=== PATIENT | male | born 1940 | race Caucasian/White ===

== ENCOUNTER 2019-10-13 06:56 | Outpatient (CLI) | payer MEDICARE, OTHER, SELFPAY ==
--- NOTE | 2019-10-13 07:13 | US_ITS ---
WS: [id number] RIGHT UPPER QUADRANT ULTRASOUND HISTORY: LIVER FUNCTION TEST ABNORMAL COMPARISON: CT abdomen 09/28/2019 Liver: 16.5 cm in length. Mild enlargement of the liver. Diffuse heterogeneity throughout the liver. Portal vein remains patent. Gallbladder: Abnormal gallbladder. Diffuse gallbladder wall thickening. No pericholecystic fluid. Pro minent gallbladder fold but no definite stones are identified. Small stones could be obscured within the gallbladder fold. CBD: 6.2 mm Pancreas: Not well visualized. Right kidney: 9.3 cm in length. Exophytic cyst from the superior pole of the RIGHT kidney measures 4. 2 x 3.7 x 5.0 cm. Cyst arises from an area of cortical thinning and scarring. No solid mass or obstru ction. Aorta and IVC: Unremarkable. No ascites. US/US abdomen limited [id number] IMPRESSION: 1. Markedly abnormal gallbladder. Diffuse gallbladder wall thickening with a p rominent fold. Changes may be related to chronic cholecystitis or hepatocellula r disease. Due to the marked abnormal appearance of the gallbladder suggest nadege gical evaluation. No definite cholelithiasis. 2. Common bile duct is top normal size at 6.2 mm. 3. Simple cyst RIGHT kidney.
== END 2019-10-13 06:57 | disposition home or self-care (01) ==
LOC: RAD 07:04
PROVIDERS: Family Provider Family Medicine; PCP Family Medicine; Visit Provider Family Medicine
DX: N28.1 Cyst of kidney, acquired (principal); R94.8 Abnormal results of function studies of other organs and systems; R10.84 Generalized abdominal pain
CPT/HCPCS: 76705

== ENCOUNTER 2019-11-02 06:45 | Outpatient (CLI) | payer MEDICARE, OTHER, SELFPAY ==
--- NOTE | 2019-11-02 07:15 | US_ITS ---
WS: [id number] RIGHT UPPER QUADRANT ULTRASOUND HISTORY: FOLLOW UP FROM CT COMPARISON: 09/28/2019 CT. Liver: 17.3 cm in length. Liver is mildly enlarged. Surface of the liver is slightly nodular. No bile duct or intrahepatic duct dilatation. No mass. Gallbladder: Mild diffuse gallbladder wall thickening. Gallbladder wall measures 4.8 mm. No perichole cystic fluid. There is a small polyp, prominent fold or tumefactive sludge in the gallbladder. CBD: 4.7 mm Pancreas: Normal size and echogenicity. Right kidney: 10.5 cm in length. Mild increased echogenicity and lobulated renal contour. No solid ma ss. There is a simple cyst exophytic from the upper pole measuring 4.5 x 4.1 x 3.1 cm. Aorta and IVC: Unremarkable. No ascites. US/US gall bladder [id number] IMPRESSION: 1. Abnormal gallbladder. Diffuse gallbladder wall thickening without acute per icholecystic fluid. Suspect the changes are all related to chronic cholecystiti s or hepatocellular disease. No Mcmullen's sign. 2. Early cirrhosis suspected. 3. Simple RIGHT renal cyst.
[2019-11-02 08:18] LABS: Alanine Aminotransferase 15 U/L (0-41); Albumin Level 4.5 g/dL (3.5-5.2); Alkaline Phosphatase 157 IU/L (40-130); Aspartate Amino Transferase 18 U/L (0-40); Total Bilirubin 0.9 mg/dL (0.15-1.2); Total Protein 7.5 g/dL (6.6-8.7)
== END 2019-11-02 06:46 | disposition home or self-care (01) ==
PROVIDERS: Family Provider Family Medicine; PCP Family Medicine; Visit Provider Surgery
DX: N28.1 Cyst of kidney, acquired (principal); R93.3 Abnormal findings on diagnostic imaging of other parts of digestive tract; R93.2 Abnormal findings on diagnostic imaging of liver and biliary tract
CPT/HCPCS: 36415; 76705; 80076

== ENCOUNTER 2019-12-23 13:56 | Outpatient (CLI) | payer MEDICARE, OTHER, SELFPAY ==
--- NOTE | 2019-12-23 15:00 | USCV_ITS ---
Phylicia Chico Age: 79 Gender: M : 1940 Exam Date: 12/23/2019 14:16 Ordering Phys: Milka Briscoe MD ([email or web address]) Technologist: Rosendo Torre Exam Location: [facility] [place] Indication: aortic regurgitiation BP: 134 / 84 HR: 93 Rhythm: Sinus Technical Quality: Adequate MEASUREMENTS (Male / Female) Normal Values 2D ECHO LV Diastolic Diameter PLAX 4.1 cm 4.2 - 5.9 / 3.9 - 5.3 cm LV Systolic Diameter PLAX 3.0 cm IVS Diastolic Thickness 1.1 cm 0.6 - 1.0 / 0.6 - 0.9 cm IVS Systolic Thickness 1.6 cm LVPW Diastolic Thickness 1.1 cm 0.6 - 1.0 / 0.6 - 0.9 cm LVPW Systolic Thickness 1.3 cm LVOT Diameter 2.0 cm LV Ejection Fraction 2D Teich 52.7 % LV Ejection Fraction MOD 2C 65.1 % LV Ejection Fraction 2C AL 64.5 % LA Diameter 3.7 cm LA Width 4.3 cm LA Height 4.6 cm RA Width 3.2 cm RA Height 4.3 cm Aorta at Sinotubular Diameter 3.5 cm M-MODE LV Diastolic Diameter MM 4.8 cm 4.2 - 5.9 / 3.9 - 5.3 cm LV Systolic Diameter MM 3.6 cm LV Ejection Fraction MM Teich 49.1 % IVS Diastolic Thickness MM 0.9 cm 0.6 - 1.0 / 0.6 - 0.9 cm IVS Systolic Thickness MM 0.9 cm LVPW Diastolic Thickness MM 1.1 cm 0.6 - 1.0 / 0.6 - 0.9 cm LVPW Systolic Thickness MM 1.6 cm RV Diastolic Diameter MM 1.8 cm Aortic Annulus Diameter 4.3 cm LA Ao Ratio MM 0.9 MV E Point Septal Separation 1.9 cm DOPPLER AV Peak Velocity 230.0 cm/s LVOT Peak Velocity 114.0 cm/s AV Area Cont Eq vti 2.0 cm squared AV Area Cont Eq pk 1.6 cm squared MV Area PHT 1.8 cm squared Mitral E to A Ratio 0.7 MV E' Velocity 9.0 cm/s Mitral E to MV E' Ratio 1.8 Mitral E to LV E' Lateral Ratio 8.4 Mitral E to LV E' Septal Ratio 1.0 TR Peak Velocity 244.0 cm/s TR Peak Gradient 23.8 mmHg TV Peak E Velocity 72.0 cm/s Right Atrial Pressure 3.0 mmHg Pulmonary Artery Systolic Pressu 26.8 mmHg FINDINGS Left Ventricle Normal left ventricular size, systolic function and wall thickness, with no regional wall motion abnormalities. Left ventricular ejection fraction is estimated at 55-60 %. Right Ventricle Normal right ventricular size and systolic function. Right ventricular systolic pressure 26.8 mmHg. Right Atrium Normal right atrial size. Right atrial pressure estimated at 3 mmHg. Left Atrium Normal left atrial size. Mitral Valve Moderately thickened mitral valve. No mitral valve stenosis. Mild mitral valve regurgitation. Aortic Valve Mildly thickened and calcified trileaflet aortic valve. Aortic valve sclerosis without stenosis. Moderate aortic valve regurgitation. Tricuspid Valve Structurally normal tricuspid valve. Mild tricuspid valve regurgitation. Pulmonic Valve Pulmonic valve not well visualized. Trace pulmonary valve regurgitation. Pericardium No pericardial effusion. Aorta Upper normal aortic root. Ascending aorta not well visualized. CONCLUSIONS 1. Normal left ventricular size, systolic function and wall thickness, with no regional wall motion abnormalities. Left ventricular ejection fraction is estimated at 55-60 %. 2. Normal right ventricular size and systolic function. 3. Moderate aortic valve regurgitation. 4. Pulmonary artery pressure estimated at 27 mmHg. 5. When compared to previous echocardiogram dated 11/08/2013, there is aortic valve regurgitation now. Milka Briscoe MD (Electronically Signed) Final Date: 25 December 2019 15:47 S
== END 2019-12-23 13:57 | disposition home or self-care (01) ==
LOC: US 13:58
PROVIDERS: Family Provider Family Medicine; PCP Family Medicine; Visit Provider Internal Medicine Cardiovascular Disease
DX: I35.1 Nonrheumatic aortic (valve) insufficiency (principal); I49.9 Cardiac arrhythmia, unspecified
CPT/HCPCS: 93306

== ENCOUNTER 2020-12-22 09:37 | Outpatient (CLI) | payer MEDICARE, OTHER, SELFPAY ==
--- NOTE | 2020-12-22 10:30 | CT_ITS ---
WS: [id number] CT scan of the thoracic aorta. Additional two-dimensional coronal and sagittal reconstruction was per formed. MIP images were also performed. 12/22/2020 Clinical Data: I35.1 - Nonrheumatic aortic (valve) insufficiency Comparison: None. DLP: 1509.[address] scans at [facility] use at least one of these dose optimization techniques: automat ed exposure control; mA and/or kV adjustment per patient size (includes targeted exams where dose is matched to clinical indication); or iterative reconstruction. Findings: The proximal portion of the ascending thoracic aorta in greatest diameter is 4.37 cm. The aortic arch measures 3.33 cm. The greatest diameter of the descending thoracic aorta is 3.41 cm. No dissection i s seen. There is minimal calcification in the wall of the descending thoracic aorta. The pulmonary arterial system is normal. Heart size is at the upper limits of normal. There is mitral and aortic valvular calcification. There is calcification of the left coronary artery. No pericardia l fluid is seen. There are a large number of anterior and middle mediastinal lymph nodes but no axill tacos lymph nodes. No pneumonia or pneumothorax is seen. No nodules, masses or effusions are present. T here is a small hiatal hernia. The upper abdomen shows a 4.75 cm cyst in the superior pole of the right kidney. The bones of the tho rax demonstrate mild osteoarthritic change. CT/CT angio chest [id number] IMPRESSION: 1. Minimal dilatation of the ascending thoracic aorta of 4.37 cm. 2. Calcification of the mitral and aortic valves and calcification in the left coronary artery.
[2020-12-22 10:52] LABS: Blood Urea Nitrogen 18 mg/dL (8-23)
[2020-12-22] MEDS: iohexol 350 mg/mL 100 mL Btl IV (11:04)
== END 2020-12-22 09:38 | disposition home or self-care (01) ==
LOC: RADWPI 09:38
PROVIDERS: PCP Family Medicine; Visit Provider Internal Medicine Cardiovascular Disease
DX: I35.1 Nonrheumatic aortic (valve) insufficiency (principal); I77.810 Thoracic aortic ectasia; M72.2 Plantar fascial fibromatosis; I25.10 Atherosclerotic heart disease of native coronary artery without angina pectoris
CPT/HCPCS: 71275; 82565; 84520; Q9967

== ENCOUNTER 2021-08-21 09:38 | Outpatient (CLI) | payer MEDICARE, OTHER, SELFPAY ==
--- NOTE | 2021-08-21 09:43 | FL_ITS ---
WS: [id number] Exam: MN upper GI series [id number] Date/Time of Exam: 08/21/2021 9:43 AM Reason For Exam: DYSPHAGIA, INTERMITTENT Swallowing function was normal the level of the oropharynx. There is significant esophageal spasm of the mid and lower esophagus. A small hiatal hernia with gastroesophageal reflux was noted during fluo roscopic examination. No esophageal stricture or mass was noted. There is prominence of gastric mucos a suggesting gastritis. No gastric mass or ulcer was seen. The duodenal bulb and C-loop appear normal . A jejunal diverticulum is noted. MN/MN upper GI series [id number] IMPRESSION: 1. Presbyesophagus. Moderate size hiatal hernia and gastroesophageal reflux ext ending into the lower one third of the esophagus. 2. Prominent gastric mucosa suggesting gastritis. No gastric or duodenal ulcer identified. Small bowel diverticulum.
== END 2021-08-21 09:39 | disposition home or self-care (01) ==
PROVIDERS: PCP Family Medicine; Visit Provider Family Medicine
DX: K44.9 Diaphragmatic hernia without obstruction or gangrene (principal); K21.9 Gastro-esophageal reflux disease without esophagitis
CPT/HCPCS: 74240

== ENCOUNTER → 2021-12-26 07:53 | Day surgery (SDC) | payer MEDICARE, OTHER, SELFPAY ==
[2021-12-26] VITALS (11 sets, daily range): BP systolic 117–138; BP diastolic 61–99; PULSE 72–88; RESP 16–18; TEMP 36.1–36.5; O2SAT 96–99; BMI 27.0
[2021-12-26] MEDS: acetaminophen 500 mg Tablet PO ×2 (08:57→12:44)
[2021-12-26] MEDS: diphenhydrAMINE 12.5 mg/5 mL UDC 10 mL PO ×2 (08:58→12:38)
[2021-12-26] MEDS: sodium chloride 0.9% (100 ml) 100 ML 30 ML ×2 (10:05→13:10)
== END ==
PROVIDERS: Visit Provider Family Medicine
DX: D64.9 Anemia, unspecified (principal); R06.02 Shortness of breath; I48.91 Unspecified atrial fibrillation
CPT/HCPCS: 36415; 36430; 86850; 86900; 86920; P9016; P9040

== ENCOUNTER 2022-01-10 13:54 | Outpatient (CLI) | payer MEDICARE, OTHER, SELFPAY ==
[2022-01-10 15:02] LABS: Basophils % 0.8 %; Eosinophils # 0.1 10^3/uL (0.0-0.8); Eosinophils % 1.3 %; Hematocrit 33.7 % (42.0-52.0); Hemoglobin 10.1 g/dL (11.7-16.6); Lymphocytes # 0.9 10^3/uL (0.8-4.8); Lymphocytes % 17.9 %; Mean Corpuscular Hemoglobin 22.1 pg (28.0-34.0); Mean Corpuscular Volume 73.7 fl (80-94); Mean Platelet Volume 8.6 fL (7.4-10.4); Monocytes # 0.6 10^3/uL (0.2-0.9); Monocytes % 11.9 %; Neutrophils # 3.25 10^3/uL (1.8-7.7); Neutrophils % 67.7 %; Nucleated Red Blood Cells % 0 %; Platelet Count 323 10^3/cmm (130-400); Red Blood Count 4.57 10^6/uL (4.1-5.3); Red Cell Distribution Width 25.1 % (12.1-15.1); White Blood Count 4.8 10^3/uL (4.0-10.0)
[2022-01-10 15:18] LABS: Ferritin 26 ng/mL (30-400); Iron 29 ug/dL (59-158); Total Iron Binding Capacity 360 mcg/dl; Unsaturated Iron Binding 331 ug/dL (112-347)
[2022-01-10 15:35] LABS: Vitamin B12 923 pg/mL (232-1245)
--- NOTE | 2022-01-10 16:52 | ONC CON_ITS ---
Dr. Cota New Patient Note Patient: Chico Whatley Unit #: [id number]: 1940 Dicatated By: Ene Cota M.D.Date of Visit: Jan 10, 2022 Onc MED New Patient/Consult Referring Physician: Dr. Sammy Cai M.D. History of Present Illness: Mr. Braden Whatley, is a 81-year-old gentleman with history of atrial fibrillation started on anticoagulation with Eliquis in the beginning but due to high copayment, he was switched to Xarelto, as per patient within few weeks of starting anticoagulation, he started feeling weak and tired, progressive dyspnea on exertion and hip/lower back pain after walking or exertion, and on December 21, 2021, he went to see his PMD and CBC done on that day showed white blood count 4.3 hemoglobin 6.9 g hematocrit 24, platelets 286,000 MCV 68.6, patient was given 2 units of packed RBC and started on oral iron. Patient denies any history of melena or hematochezia, denies any history of hemoptysis or hematemesis denies any history of hematuria denies any jaundice. Patient said his last colonoscopy was done in October [address] Dominguez and it was unremarkable never had EGD. Patient denies any indigestion or heartburn, denies any abdominal pain or fullness, denies any recurrent fever, denies any weight loss denies any peripheral lymphadenopathy, denies any night sweats. Patient said after blood transfusion he felt much better his dyspnea on exertion improved his hip/lower back pain resolved and now tolerating oral iron well and take Metamucil for constipation. Past Medical History: Mr. Whatley's medical history consists of aortic regurgitation, arteriosclerosis, atrial fibrillation, dyslipidemia, hypertension, and stroke. Past Surgical History: Mr. Whatley's surgical history is unremarkable. Medications: Advil PM 2 Tablet (of 200-38 mg) Oral at bedtime, Aspirin 1 Tablet (of 81 mg) Tablet, enteric coated Oral daily, B-12 1 Tablet (of 1000 mcg) Oral daily, Cetirizine HCl 1 Tablet (of 10 mg) Oral daily, Cholecalciferol 1 Tablet (of 25 mcg ) Oral daily, dilTIAZem HCl ER Coated Beads Capsule SR 24 HR Oral, Ferrous Sulfate 1 Tablet (of 325 (65 fe) mg) Oral daily, Fluticasone Propionate Suspension Nasal, hydroCHLOROthiazide Capsule Oral, LORazepam Tablet Oral, Losartan Potassium Tablet Oral, Pantoprazole Sodium 1 Tablet (of 40 mg) Tablet, enteric coated Oral daily, Rivaroxaban 1 Tablet (of 20 mg) Oral Allergies: No Known Allergies. Social History: Mr. Whatley is . Mr. Whatley no longer smokes. He is an active drinker. patient reported drinking 1 glass of wine per night. Family History: There is no documented family history. Review Of Symptoms: Review of Systems is not available for this patient. Vital Signs: Performed on Jan 10, 2022 15:32: 2, 0, 0.00, 0.00 sq.m, 98 %, 86 /min, 18 /min, 133/90 mm(hg), 96.9 F (LOW), and 172.6 lbs (HIGH). Performance Status: 1 - No physically strenuous activity, but ambulatory and able to carry out light or sedentary work (e.g. office work, light house work). (ECOG) Physical Examination: ENMT - No mouth sores, no thrush, no jaundice, no cervical lymphadenopathy, Respiratory - Poor air entry otherwise clear, Cardiovascular - Irregular rhythm and rate, Abdomen - Soft, bowel sounds present, Extremities - , No visible edema. Lab/Imaging: Most recent lab results are not available for this patient. Impression: Microcytic hypochromic anemia most likely due to iron deficiency due to chronic GI blood loss due to anticoagulation for newly diagnosed atrial fibrillation. Other possibility could be iron malabsorption but less likely as patient is responding well to oral iron., Considering his age, underlying myelodysplasia cannot be ruled out. Atrial fibrillation, on Xarelto Status post 2 units of packed RBC on December 21, 2021 for hemoglobin 6.9 g, on oral iron since December 21, 2021 Plan: Discussed with patient regarding his labs white blood count 4.8 hemoglobin 10.1 g hematocrit 33.7 platelets 323,000 MCV 73.7 with normal differential Clinically, patient doing well with no new signs symptoms his follow-up CBC done today shows improvement in his iron deficiency anemia although patient received 2 units of packed RBC for hemoglobin 6.9 g on December 21, 2021 but it appears his iron supplement is also helping him, at this point , we will continue with same and he will return to clinic in 1 month with CBC and iron studies, if follow-up lab work-up shows improvement in his hemoglobin as well as iron stores, will continue with same, on the other hand, if patient develops progressive iron deficiency anemia , in that case we will consider EGD and if needed capsule endoscopy to rule out small bowel AVMs causing chronic blood loss while on anticoagulation. Patient was advised to call us, in case, he develops dyspnea on exertion, lightheadedness or any blood in his stools. In the meantime, he was advised to be compliant with oral iron supplement, for better absorption, he was advised to take on empty stomach with vitamin C or orange juice. Signed By: Ene Cota M.D. <<Signature on File>>
== END 2022-01-10 13:55 | disposition home or self-care (01) ==
LOC: ONCMED 14:04
PROVIDERS: PCP Family Medicine; Visit Provider Internal Medicine Hematology & Oncology
DX: D50.9 Iron deficiency anemia, unspecified (principal); I48.91 Unspecified atrial fibrillation; E78.5 Hyperlipidemia, unspecified; I10 Essential (primary) hypertension; I35.1 Nonrheumatic aortic (valve) insufficiency; Z79.01 Long term (current) use of anticoagulants; Z86.73 Personal history of transient ischemic attack (TIA), and cerebral infarction without residual deficits
CPT/HCPCS: 36415; 82607; 82728; 83540; 83550; 85025; 99204

== ENCOUNTER 2022-03-07 10:21 | Oncology outpatient (recurring) (ONCR) | payer MEDICARE, OTHER, SELFPAY | END 2022-04-05 23:59 | disposition home or self-care (01) | PROVIDERS: PCP Family Medicine; Referring Provider Family Medicine; Visit Provider Internal Medicine Hematology & Oncology | DX: D50.9 Iron deficiency anemia, unspecified (principal); I35.1 Nonrheumatic aortic (valve) insufficiency; I47.1 Supraventricular tachycardia; Z79.899 Other long term (current) drug therapy | CPT/HCPCS: 82607; 82728; 83540; 83550; 85025; 99214 ==

== ENCOUNTER → 2022-03-29 14:12 | Outpatient (BNVA) | payer MEDICARE, OTHER, SELFPAY | PROVIDERS: PCP Family Medicine; Visit Provider Nurse Practitioner Family | DX: M25.561 Pain in right knee (principal); M17.11 Unilateral primary osteoarthritis, right knee | CPT/HCPCS: 20610; 73560; 73565; 99203; 99204 ==

== ENCOUNTER 2022-04-30 08:20 | Emergency (ER) | payer MEDICARE, OTHER, SELFPAY ==
--- NOTE | 2022-04-30 08:20 | XR_ITS ---
WS: [id number] Exam: XR chest 1V portable [id number] Date/Time of Exam: 04/30/2022 8:20 AM Reason For Exam: stroke symptoms No priors. Mild bibasal pulmonary infiltrates that may represent pneumonia or chronic change. No pleural effusio n or pneumothorax. Normal cardiomediastinal silhouette for technique. Advanced DJD of both shoulders. XR/XR chest 1V portable [id number] IMPRESSION: 1. Mild bibasal pulmonary infiltrates that may represent pneumonia or chronic c hange.
--- NOTE | 2022-04-30 08:20 | CT_ITS ---
WS: [id number] CT HEAD TECHNIQUE: Noncontrast CT of the head obtained from the skullbase to the vertex. CLINICAL INFORMATION: Symptoms of Acute Stroke COMPARISON: 01/21/14 CTA, MRI 2013 DLP: [address] scans at [facility] use at least one of these dose optimization techniques: automated e xposure control; mA and/or kV adjustment per patient size (includes targeted exams where dose is matc hed to clinical indication); or iterative reconstruction. FINDINGS: Intraparenchymal hematoma involving the LEFT bustillos radiata extending into the LEFT basal ganglia. He matoma measures approximately 2.1 x 1.8 x 2.8 cm AP by transverse by craniocaudal. Associated intrave ntricular extension into the posterior LEFT lateral ventricle. Mild associated mass effect LEFT late ral ventricle. Minimal LEFT to RIGHT midline shift measuring 2-3 mm. Moderate small vessel changes. Moderate parenchymal volume loss. Evidence of chronic ischemia in the RIGHT frontal periventricular white matter. Intracranial vascular calcification. Mastoid air cells well aerated. Mild mucosal thickening ethmoid air cells. CT/CT head wo con* [id number] IMPRESSION: 1. Intraparenchymal hematoma involving the LEFT bustillos radiata extending into the LEFT basal ganglia. Hematoma measures approximately 2.1 x 1.8 x 2.8 cm AP b y transverse by craniocaudal. Consider hypertensive hemorrhage. 2. Associated intraventricular extension into the posterior LEFT lateral ventr icle 3. Minimal LEFT to RIGHT midline shift measuring 2 mm. 4. Moderate small vessel changes. Moderate parenchymal volume loss. Notified Isaiah Perez DO at 04/30/2022 8:34 AM.
--- NOTE | 2022-04-30 08:20 | ECG_ITS ---
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 Measurements Intervals [place] Rate: 90 P: 14 UT: 198 QRS: -42 QRSD: 103 T: 29 QT: 363 QTc: 445 Interpretive Statements SINUS RHYTHM WITH OCCASIONAL SUPRAVENTRICULAR PREMATURE COMPLEXES POSSIBLE ANTERIOR MYOCARDIAL INFARCTION , OF INDETERMINATE AGE [30 ms Q WAVE IN V3/V4, OR R < 0.2 mV IN V4] INFERIOR MYOCARDIAL INFARCTION , OF INDETERMINATE AGE [40+ ms Q WAVE AND/OR ST/T ABNORMALITY IN II/aVF] No previous ECG available for comparison Electronically Signed On 04-30-2022 20:49:27 CDT by Naeem Ly M.D. [email or web address]
--- NOTE | 2022-04-30 08:33 | W.ED.NEUROSD ---
HPI - Neuro Symptoms/Deficit General: Chief Complaint: Neuro Symptoms/Deficit Stated Complaint: STROKE LIKE SYMPTOMS Time Seen by Provider: 04/30/22 08:20 History of Present Illness: 81-year-old male presents emergency room via EMS he was last known well at 9:00 last night according to the . The says she thinks he got up sometime through the night but she did not see him everything seemed to go well but she could not verify that hemorrhoids at his normal baseline and really was not sure of the time. This morning he is aphasic he intermittently will follow commands when he initially arrived he is not following any commands but later did follow some commands like moving his feet did not seem to-year-old move his right arm. He is on Xarelto for his atrial fibrillation he last took it last evening. History of a previous stroke. Onset (ago): unknown Location: right face, right arm, right leg, ataxia and altered History of same: No Severity: severe Quality: weak Relieving factors: none Exacerbating factors: none Context: sudden onset and found down Associated symptoms: Reports weakness; Deny cough, fevers/chills, anorexia, seizures, short of breath or tingling Treatments Prior to Arrival: none Review of Systems General: Reports: ROS unobtainable due to mental status PFSH ED PFSH: Medical History Aortic regurgitation Arteriosclerosis Ascending aorta dilatation CVA (cerebral vascular accident) CVA in 2014 Dyslipidemia Essential hypertension Iron deficiency anemia Osteoarthritis of right knee Family History Other CAD (coronary artery disease) Hyperlipidemia Hypertension Denies family history of Diabetes Clotting disorder Dementia Psychiatric illness Chronic kidney disease (CKD) Suicide Anesthesia complication Bleeding disorder Family history of premature coronary artery disease Lung disease Cancer Stroke Social History Smoking and tobacco status: former smoker Second hand smoke exposure: No Alcohol intake: current Alcohol intake frequency: holidays/special occasions only Alcohol type: beer Physical Exam HENMT: COMMON NORMALS: normocephalic and atraumatic HEAD & SCALP: normocephalic and atraumatic Neck/C-Spine: COMMON NORMALS: no JVD Resp: COMMON NORMALS: normal respiratory effort, No retractions, No use of accessory muscles and clear to auscultation bilaterally AUSCULTATION: clear to auscultation bilaterally Cardio: COMMON NORMALS: no JVD, regular rate, regular rhythm and No murmurs present (Cardio) RATE: regular rate RHYTHM: regular rhythm GI: COMMON NORMALS: Soft to palpation and No hepatosplenomegaly present AUSCULTATION: Yes normoactive bowel sounds PALPATION: Yes Soft to palpation, No Tenderness to palpation present (GI), No Guarding due to palpation present (GI) and Yes No hepatosplenomegaly present Course Vital Signs: Vital signs: Vital Signs Pulse Rate 93 04/30/22 08:47 Respiratory Rate 19 H 04/30/22 08:47 Blood Pressure 142/89 04/30/22 08:47 Pulse Oximetry 95 04/30/22 08:47 MDM - Neuro Symptoms/Deficit Medical Decision Making Significant intracranial bleed mild hypertension started on nicardipine to control blood pressure patient is on Eliquis. Discussed Dr. Brown per policy and procedure to physician is required to sign off on factor X inhibitor reversal for intracranial bleed we both concur that she he is an appropriate candidate and signed off. Patient was given low-dose because it has been greater than 8 hours since his last dose of Xarelto. Discussed with the family transferred via air ambulance to [facility] in [place] to see neurosurgery. Medical Records I reviewed the patient's medical records. Lab Data : 04/30/22 08:30 04/30/22 08:30 Radiology Impressions Chest X-Ray 04/30/22 08:20 IMPRESSION: 1. Mild bibasal pulmonary infiltrates that may represent pneumonia or chronic change. Head CT 04/30/22 08:20 IMPRESSION: 1. Intraparenchymal hematoma involving the LEFT bustillos radiata extending into the LEFT basal ganglia. Hematoma measures approximately 2.1 x 1.8 x 2.8 cm AP by transverse by craniocaudal. Consider hypertensive hemorrhage. 2. Associated intraventricular extension into the posterior LEFT lateral ventricle 3. Minimal LEFT to RIGHT midline shift measuring 2 mm. 4. Moderate small vessel changes. Moderate parenchymal volume loss. Notified Iasiah Perez DO at 04/30/2022 8:34 AM. Laboratory Results WBC 8.0 10^3/uL (4.0-10.0) 04/30/22 08:30 RBC 5.09 10^6/uL (4.1-5.3) 04/30/22 08:30 Hgb 16.2 g/dL (11.7-16.6) 04/30/22 08:30 Hct 45.9 % (42.0-52.0) 04/30/22 08:30 MCV 90.2 fl (80-94) 04/30/22 08:30 MCH 31.8 pg (28.0-34.0) 04/30/22 08:30 MCHC 35.3 g/dL (30.0-36.0) 04/30/22 08:30 RDW 13.4 % (12.1-15.1) 04/30/22 08:30 Plt Count 287 10^3/cmm (130-400) 04/30/22 08:30 MPV 9.6 fL (7.4-10.4) 04/30/22 08:30 Neut % (Auto) 66.9 % 04/30/22 08:30 Lymph % (Auto) 19.5 % 04/30/22 08:30 Quay % (Auto) 9.4 % 04/30/22 08:30 Eos % (Auto) 3.1 % 04/30/22 08:30 Baso % (Auto) 0.5 % 04/30/22 08:30 Neut # (Auto) 5.37 10^3/uL (1.8-7.7) 04/30/22 08:30 Lymph # (Auto) 1.6 10^3/uL (0.8-4.8) 04/30/22 08:30 Quay # (Auto) 0.8 10^3/uL (0.2-0.9) 04/30/22 08:30 Eos # (Auto) 0.3 10^3/uL (0.0-0.8) 04/30/22 08:30 Baso # (Auto) 0.0 10^3/uL (0.0-0.1) 04/30/22 08:30 Nucleated RBC % (auto) 0 % 04/30/22 08:30 Nucleated RBCs # 0.0 /100WBC 04/30/22 08:30 PT 17.30 SECONDS (12.1-14.9) H 04/30/22 08:30 INR 1.38 (0.8-1.2) H 04/30/22 08:30 APTT 32.0 SECONDS (23.9-36.7) 04/30/22 08:30 Sodium 138 mmol/L (136-145) 04/30/22 08:30 Potassium 3.4 mmol/L (3.5-5.1) L 04/30/22 08:30 Chloride 100 mmol/L (98-107) 04/30/22 08:30 Carbon Dioxide 24 mmol/L (22-29) 04/30/22 08:30 Anion Gap 17.4 (5-19) 04/30/22 08:30 BUN 26 mg/dL (8-23) H 04/30/22 08:30 Creatinine 1.0 mg/dL (0.7-1.2) 04/30/22 08:30 GFR Calculation Not Reportable 04/30/22 08:30 Glucose 125 mg/dL (65-115) H 04/30/22 08:30 POC Glucose 133 mg/dL (70-110) H 04/30/22 08:33 Calculated Osmolality 292 mOsm/kg (285-295) 04/30/22 08:30 Calcium 10.2 mg/dL (8.5-10.5) 04/30/22 08:30 Total Bilirubin 0.8 mg/dL (0.15-1.2) 04/30/22 08:30 AST 22 U/L (0-40) 04/30/22 08:30 ALT 20 U/L (0-41) 04/30/22 08:30 Alkaline Phosphatase 132 IU/L (40-130) H 04/30/22 08:30 Total Protein 7.0 g/dL (6.6-8.7) 04/30/22 08:30 Albumin 4.4 g/dL (3.5-5.2) 04/30/22 08:30 Globulin 2.6 g/dL (1.3-4.6) 04/30/22 08:30 Discharge Plan Discharge Patient Disposition: Xfer Short-Term Hosp Clinical Impression: Intracranial hemorrhage, On continuous oral anticoagulation Referrals: Sammy Cai DO [Primary Care Provider] - Coding Level of Care Code ED Annual Campaign Manager for Chg Anshul
[2022-04-30 08:36] LABS: Glucose Point of Care 133 mg/dL (70-110)
[2022-04-30 08:37] VITALS: BP 146/92; PULSE 91; RESP 21; O2SAT 92
[2022-04-30 08:45] VITALS: BP 145/86; PULSE 91; RESP 24; O2SAT 92
[2022-04-30 08:47] VITALS: BP 142/89; PULSE 93; RESP 19; O2SAT 95
[2022-04-30 08:52] VITALS: BMI 26.6
[2022-04-30 08:53] LABS: Basophils % 0.5 %; Eosinophils # 0.3 10^3/uL (0.0-0.8); Eosinophils % 3.1 %; Hematocrit 45.9 % (42.0-52.0); Hemoglobin 16.2 g/dL (11.7-16.6); Lymphocytes # 1.6 10^3/uL (0.8-4.8); Lymphocytes % 19.5 %; Mean Corpuscular HGB Conc 35.3 g/dL (30.0-36.0); Mean Corpuscular Hemoglobin 31.8 pg (28.0-34.0); Mean Corpuscular Volume 90.2 fl (80-94); Mean Platelet Volume 9.6 fL (7.4-10.4); Monocytes # 0.8 10^3/uL (0.2-0.9); Monocytes % 9.4 %; Neutrophils # 5.37 10^3/uL (1.8-7.7); Neutrophils % 66.9 %; Nucleated Red Blood Cells % 0 %; Platelet Count 287 10^3/cmm (130-400); Red Blood Count 5.09 10^6/uL (4.1-5.3); Red Cell Distribution Width 13.4 % (12.1-15.1)
[2022-04-30 09:02] LABS: INR 1.38 (0.8-1.2)
[2022-04-30 09:19] LABS: Alanine Aminotransferase 20 U/L (0-41); Albumin Level 4.4 g/dL (3.5-5.2); Alkaline Phosphatase 132 IU/L (40-130); Anion Gap 17.4 (5-19); Aspartate Amino Transferase 22 U/L (0-40); Blood Urea Nitrogen 26 mg/dL (8-23); Calcium 10.2 mg/dL (8.5-10.5); Carbon Dioxide 24 mmol/L (22-29); Chloride 100 mmol/L (98-107); Globulin 2.6 g/dL (1.3-4.6); Glucose 125 mg/dL (65-115); Osmolality Calculated 292 mOsm/kg (285-295); Potassium 3.4 mmol/L (3.5-5.1); Sodium 138 mmol/L (136-145); Total Bilirubin 0.8 mg/dL (0.15-1.2)
[2022-04-30] MEDS: factor xa, inactivated-zhzo 480 MG in empty flexible container 1 EACH, non-DEHP filter ... 24 MG IV (10:38)
[2022-04-30] MEDS: factor xa, inactivated-zhzo 400 MG in empty flexible container 1 EACH, non-DEHP filter ... 180 MG IV (10:39)
--- NOTE | 2022-04-30 10:41 | PC.NURSE ---
Medication was given to the patient on the heliport with no way of scanning the patient and the med at that time.
== END 2022-04-30 09:28 | disposition short-term general hospital (02) ==
PROVIDERS: Emergency Provider Family Medicine; PCP Family Medicine
DX: I62.9 Nontraumatic intracranial hemorrhage, unspecified (principal); Z79.01 Long term (current) use of anticoagulants; Z86.73 Personal history of transient ischemic attack (TIA), and cerebral infarction without residual deficits; E78.5 Hyperlipidemia, unspecified; I10 Essential (primary) hypertension; Z87.891 Personal history of nicotine dependence
CPT/HCPCS: 36416; 70450; 71045; 80053; 82962; 85025; 85610; 85730; 93005; 99291; J7169

== ENCOUNTER 2022-06-02 13:35 | Emergency (ER) | payer MEDICARE, OTHER, SELFPAY ==
[2022-06-02 13:39] VITALS: BP 104/66; PULSE 89; RESP 16; TEMP 36.9; O2SAT 95; BMI 24.3
--- NOTE | 2022-06-02 14:36 | W.ED.MALEGU ---
HPI - Male Genitourinary General: Chief complaint: Urogenital-Male Stated complaint: catheter problems Time Seen by Provider: 06/02/22 13:58 History of Present Illness: Patient comes in with urinary retention. States that since leaving the hospital after his stroke his has been straight cathing him for urine. States that the new catheters they received do not work as well and they have been unable to pass the catheter for the past few hours. No other concerns at this time. Associated symptoms: Deny dysuria, nausea or vomiting Review of Systems Const: Denies: fever(s) or body aches Eyes: Denies: change in vision or blurry vision ENMT: Denies: throat pain or odynophagia Card: Denies: chest pain or palpitations Resp: Denies: dyspnea or productive cough GI: Reports: abdominal pain; Denies: nausea or vomiting : Denies: flank pain or dysuria Musc: Denies: neck pain or back pain Skin/Breast: Denies: rash or pruritus Neuro: Denies: headache(s) or numbness in extremities Psych: Denies: anxiety or change in appetite Endo: Denies: polyuria or excessive sweating PFSH ED PFSH: Medical History Aortic regurgitation Arteriosclerosis Ascending aorta dilatation CVA (cerebral vascular accident) CVA in 2014 Dyslipidemia Essential hypertension Iron deficiency anemia Osteoarthritis of right knee Family History Other CAD (coronary artery disease) Hyperlipidemia Hypertension Denies family history of Diabetes Clotting disorder Dementia Psychiatric illness Chronic kidney disease (CKD) Suicide Anesthesia complication Bleeding disorder Family history of premature coronary artery disease Lung disease Cancer Stroke Social History Smoking and tobacco status: former smoker Second hand smoke exposure: No Alcohol intake: current Alcohol intake frequency: holidays/special occasions only Alcohol type: beer Physical Exam Const: COMMON NORMALS: no acute distress, patient oriented x3, healthy appearing and alert HENMT: COMMON NORMALS: normocephalic and atraumatic HEAD & SCALP: normocephalic and atraumatic Eye: COMMON NORMALS: Equal, round and reactive pupils present and EOMs intact bilaterally PUPIL: Yes Equal, round and reactive pupils present Neck/C-Spine: COMMON NORMALS: full ROM and supple Resp: COMMON NORMALS: normal respiratory effort, No retractions and No use of accessory muscles Cardio: COMMON NORMALS: regular rate and regular rhythm RATE: regular rate RHYTHM: regular rhythm GI: COMMON NORMALS: Normal to inspection, nondistended, normoactive bowel sounds present, Soft to palpation and non-tender PALPATION: Yes Soft to palpation OTHER: Mild suprapubic tenderness to palpation Back/Pelvis: COMMON NORMALS: thoracic and lumbar spine normal to inspection and no thoracic nor lumbar tenderness Extremity: COMMON NORMALS: normal to inspection Neuro: COMMON NORMALS: patient oriented x3 SENSORIUM/ORIENTATION: Yes alert OTHER: Right-sided weakness secondary to stroke Psych: COMMON NORMALS: mental status grossly normal and cooperative Skin: COMMON NORMALS: no rashes or lesions noted and no wounds GENERAL SKIN EXAM: no rashes or lesions noted Course Vital Signs: Vital signs: Vital Signs Temperature 98.4 F 06/02/22 13:39 Pulse Rate 89 06/02/22 13:39 Respiratory Rate 16 06/02/22 13:39 Blood Pressure 104/66 06/02/22 13:39 Pulse Oximetry 95 06/02/22 13:39 Oxygen Delivery Me thod 06/02/22 13:39 MDM - Male Medical Decision Making Patient comes in with urinary retention. States that since leaving the hospital after his stroke his has been straight cathing him for urine. States that the new catheters they received do not work as well and they have been unable to pass the catheter for the past few hours. No other concerns at this time. On physical exam he does have some suprapubic tenderness to palpation. We will place a Hurst catheter, check urine and reassess. On reassessment I talked to the patient about the test results. He is tolerating the Hurst without complication. We will place him on Cipro for likely urinary tract infection and discharged with precautions return for worsening or changing symptoms. Lab Data Laboratory Results Urine Color Yellow (Yellow) 06/02/22 14:23 Urine Appearance Clear (CLEAR) 06/02/22 14:23 Urine pH 6 (5-7) 06/02/22 14:23 Ur Specific [place] 1.010 (1.005-1.030) 06/02/22 14:23 Urine Protein Neg (Negative) 06/02/22 14:23 Urine Glucose (UA) Norm (Normal) 06/02/22 14:23 Urine Ketones Negative (Negative) 06/02/22 14:23 Urine Blood 3+ (Negative) H 06/02/22 14:23 Urine Nitrate Positive (Negative) H 06/02/22 14:23 Urine Bilirubin Neg (Negative) 06/02/22 14:23 Urine Urobilinogen Norm mg/dL (Negative) 06/02/22 14:23 Ur Leukocyte Esterase Trace (Negative) H 06/02/22 14:23 Urine RBC 0-4 /hpf (0-2) H 06/02/22 14:23 Urine WBC 15-25 /hpf (0-5) H 06/02/22 14:23 Ur Squamous Epith Cells None /hpf (0-5) 06/02/22 14:23 Amorphous Sediment Not Reportable 06/02/22 14:23 Urine Bacteria 4+ /hpf (NONE) H 06/02/22 14:23 Discharge Plan Discharge Patient Disposition: Home Clinical Impression: H/O urinary retention, Urinary tract infection Condition: Stable Prescriptions: New Cipro 250 mg tablet 250 mg PO BID Qty: 10 0RF No Action pantoprazole 40 mg tablet,delayed release (DR/EC) 40 mg PO DAILY lorazepam 0.5 mg tablet 0.5 mg PO DAILY PRN (Reason: Insomnia) hydrochlorothiazide 12.5 mg tablet 12.5 mg PO .COMPLEX PRN (Reason: edema) Qty: 180 2RF Rx Instructions: 12.5 mg PO Take 1 to 2 tab as needs for leg swelling PRN; diltiazem HCl 300 mg capsule,extended release 24 hr 300 mg PO DAILY Qty: 90 2RF losartan 100 mg tablet 100 mg PO DAILY Qty: 90 0RF fluticasone propionate 50 mcg/actuation spray,suspension 1 spray intranasal DAILY PRN Rx Instructions: administer into each nostril aspirin 325 mg tablet 325 mg PO DAILY hydrochlorothiazide 25 mg tablet 25 mg PO DAILY ferrous sulfate 325 mg (65 mg iron) tablet PO levofloxacin 500 mg tablet 500 mg PO DAILY Qty: 7 0RF promethazine-DM 6.25-15 mg/5 mL syrup 5 ml PO Q6H PRN (Reason: cough) Qty: 473 0RF coude urethral cath 16 Fr See Rx Instructions .ROUTE DIRECTED Qty: 50 3RF Rx Instructions: as directed as directed; Xarelto 20 mg tablet 20 mg PO DAILY Qty: 90 1RF Rx Instructions: must administer with evening meal gabapentin 300 mg capsule 300 mg PO TID Qty: 90 0RF levetiracetam [Keppra] 500 mg tablet 500 mg PO BID Qty: 60 0RF Discharge Orders: Discharge ED (Routine); Ordered 06/02/22 Ordered By: Triston Luna Referrals: Sammy Cai DO [Primary Care Provider] - Coding Level of Care Code ED Spinner Cap Frame for Chg Fwd Exam Comprehensive
[2022-06-02 15:15] LABS: Add Urine Microscopic? YES; Bilirubin Urine Neg (Negative); Blood Urine 3+ (Negative); Glucose Urine UA Norm (Normal); Ketones Urine Negative (Negative); Leukocyte Esterase Urine Trace (Negative); Nitrate Urine Positive (Negative); Protein Urine Neg (Negative); Urine Appearance Clear (CLEAR); Urine Color Yellow (Yellow); Urobilinogen Urine Norm (Negative); pH Urine 6 (5-7)
[2022-06-02 15:16] LABS: Add Urine Culture? Yes; Bacteria Urine 4+ /hpf; RBC Urine 0-4 /hpf (0-2); WBC Urine 15-25 /hpf (0-5)
[2022-06-02 16:19] VITALS: BP 124/79; PULSE 89; RESP 21; O2SAT 95
== END 2022-06-02 16:21 | disposition home or self-care (01) ==
PROVIDERS: Emergency Provider Emergency Medicine; PCP Family Medicine
DX: N39.0 Urinary tract infection, site not specified (principal); Z79.82 Long term (current) use of aspirin; Z86.73 Personal history of transient ischemic attack (TIA), and cerebral infarction without residual deficits; E78.5 Hyperlipidemia, unspecified; I10 Essential (primary) hypertension; Z87.891 Personal history of nicotine dependence
CPT/HCPCS: 51702; 81001; 87077; 87086; 87186; 99283

== ENCOUNTER → 2022-06-28 12:35 | Outpatient (BNVA) | payer MEDICARE, OTHER, SELFPAY | PROVIDERS: PCP Family Medicine; Visit Provider Family Medicine | DX: N13.9 Obstructive and reflux uropathy, unspecified (principal); Z46.6 Encounter for fitting and adjustment of urinary device | CPT/HCPCS: 81000 ==

== ENCOUNTER → 2022-07-16 09:46 | Outpatient (BNVA) | payer MEDICARE, OTHER, SELFPAY | PROVIDERS: PCP Family Medicine; Visit Provider Nurse Practitioner Family | DX: R33.9 Retention of urine, unspecified (principal); R82.81 Pyuria | CPT/HCPCS: 51798; 81003; 87077; 87086; 87186; 99203 ==

== ENCOUNTER 2022-07-30 14:28 | Emergency (ER) | payer MEDICARE, OTHER, SELFPAY ==
[2022-07-30] VITALS (9 sets, daily range): BP systolic 137–151; BP diastolic 75–89; PULSE 52–72; RESP 6–19; O2SAT 95–97
--- NOTE | 2022-07-30 14:52 | CT_ITS ---
WS: [id number] CT HEAD NONCONTRAST HISTORY: TIA/CVA symptoms TECHNIQUE: Contiguous axial imaging performed through the brain in 2.5 mm imaging. Bone and soft tiss ue windows. Sagittal and coronal reformats reviewed. All CT scans at [facility] use at least one of these dose optimization techniques: automated exposure control; mA and/or kV adjustment per pa tient size (includes targeted exams where dose is matched to clinical indication); or iterative recon struction. DLP: 1048.22 mGy.cm COMPARISON: 04/30/2022 No acute intracranial hemorrhage, midline shift or mass effect. Mild atrophy and small vessel ischemic disease. Remote infarct LEFT bustillos radiata at the site of the prior hemorrhagic infarct. Remote lacunar infarct RIGHT frontal periventricular white matter. Ventricles: Mild ventriculomegaly. Extensive calcification of the distal carotid arteries. Paranasal sinuses: Extensive mucoperiosteal thickening throughout the ethmoid air cells and extending into the frontal ethmoid recesses. Mastoid air cells: Well pneumatized. Calvarium and scalp: Skull is intact with no soft tissue edema or swelling. CT/CT head wo con* [id number] IMPRESSION: 1. No acute intracranial hemorrhage or edema. 2. Remote infarct in the LEFT bustillos radiata and in the RIGHT frontal perivent ricular white matter. 3. Mild ventriculomegaly.
--- NOTE | 2022-07-30 14:54 | ECG_ITS ---
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 Measurements Intervals [place] Rate: 60 P: 14 NH: 180 QRS: -20 QRSD: 99 T: -40 QT: 401 QTc: 403 Interpretive Statements SINUS RHYTHM WITH OCCASIONAL SUPRAVENTRICULAR PREMATURE COMPLEXES NONSPECIFIC T-WAVE ABNORMALITY Compared to ECG 04/30/2022 08:30:47 T-wave abnormality now present Myocardial infarct finding no longer present Electronically Signed On 07-30-2022 22:52:32 CDT by iMlka Briscoe M.D. [id number] f
--- NOTE | 2022-07-30 14:54 | ECG_ITS ---
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 Measurements Intervals [place] Rate: 60 P: 14 NE: 180 QRS: -20 QRSD: 99 T: -40 QT: 401 QTc: 403 Interpretive Statements SINUS RHYTHM WITH OCCASIONAL SUPRAVENTRICULAR PREMATURE COMPLEXES NONSPECIFIC T-WAVE ABNORMALITY Compared to ECG 04/30/2022 08:30:47 T-wave abnormality now present Myocardial infarct finding no longer present Electronically Signed On 07-30-2022 22:52:43 CDT by Milka Briscoe M.D. [id number] f
[2022-07-30 15:45] LABS: Basophils % 0.7 %; Eosinophils # 0.4 10^3/uL (0.0-0.8); Eosinophils % 8.1 %; Hematocrit 38.4 % (42.0-52.0); Hemoglobin 12.8 g/dL (11.7-16.6); Lymphocytes # 0.7 10^3/uL (0.8-4.8); Lymphocytes % 16.9 %; Mean Corpuscular HGB Conc 33.3 g/dL (30.0-36.0); Mean Corpuscular Hemoglobin 32.6 pg (28.0-34.0); Mean Corpuscular Volume 97.7 fl (80-94); Mean Platelet Volume 10.2 fL (7.4-10.4); Monocytes # 0.5 10^3/uL (0.2-0.9); Monocytes % 11.5 %; Neutrophils # 2.71 10^3/uL (1.8-7.7); Neutrophils % 62.6 %; Nucleated Red Blood Cells % 0 %; Platelet Count 165 10^3/cmm (130-400); Red Blood Count 3.93 10^6/uL (4.1-5.3); Red Cell Distribution Width 14.6 % (12.1-15.1); White Blood Count 4.3 10^3/uL (4.0-10.0)
--- NOTE | 2022-07-30 15:48 | ED_ITS ---
HPI - Neuro Symptoms/Deficit General: Chief Complaint: Neuro Symptoms/Deficit Stated Complaint: Previous stroke, losing speech and coordination Time Seen by Provider: 07/30/22 14:51 Source: patient Mode of arrival: ambulatory History of Present Illness: 81-year-old male presents emergency room concerned about a stroke. Prior to arrival patient a 30-minute episode where he was poorly responsive resolved spontaneously. He has a known history of previous stroke in March 2022 and he has some right-sided residual deficit from that. He is completely back to his normal baseline. He had no seizure-like activity has no recollection of the events he has not had any fever sweats or chills. Onset (ago): hour(s) Timing confirmed by: family member History of same: Yes Relieving factors: time Exacerbating factors: none Context: sudden onset Associated symptoms: Deny chest pain, cough, diaphoresis, fevers/chills, headache(s), anorexia, malaise, nausea, seizures, short of breath, syncope, tingling, vertigo, vomiting or weakness Treatments Prior to Arrival: none Review of Systems Const: Denies: fever(s), chills, fatigue, malaise or diaphoresis ENMT: Denies: throat pain, ear or mastoid pain, nasal discharge or nasal congestion Card: Denies: chest pain, palpitations, edema, syncope or dyspnea on exertion Resp: Denies: dyspnea, productive cough or non-productive cough GI: Denies: abdominal pain, nausea or vomiting : Denies: flank pain, difficulty urinating, dysuria, urinary frequency or urinary urgency Skin/Breast: Denies: rash or pruritus Neuro: Denies: headache(s) or vertigo PFS ED PFSH: Medical History Aortic regurgitation Arteriosclerosis Ascending aorta dilatation CVA (cerebral vascular accident) CVA in 2014 Dyslipidemia Essential hypertension Iron deficiency anemia Osteoarthritis of right knee Urinary retention Surgical History History of hernia surgery History of resection of small bowel Family History Mother , at age 90 Healthy adult Father , at age 62 Cancer Lung Other CAD (coronary artery disease) Hyperlipidemia Hypertension Denies family history of Diabetes Clotting disorder Dementia Psychiatric illness Chronic kidney disease (CKD) Suicide Anesthesia complication Bleeding disorder Family history of premature coronary artery disease Lung disease Stroke Social History Smoking and tobacco status: former smoker Second hand smoke exposure: No Alcohol intake: never Adopted: No Marital status: Current occupational status: retired History of recent travel: No NIH stroke score NIHSS: Level Of Consciousness - 1a: 0 Level Of Consciousness Questions - 1b: Both Correct Level Of Consciousness Commands - 1c: Both Correct Best Gaze - 2: Normal Visual Kinsey - 3: No Visual Loss Facial Palsy - 4: Normal Motor Arm Right - 5: No Drift Motor Arm Left - 5: No Drift Motor Leg Right - 6: No Drift Motor Leg Left - 6: No Drift Limb Ataxia - 7: Present In One Limb (Right side previous stroke) Sensory - 8: Normal Best Language - 9: No Aphasia Dysarthia - 10: Normal Extinction And Inattention - 11: 0 Score: Total Score: 1 Physical Exam Const: COMMON NORMALS: no acute distress GENERAL APPEARANCE: cooperative and comfortable ORIENTATION/CONSCIOUSNESS: Yes awake, Yes oriented to person, Yes oriented to place and Yes oriented to time HENMT: COMMON NORMALS: normocephalic, atraumatic, hearing grossly normal bila terally, external ears normal, EAC's normal, TM's normal bilaterally, Normal nasal mucous membranes and turbinates present, moist oral mucous membranes and oropharynx normal HEAD & SCALP: normocephalic and atraumatic NOSE: Normal nasal mucous membranes and turbinates present EXTERNAL EAR: Yes external ears normal EXTERNAL AUDITORY CANAL: EAC's normal TYMPANIC MEMBRANE: TM's normal bilaterally Resp: COMMON NORMALS: normal respiratory effort, No retractions, No use of accessory muscles and clear to auscultation bilaterally AUSCULTATION: clear to auscultation bilaterally Cardio: COMMON NORMALS: regular rate, regular rhythm and No murmurs present (Cardio) RATE: regular rate RHYTHM: regular rhythm GI: COMMON NORMALS: Soft to palpation and No hepatosplenomegaly present AUSCULTATION: Yes normoactive bowel sounds PALPATION: Yes Soft to palpation, No Tenderness to palpation present (GI), No Guarding due to palpation present (GI) and Yes No hepatosplenomegaly present Extremity: COMMON NORMALS: normal to inspection, capillary refill normal, no clubbing, cyanosis or edema, no calf tenderness and no pedal edema Neuro: SENSORIUM/ORIENTATION: Yes oriented to person, Yes oriented to place and Yes oriented to time Skin: COMMON NORMALS: no rashes or lesions noted GENERAL SKIN EXAM: no rashes or lesions noted Course Vital Signs: Vital signs: Vital Signs Pulse Rate 53 L 07/30/22 18:00 Respiratory Rate 13 07/30/22 18:00 Blood Pressure 146/80 07/30/22 18:00 Pulse Oximetry 96 07/30/22 18:00 MDM - Neuro Symptoms/Deficit Medical Decision Making Previous episode was hemorrhagic. He is not on any medications now and recommend that he start on aspirin. We will not finding any symptoms at all at this point he is completely resolved. Scans were unremarkable we will have him follow-up with his primary care provider. Discussed with family questions answered. Medical Records I reviewed the patient's medical records. Lab Data I reviewed the patient's lab results. : 07/30/22 15:13 07/30/22 15:[address] 07/30/22 14:52 IMPRESSION: 1. No acute intracranial hemorrhage or edema. 2. Remote infarct in the LEFT bustillos radiata and in the RIGHT frontal periv entricular white matter. 3. Mild ventriculomegaly. Ankle X-Ray 07/30/22 15:55 IMPRESSION: No acute findings. Laboratory Results WBC 4.3 10^3/uL (4.0-10.0) 07/30/22 15:13 RBC 3.93 10^6/uL (4.1-5.3) L 07/30/22 15:13 Hgb 12.8 g/dL (11.7-16.6) 07/30/22 15:13 Hct 38.4 % (42.0-52.0) L 07/30/22 15:13 MCV 97.7 fl (80-94) H 07/30/22 15:13 MCH 32.6 pg (28.0-34.0) 07/30/22 15:13 MCHC 33.3 g/dL (30.0-36.0) 07/30/22 15:13 RDW 14.6 % (12.1-15.1) 07/30/22 15:13 Plt Count 165 10^3/cmm (130-400) 07/30/22 15:13 MPV 10.2 fL (7.4-10.4) 07/30/22 15:13 Neut % (Auto) 62.6 % 07/30/22 15:13 Lymph % (Auto) 16.9 % 07/30/22 15:13 [place] % (Auto) 11.5 % 07/30/22 15:13 Eos % (Auto) 8.1 % 07/30/22 15:13 Baso % (Auto) 0.7 % 07/30/22 15:13 Neut # (Auto) 2.71 10^3/uL (1.8-7.7) 07/30/22 15:13 Lymph # (Auto) 0.7 10^3/uL (0.8-4.8) L 07/30/22 15:13 [place] # (Auto) 0.5 10^3/uL (0.2-0.9) 07/30/22 15:13 Eos # (Auto) 0.4 10^3/uL (0.0-0.8) 07/30/22 15:13 Baso # (Auto) 0.0 10^3/uL (0.0-0.1) 07/30/22 15:13 Nucleated RBC % (auto) 0 % 07/30/22 15:13 Nucleated RBCs # 0.0 /100WBC 07/30/22 15:13 Sodium 138 mmol/L (136-145) 07/30/22 15:13 Potassium 3.9 mmol/L (3.5-5.1) 07/30/22 15:13 Chloride 102 mmol/L (98-107) 07/30/22 15:13 Carbon Dioxide 27 mmol/L (22-29) 07/30/22 15:13 Anion Gap 12.9 (5-19) 07/30/22 15:13 BUN 9 mg/dL (8-23) 07/30/22 15:13 Creatinine 0.6 mg/dL (0.7-1.2) L 07/30/22 15:13 GFR Calculation Not Reportable 07/30/22 15:13 Glucose 132 mg/dL (65-115) H 07/30/22 15:13 Calculated Osmolality 287 mOsm/kg (285-295) 07/30/22 15:13 Calcium 9.4 mg/dL (8.5-10.5) 07/30/22 15:13 Total Bilirubin 1.0 mg/dL (0.15-1.2) 07/30/22 15:13 AST 17 U/L (0-40) 07/30/22 15:13 ALT 12 U/L (0-41) 07/30/22 15:13 Alkaline Phosphatase 122 U/L (40-130) 07/30/22 15:13 Total Protein 6.0 g/dL (6.6-8.7) L 07/30/22 15:13 Albumin 3.8 g/dL (3.5-5.2) 07/30/22 15:13 Globulin 2.2 g/dL (1.3-4.6) 07/30/22 15:13 Discharge Plan Discharge Patient Disposition: Home Clinical Impression: History of cerebrovascular accident, Right sided weakness Condition: Stable Prescriptions: New aspirin 81 mg tablet,delayed release (DR/EC) 81 mg PO DAILY Qty: 30 0RF No Action pantoprazole 40 mg tablet,delayed release (DR/EC) 40 mg PO DAILY fluticasone propionate 50 mcg/actuation spray,suspension 1 spray intranasal DAILY PRN (Reason: Nasal Congestion) Rx Instructions: administer into each nostril (DME) AFO brace See Rx Instructions .Route .MEDSUPPLY Qty: 1 0RF Rx Instructions: As directed paroxetine HCl 20 mg tablet 20 mg PO DAILY Qty: 30 5RF Rx Instructions: for mood promethazine-DM 6.25-15 mg/5 mL syrup 5 ml PO Q6H PRN (Reason: cough) Qty: 473 0RF coude urethral cath 14 Fr See Rx Instructions .ROUTE DIRECTED Qty: 50 3RF Rx Instructions: as directed as directed; metoprolol tartrate 25 mg tablet 25 mg PO BID Qty: 180 0RF lorazepam 0.5 mg tablet 0.5 mg PO DAILY PRN (Reason: Insomnia) Qty: 30 5RF sennosides-docusate sodium 8.6-50 mg tablet 1 tab-cap PO DAILY PRN (Reason: constipation) Qty: 30 1RF gabapentin 300 mg capsule 300 mg PO TID Qty: 90 5RF levetiracetam [Keppra] 500 mg tablet 500 mg PO BID Qty: 60 5RF oxycodone 5 mg tablet 5 mg PO BID PRN (Reason: pain) 30 Days Qty: 60 0RF tamsulosin 0.4 mg capsule 0.4 mg PO BEDTIME Tylenol 325 mg Tablet 650 mg PO DAILY PRN (Reason: Pain) Discharge Orders: Discharge ED (Routine); Ordered 07/30/22 Ordered By: Isaiah Perez Referrals: Sammy Cai, DO [Primary Care Provider] - Discharge Diet: Advance as tolerated Discharge Activity: Resume usual activity Patient Instructions: Opioid Safety, Pain Management Activity Restrictions/Additional Instructions: Case management make arrangements for you to have a 6 carotid duplex and echocardiogram. Also make arranges for neurology follow-up Coding Level of Care Code ED Media Professional for Naun Landers
--- NOTE | 2022-07-30 15:55 | XRR_ITS ---
PROCEDURE INFORMATION: Exam: XR Right Ankle Exam date and time: 07/30/2022 4:11 PM Age: 81 years old Clinical indication: Pain and injury or trauma; Other: Twisted ankle; Sprain or strain; Right TECHNIQUE: Imaging protocol: Radiologic exam of the Right ankle. Views: 3 or more views. COMPARISON: CR XR ankle RT min 3V* [id number] 07/08/2019 12:49 PM FINDINGS: Bones/joints: Osseous structures are intact. Negative for fracture. Joint spaces are preserved. Soft tissues: Normal. XR/XR ankle RT min 3V* [id number] IMPRESSION: No acute findings.
[2022-07-30 16:00] LABS: Alanine Aminotransferase 12 U/L (0-41); Albumin Level 3.8 g/dL (3.5-5.2); Alkaline Phosphatase 122 U/L (40-130); Anion Gap 12.9 (5-19); Aspartate Amino Transferase 17 U/L (0-40); Blood Urea Nitrogen 9 mg/dL (8-23); Calcium 9.4 mg/dL (8.5-10.5); Carbon Dioxide 27 mmol/L (22-29); Chloride 102 mmol/L (98-107); Globulin 2.2 g/dL (1.3-4.6); Glucose 132 mg/dL (65-115); Osmolality Calculated 287 mOsm/kg (285-295); Potassium 3.9 mmol/L (3.5-5.1); Sodium 138 mmol/L (136-145)
--- NOTE | 2022-08-02 09:25 | DCPLANNER ---
Addendum entered by Jumana Abbott 12/24/22 08:06: Patient had a echo scheduled - patient did attend appointment Patient had a carotid duplex scheduled - patient did not attend appointment Addendum entered by Jumana Abbott 10/05/22 10:18: Patient had an appointment scheduled with neurology - this appointment was cancelled - patient stated that he did not need the appointment anymore. Addendum entered by Jumana Abbott 10/05/22 09:53: Patient has an outpatient echo scheduled for Saturday, October 15, 2022 at 11:00. Centralized scheduling will call patient with appointment information. Original Note: administrative support manager had message to schedule an outpatient echocardiogram and carotid duplex for patient. administrative support manager faxed signed orders to centralized scheduling, who will call patient with appointment information. administrative support manager also faxed notification to patients primary care physician, to inform the physician that ER physician ordered some out patient testing. administrative support manager also also had message to schedule a follow up appointment for patient with neurology. administrative support manager sent patients information to the front office staff at neurology. Patients information will be printed and reviewed. Clinic will call patient with appointment information.
== END 2022-07-30 18:16 | disposition home or self-care (01) ==
PROVIDERS: Emergency Provider Family Medicine; PCP Family Medicine
DX: I69.351 Hemiplegia and hemiparesis following cerebral infarction affecting right dominant side (principal); Z87.891 Personal history of nicotine dependence; E78.5 Hyperlipidemia, unspecified; I10 Essential (primary) hypertension
CPT/HCPCS: 70450; 73610; 80053; 85025; 93005; 99285

== ENCOUNTER 2022-08-02 09:41 | Outpatient (RCR) | payer MEDICARE, OTHER, SELFPAY | END 2022-08-06 23:59 | disposition home or self-care (01) | LOC: SPT 09:41 | PROVIDERS: PCP Family Medicine; Visit Provider Family Medicine | DX: I63.9 Cerebral infarction, unspecified (principal); R53.1 Weakness | CPT/HCPCS: 97110; 97162 ==

== ENCOUNTER 2022-08-07 06:00 | Outpatient (RCR) | payer MEDICARE, OTHER, SELFPAY | END 2022-09-05 23:59 | disposition home or self-care (01) | LOC: SOT 06:00 | PROVIDERS: PCP Family Medicine; Visit Provider Family Medicine | DX: R53.1 Weakness (principal) | CPT/HCPCS: 97110; 97140; 97166 ==

== ENCOUNTER 2022-08-07 06:00 | Outpatient (RCR) | payer MEDICARE, OTHER, SELFPAY | END 2022-09-05 23:59 | disposition home or self-care (01) | LOC: SPT 06:00 | PROVIDERS: PCP Family Medicine; Visit Provider Family Medicine | DX: M17.11 Unilateral primary osteoarthritis, right knee (principal); I63.9 Cerebral infarction, unspecified; D50.9 Iron deficiency anemia, unspecified; R53.1 Weakness | CPT/HCPCS: 97110 ==

== ENCOUNTER 2022-09-06 06:00 | Outpatient (RCR) | payer MEDICARE, OTHER, SELFPAY | END 2022-10-06 23:59 | disposition home or self-care (01) | LOC: SOT 06:00 | PROVIDERS: PCP Family Medicine; Visit Provider Family Medicine | DX: R53.1 Weakness (principal) | CPT/HCPCS: 97110; 97140 ==

== ENCOUNTER 2022-09-06 06:00 | Outpatient (RCR) | payer MEDICARE, OTHER, SELFPAY | END 2022-10-06 23:59 | disposition home or self-care (01) | LOC: SPT 06:00 | PROVIDERS: PCP Family Medicine; Visit Provider Family Medicine | DX: I63.9 Cerebral infarction, unspecified (principal); R53.1 Weakness | CPT/HCPCS: 97110; 97530 ==

== ENCOUNTER → 2022-09-12 12:09 | Outpatient (BNVA) | payer MEDICARE, OTHER, SELFPAY | PROVIDERS: PCP Family Medicine; Visit Provider Family Medicine | DX: R33.9 Retention of urine, unspecified (principal); R53.1 Weakness; R82.81 Pyuria | CPT/HCPCS: 81000; 87077; 87086; 87184 ==

== ENCOUNTER 2022-10-07 06:00 | Outpatient (RCR) | payer MEDICARE, OTHER, SELFPAY | END 2022-11-06 23:59 | disposition home or self-care (01) | LOC: SPT 06:00 | PROVIDERS: PCP Family Medicine; Visit Provider Family Medicine | DX: M72.2 Plantar fascial fibromatosis (principal); M17.11 Unilateral primary osteoarthritis, right knee; M79.89 Other specified soft tissue disorders | CPT/HCPCS: 97110; 97116; 97530 ==

== ENCOUNTER 2022-10-07 06:00 | Outpatient (RCR) | payer MEDICARE, OTHER, SELFPAY | END 2022-11-06 23:59 | disposition home or self-care (01) | LOC: SOT 06:00 | PROVIDERS: PCP Family Medicine; Visit Provider Family Medicine | DX: R53.1 Weakness (principal); I63.9 Cerebral infarction, unspecified | CPT/HCPCS: 97022; 97110; 97140 ==

== ENCOUNTER 2022-10-15 10:24 | Outpatient (CLI) | payer MEDICARE, OTHER, SELFPAY ==
--- NOTE | 2022-10-15 10:39 | USCV_ITS ---
Chico Whatley Age: 81 Gender: M : 1940 Exam Date: 10/15/2022 11:24 Ordering Phys: Isaiah Perez DO Technologist: Exam Location: [facility] – [place], [place] Indication: hx of cva BP: 134 / 73 HR: 63 Rhythm: Sinus Technical Quality: Adequate MEASUREMENTS (Male / Female) Normal Values 2D ECHO LV Diastolic Diameter PLAX 4.3 cm 4.2 - 5.9 / 3.9 - 5.3 cm LV Systolic Diameter PLAX 3.1 cm IVS Diastolic Thickness 1.1 cm 0.6 - 1.0 / 0.6 - 0.9 cm IVS Systolic Thickness 1.3 cm LVPW Diastolic Thickness 1.5 cm 0.6 - 1.0 / 0.6 - 0.9 cm LVPW Systolic Thickness 1.5 cm LVOT Diameter 2.0 cm LV Ejection Fraction 2D Teich 52.9 % LA Diameter 4.0 cm Aorta at Sinotubular Diameter 3.2 cm M-MODE Aortic Annulus Diameter 2.7 cm LA Ao Ratio MM 1.2 DOPPLER AV Peak Velocity 260.0 cm/s LVOT Peak Velocity 96.0 cm/s AV Area Cont Eq vti 1.1 cm squared AV Area Cont Eq pk 1.2 cm squared MV Area PHT 5.0 cm squared Mitral E to A Ratio 0.4 MV E' Velocity 45.0 cm/s Mitral E to LV E' Septal Ratio 10.2 TR Peak Velocity 283.3 cm/s TR Peak Gradient 32.1 mmHg TV Peak E Velocity 72.0 cm/s Right Atrial Pressure 3.0 mmHg Pulmonary Artery Systolic Pressu 35.1 mmHg RV Acceleration Time 0.2 s Medications Complications Proc. Components FINDINGS Left Ventricle Left ventricle is normal in size. LV systolic function is normal with EF 55 to 60%. No regional wall motion abnormalities are seen. Grade 1 diastolic dysfunction Right Ventricle Normal in size and function Right Atrium Not well visualized Left Atrium Not well visualized LA Appendage Not visualized IA Septum Normal Mitral Valve Mitral valve is normal structurally. Mild mitral regurgitation. Aortic Valve Aortic valve is thickened and calcified. Mild aortic regurgitation. Moderate aortic stenosis with aortic valve area of 1.07 cm squared with mean gradient across aortic valve 14.4 mmHg. Tricuspid Valve Mild tricuspid regurgitation. RVSP is 35 to 40 mmHg. This is consistent with mild pulmonary hypertension. Pulmonic Valve Not well-visualized Pericardium Normal Aorta Aortic root is mildly dilated. CONCLUSIONS Left ventricle is normal in size. LV systolic function is normal with EF 55 to 60%. Grade 1 diastolic dysfunction Mild mitral regurgitation Aortic valve is thickened and calcified. Mild aortic regurgitation Moderate aortic stenosis with aortic valve area of 1.07 cm squared with mean gradient across aortic valve of 14.4 mmHg. Mild tricuspid regurgitation. Mild pulmonary hypertension Aortic root is mildly dilated Compared to prior echocardiogram from 2019, patient now has moderate aortic stenosis. Uriel Llanos MD (Electronically Signed) Final Date: 15 October 2022 18:33 S
== END 2022-10-15 10:25 | disposition home or self-care (01) ==
LOC: RAD 10:32
PROVIDERS: PCP Family Medicine; Visit Provider Family Medicine
DX: G45.9 Transient cerebral ischemic attack, unspecified (principal)
CPT/HCPCS: 93306

== ENCOUNTER → 2022-10-17 12:42 | Outpatient (BNVA) | payer MEDICARE, OTHER, SELFPAY | PROVIDERS: PCP Family Medicine; Visit Provider Urology | DX: R33.9 Retention of urine, unspecified (principal); N40.1 Benign prostatic hyperplasia with lower urinary tract symptoms; R82.81 Pyuria | CPT/HCPCS: 51741; 51798; 81003; 87077; 87086; 87186; 99213 ==

== ENCOUNTER 2022-11-07 06:00 | Outpatient (RCR) | payer MEDICARE, OTHER, SELFPAY | END 2022-12-04 23:59 | disposition home or self-care (01) | LOC: SPT 06:00 | PROVIDERS: PCP Family Medicine; Visit Provider Family Medicine | DX: I63.9 Cerebral infarction, unspecified (principal); R53.1 Weakness | CPT/HCPCS: 97110; 97116 ==

== ENCOUNTER 2022-11-07 06:00 | Outpatient (RCR) | payer MEDICARE, OTHER, SELFPAY | END 2022-12-04 23:59 | disposition home or self-care (01) | LOC: SOT 06:00 | PROVIDERS: PCP Family Medicine; Visit Provider Family Medicine | DX: I63.9 Cerebral infarction, unspecified (principal); R53.1 Weakness | CPT/HCPCS: 97110; 97140 ==

== ENCOUNTER 2022-12-05 06:00 | Outpatient (RCR) | payer MEDICARE, OTHER, SELFPAY | END 2023-01-04 23:59 | disposition home or self-care (01) | LOC: SPT 06:00 | PROVIDERS: PCP Family Medicine; Visit Provider Family Medicine | DX: M72.2 Plantar fascial fibromatosis (principal); M17.11 Unilateral primary osteoarthritis, right knee; M79.89 Other specified soft tissue disorders | CPT/HCPCS: 97110; 97116 ==

== ENCOUNTER 2022-12-05 06:00 | Outpatient (RCR) | payer MEDICARE, OTHER, SELFPAY | END 2023-01-04 23:59 | disposition home or self-care (01) | LOC: SOT 06:00 | PROVIDERS: PCP Family Medicine; Visit Provider Family Medicine | DX: I63.9 Cerebral infarction, unspecified (principal); R53.1 Weakness | CPT/HCPCS: 97110; 97140 ==

== ENCOUNTER 2023-01-05 01:00 | Outpatient (RCR) | payer MEDICARE, OTHER, SELFPAY | END 2023-02-03 23:59 | disposition home or self-care (01) | LOC: SOT 01:00 | PROVIDERS: PCP Family Medicine; Visit Provider Family Medicine | DX: I63.9 Cerebral infarction, unspecified (principal); R53.1 Weakness | CPT/HCPCS: 97110; 97140 ==

== ENCOUNTER → 2023-01-16 13:19 | Outpatient (BNVA) | payer MEDICARE, OTHER, SELFPAY | PROVIDERS: PCP Family Medicine; Visit Provider Urology | DX: N40.1 Benign prostatic hyperplasia with lower urinary tract symptoms (principal); N39.0 Urinary tract infection, site not specified; N13.8 Other obstructive and reflux uropathy | CPT/HCPCS: 51798; 87077; 87086; 87186; 99213 ==

== ENCOUNTER → 2023-02-05 14:05 | Outpatient (BNVA) | payer MEDICARE, OTHER, SELFPAY | PROVIDERS: PCP Family Medicine; Visit Provider Family Medicine | DX: M25.551 Pain in right hip (principal); S80.11XA Contusion of right lower leg, initial encounter; W19.XXXA Unspecified fall, initial encounter | CPT/HCPCS: 73502 ==

== ENCOUNTER → 2023-07-05 09:12 | Outpatient (BNVA) | payer MEDICARE, OTHER, SELFPAY | PROVIDERS: PCP Family Medicine; Visit Provider Podiatrist Foot & Ankle Surgery | DX: B35.1 Tinea unguium (principal); I73.9 Peripheral vascular disease, unspecified; M21.371 Foot drop, right foot | CPT/HCPCS: 11721; 99203 ==

== ENCOUNTER 2023-08-06 10:00 | Emergency (ER) | payer MEDICARE, OTHER, SELFPAY ==
--- NOTE | 2023-08-06 10:06 | XRR_ITS ---
PROCEDURE INFORMATION: Exam: XR Chest Exam date and time: 08/06/2023 10:32 AM Age: 82 years old Clinical indication: Cough and dyspnea; Additional info: Dyspnea/cough TECHNIQUE: Imaging protocol: Radiologic exam of the chest. Views: 1 view. COMPARISON: CR XR chest 1V portable [id number] 04/30/2022 8:34 AM FINDINGS: Lungs: There is no focal consolidation. There is minimal peripheral reticulonodular opacity in the lateral right mid lung and lateral left lung base. Pleural spaces: There is no pleural effusion or pneumothorax. Heart/Mediastinum: Cardiomediastinal contours are unremarkable. Bones/joints: Bones are unremarkable. XR/XR chest 1V portable [id number] IMPRESSION: Minimal reticulonodular opacity in the lateral right mid lung and left lung base. Possible scarring or atelectasis. Mild acute bronchiolitis cannot be excluded. There is no pulmonary consolidation.
--- NOTE | 2023-08-06 10:06 | ECG_ITS ---
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 Measurements Intervals [place] Rate: 70 P: 5 OK: 202 QRS: -22 QRSD: 106 T: -21 QT: 370 QTc: 400 Interpretive Statements SINUS RHYTHM WITH SINUS ARRHYTHMIA INFERIOR MYOCARDIAL INFARCTION , OF INDETERMINATE AGE [40+ ms Q WAVE AND/OR ST/T ABNORMALITY IN II/aVF] Compared to ECG 07/30/2022 14:54:41 Myocardial infarct finding now present T-wave abnormality no longer present Electronically Signed On 08-06-2023 12:20:39 CDT by Milka Briscoe M.D. [id number]
[2023-08-06 10:21] VITALS: BP 120/69; PULSE 81; RESP 18; TEMP 36.4; O2SAT 98; BMI 24.3
[2023-08-06 10:50] LABS: Basophils % 0.6 %; Eosinophils # 0.3 10^3/uL (0.0-0.8); Eosinophils % 5.4 %; Lymphocytes # 0.8 10^3/uL (0.8-4.8); Lymphocytes % 12.7 %; Mean Corpuscular HGB Conc 33.5 g/dL (30-55); Mean Corpuscular Hemoglobin 33.2 pg (27-33); Mean Platelet Volume 9.2 fL (7.4-10.4); Monocytes # 0.5 10^3/uL (0.2-0.9); Monocytes % 7.6 %; Neutrophils # 4.61 10^3/uL (1.8-7.7); Neutrophils % 73.5 %; Nucleated Red Blood Cells % 0 %; Platelet Count 216 10^3/cmm (157-399); Red Blood Count 4.04 10^6/uL (3.85-5.65); Red Cell Distribution Width 12.5 % (12.1-15.1); White Blood Count 6.28 10^3/uL (3.29-11.43)
[2023-08-06 11:13] LABS: Alanine Aminotransferase 11 U/L (0-41); Albumin Level 3.7 g/dL (3.5-5.2); Alkaline Phosphatase 164 U/L (40-130); Anion Gap 13.4 (5-19); Aspartate Amino Transferase 15 U/L (0-40); Blood Urea Nitrogen 19 mg/dL (8-23); Calcium 9.5 mg/dL (8.5-10.5); Carbon Dioxide 26 mmol/L (22-29); Chloride 102 mmol/L (98-107); Glucose 111 mg/dL (65-115); Osmolality Calculated 287 mOsm/kg (285-295); Potassium 4.4 mmol/L (3.5-5.1); Sodium 137 mmol/L (136-145); Total Bilirubin 1.3 mg/dL (0.15-1.2); Total Protein 6.7 g/dL (6.6-8.7)
--- NOTE | 2023-08-06 11:19 | W.ED.HA ---
HPI - Headache General: Chief Complaint: Headache Stated Complaint: possible ams, head pain Time Seen by Provider: 08/06/23 10:01 Source: patient Mode of arrival: wheelchair History of Present Illness: 82-year-old female presents to the emergency room with complaints of headache. He has pain in the base of the right neck radiating up into the occipital area no vision changes no difficulty speech or swallowing. He has previously had a stroke with significant right-sided deficits he is unable to walk unable to use his right arm as a custom molded armrest on his wheelchair for this. No change in vision he recently had upper respiratory infection has not been having any fever sweats chills or cough. No recent trauma. MD elicited complaint: headache and other (Neck pain) Onset (ago): day(s) Location: right and occipital Severity: mild Quality & Timing: sharp Exacerbating factors: none Relieving factors: nothing Associated symptoms: Deny chest pain, confusion, cough, diaphoresis, eye pain, eye redness, fever(s), lightheadedness, loss of vision, malaise, nausea, neck stiffness, numbness, paresthesias, photophobia, pre-syncope, rash, seizures, short of breath, sound sensitivity, syncope, vomiting or weakness Treatments prior to arrival: none Review of Systems Const: Denies: fever(s), chills, malaise or diaphoresis ENMT: Denies: throat pain Card: Denies: chest pain, lightheadedness, syncope or pre-syncope Resp: Denies: dyspnea GI: Denies: abdominal pain, nausea or vomiting : Denies: dysuria, urinary frequency or urinary urgency Musc: Reports: neck pain; Denies: back pain Skin/Breast: Denies: rash Neuro: Denies: confusion PFSH ED PFSH: Medical History Aortic regurgitation Arteriosclerosis Ascending aorta dilatation CVA (cerebral vascular accident) CVA in 2014 Dyslipidemia Essential hypertension Iron deficiency anemia Osteoarthritis of right knee Urinary retention Surgical History History of hernia surgery History of resection of small bowel Family History Mother , at age 90 Healthy adult Father , at age 62 Cancer Lung Other CAD (coronary artery disease) Hyperlipidemia Hypertension Denies family history of Diabetes Clotting disorder Dementia Psychiatric illness Chronic kidney disease (CKD) Suicide Anesthesia complication Bleeding disorder Family history of premature coronary artery disease Lung disease Stroke Social History Smoking and tobacco/nicotine status: former use of tobacco/nicotine Second hand smoke exposure: No Alcohol intake: current Alcohol intake frequency: few times a month Substance/Drug Use: never Adopted: No Marital status: Current occupational status: retired Physical Exam Const: GENERAL APPEARANCE: cooperative and comfortable ORIENTATION/CONSCIOUSNESS: Yes awake, Yes oriented to person, Yes oriented to place and Yes oriented to time HENMT: COMMON NORMALS: normocephalic, atraumatic and hearing grossly normal bilaterally HEAD & SCALP: normocephalic and atraumatic Eye: DIRECT OPHTHALMOSCOPY: No photophobia Resp: COMMON NORMALS: normal respiratory effort, No retractions, No use of accessory muscles and clear to auscultation bilaterally AUSCULTATION: clear to auscultation bilaterally Cardio: COMMON NORMALS: regular rate, regular rhythm and No murmurs present (Cardio) RATE: regular rate RHYTHM: regular rhythm GI: COMMON NORMALS: Soft to palpation and No hepatosplenomegaly present AUSCULTATION: Yes normoactive bowel sounds PALPATION: Yes Soft to palpation, No Tenderness to palpation present (GI), No Guarding due to palpation present (GI) and Yes No hepatosplenomegaly present Extremity: COMMON NORMALS: normal to inspection, capillary refill normal, no clubbing, cyanosis or edema, no calf tenderness and no pedal edema NARRATIVE EXTREMITY EXAM: Right arm and leg weakness Neuro: SENSORIUM/ORIENTATION: Yes oriented to person, Yes oriented to place and Yes oriented to time Skin: COMMON NORMALS: no rashes or lesions noted GENERAL SKIN EXAM: no rashes or lesions noted Course Vital Signs: Vital signs: Vital Signs Temperature 97.5 F L 08/06/23 10:21 Pulse Rate 118 H 08/06/23 11:30 Respiratory Rate 25 H 08/06/23 11:30 Blood Pressure 123/76 08/06/23 13:00 Pulse Oximetry 92 08/06/23 11:30 Oxygen Delivery Me thod Room Air 08/06/23 10:21 MDM - Headache Medical Decision Making No new deficits pain reproduced with movement and then neck and palpation along the right paraspinal muscles in the neck. Appears to be mostly musculoskeletal. Treat symptomatically follow-up primary care as needed Medical Records I reviewed the patient's medical records. Lab Data I reviewed the patient's lab results. 08/06/23 10:40 08/06/23 10:40 Radiology Impressions Chest X-Ray 08/06/23 10:06 IMPRESSION: Minimal reticulonodular opacity in the lateral right mid lung and left lung base. Possible scarring or atelectasis. Mild acute bronchiolitis cannot be excluded. There is no pulmonary consolidation. Laboratory Results WBC 6.28 10^3/uL (3.29-11.43) 08/06/23 10:40 RBC 4.04 10^6/uL (3.85-5.65) 08/06/23 10:40 Hgb 13.40 g/dL (11.27-16.99) 08/06/23 10:40 Hct 40.0 % (37-53) 08/06/23 10:40 MCV 99.0 fl (82-101) 08/06/23 10:40 MCH 33.2 pg (27-33) H 08/06/23 10:40 MCHC 33.5 g/dL (30-55) 08/06/23 10:40 RDW 12.5 % (12.1-15.1) 08/06/23 10:40 Plt Count 216 10^3/cmm (157-399) 08/06/23 10:40 MPV 9.2 fL (7.4-10.4) 08/06/23 10:40 Neut % (Auto) 73.5 % 08/06/23 10:40 Lymph % (Auto) 12.7 % 08/06/23 10:40 [place] % (Auto) 7.6 % 08/06/23 10:40 Eos % (Auto) 5.4 % 08/06/23 10:40 Baso % (Auto) 0.6 % 08/06/23 10:40 Neut # (Auto) 4.61 10^3/uL (1.8-7.7) 08/06/23 10:40 Lymph # (Auto) 0.8 10^3/uL (0.8-4.8) 08/06/23 10:40 [place] # (Auto) 0.5 10^3/uL (0.2-0.9) 08/06/23 10:40 Eos # (Auto) 0.3 10^3/uL (0.0-0.8) 08/06/23 10:40 Baso # (Auto) 0.0 10^3/uL (0.0-0.1) 08/06/23 10:40 Nucleated RBC % (auto) 0 % 08/06/23 10:40 Nucleated RBCs # 0.0 /100WBC 08/06/23 10:40 Sodium 137 mmol/L (136-145) 08/06/23 10:40 Potassium 4.4 mmol/L (3.5-5.1) 08/06/23 10:40 Chloride 102 mmol/L (98-107) 08/06/23 10:40 Carbon Dioxide 26 mmol/L (22-29) 08/06/23 10:40 Anion Gap 13.4 (5-19) 08/06/23 10:40 BUN 19 mg/dL (8-23) 08/06/23 10:40 Creatinine 0.7 mg/dL (0.7-1.2) 08/06/23 10:40 GFR Calculation Not Reportable 08/06/23 10:40 Glucose 111 mg/dL (65-115) 08/06/23 10:40 Calculated Osmolality 287 mOsm/kg (285-295) 08/06/23 10:40 Calcium 9.5 mg/dL (8.5-10.5) 08/06/23 10:40 Total Bilirubin 1.3 mg/dL (0.15-1.2) H 08/06/23 10:40 AST 15 U/L (0-40) 08/06/23 10:40 ALT 11 U/L (0-41) 08/06/23 10:40 Alkaline Phosphatase 164 U/L (40-130) H 08/06/23 10:40 Total Protein 6.7 g/dL (6.6-8.7) 08/06/23 10:40 Albumin 3.7 g/dL (3.5-5.2) 08/06/23 10:40 Globulin 3.0 g/dL (1.3-4.6) 08/06/23 10:40 All radiology interpretation(s) finalized by discharge Discharge Plan Discharge Patient Disposition: Home Clinical Impression: Cervicalgia Condition: Stable Prescriptions: New tizanidine 2 mg capsule 2 mg PO Q8H PRN (Reason: muscle spasticity) Qty: 20 0RF No Action ascorbic acid (vitamin C) 1,000 mg capsule 1 g PO BID guaifenesin [Mucinex] 600 mg tablet extended release 12hr 600 mg PO BID lorazepam 0.5 mg tablet 0.5 mg PO DAILY PRN (Reason: Insomnia) Qty: 30 5RF promethazine-DM 6.25-15 mg/5 mL syrup 5 ml PO Q6H PRN (Reason: cough) Qty: 473 0RF methenamine hippurate 1 gram tablet 1 g PO BID Qty: 60 12RF Rx Instructions: 1 pill twice a day with 1 g vitamin C each dose Start after completing Macrobid ondansetron 4 mg tablet,disintegrating 4 mg PO Q8H PRN (Reason: nausea and vomiting) Qty: 30 0RF methylphenidate HCl 5 mg tablet 5 mg PO TID PRN (Reason: mood/activity) 10 Days Qty: 30 0RF doxycycline monohydrate 100 mg capsule 100 mg PO BID Qty: 14 0RF coude urethral cath 14 Fr See Rx Instructions .ROUTE DIRECTED Qty: 50 3RF Rx Instructions: as directed as directed; oxycodone 5 mg tablet 5 mg PO BID PRN (Reason: pain) 30 Days Qty: 60 0RF metoprolol tartrate 25 mg tablet See Rx Instructions .ROUTE .COMPLEX Qty: 180 3RF Dose Instruction: TAKE 1 TABLET BY MOUTH TWICE DAILY Rx Instructions: TAKE 1 TABLET BY MOUTH TWICE DAILY tamsulosin 0.4 mg capsule See Rx Instructions .ROUTE .COMPLEX Qty: 90 3RF Dose Instruction: take 1 capsule BY MOUTH EVERY DAY Rx Instructions: take 1 capsule BY MOUTH EVERY DAY (DME) AFO brace See Rx Instructions .Route .MEDSUPPLY Qty: 1 0RF Rx Instructions: RKAFO sennosides-docusate sodium [Stimulant Laxative Plus] 8.6-50 mg tablet See Rx Instructions .ROUTE .COMPLEX Qty: 30 5RF Dose Instruction: TAKE 1 TABLET BY MOUTH EVERY DAY NEEDED FOR constipation Rx Instructions: TAKE 1 TABLET BY MOUTH EVERY DAY NEEDED FOR constipation mometasone 0.1 % ointment 1 applic topical DAILY PRN (Reason: skin irritation) Qty: 45 1RF Rx Instructions: apply to skin daily prn pantoprazole 40 mg tablet,delayed release (DR/EC) 40 mg PO BID Qty: 180 3RF epinephrine [EpiPen 2-Rashard] 0.3 mg/0.3 mL auto-injector 0.3 mg IM ONCE PRN (Reason: anaphylaxis) Qty: 2 0RF fluticasone propionate 50 mcg/actuation spray,suspension 1 spray intranasal DAILY PRN (Reason: Nasal Congestion) Qty: 16 3RF Rx Instructions: administer into each nostril gabapentin 300 mg capsule 300 mg PO TID Qty: 90 5RF levetiracetam [Keppra] 500 mg tablet 500 mg PO BID Qty: 60 5RF paroxetine HCl 20 mg tablet See Rx Instructions .ROUTE .COMPLEX Qty: 30 5RF Dose Instruction: TAKE 1 TABLET BY MOUTH EVERY DAY FOR MOOD Rx Instructions: TAKE 1 TABLET BY MOUTH EVERY DAY FOR MOOD Tylenol 325 mg Tablet 650 mg PO DAILY PRN (Reason: Pain) aspirin 81 mg tablet,delayed release (DR/EC) 81 mg PO DAILY Qty: 30 0RF Discharge Orders: Discharge ED (Routine); Ordered 08/06/23 Ordered By: Isaiah Perez Referrals: Sammy Cai DO [Primary Care Provider] - Discharge Diet: Usual diet Discharge Activity: Increase activity as tolerated Patient Instructions: Opioid Safety, Pain Management Activity Restrictions/Additional Instructions: Thank you for choosing [facility] for your healthcare needs today. Please realize this is an emergency room and that we are providing you with a medical screening exam and this may not be complete and all inclusive of all the testing and or work up that you may need to determine your ailment or severity of your illness. It is very important that you follow up as instructed or that you return to the Emergency Department should you have concerns or if your condition changes or worsens in any way. Discharge home continue pain medications previously prescribed add tizanidine 2 mg 1 every 8 hours as needed. Follow-up with your primary care doctor as needed. Coding Level of Care Code ED Ehs Engineer for Naun Landers
[2023-08-06 11:30] VITALS: BP 107/68; PULSE 118; RESP 25; O2SAT 92
[2023-08-06] MEDS: orphenadrine 30 mg/mL Inj 2 mL IM (12:37)
[2023-08-06] MEDS: ketorolac 30 mg/mL INJ IM (12:38)
[2023-08-06 13:00] VITALS: BP 123/76
== END 2023-08-06 13:30 | disposition home or self-care (01) ==
PROVIDERS: Emergency Provider Family Medicine; PCP Family Medicine
DX: M54.2 Cervicalgia (principal); Z79.82 Long term (current) use of aspirin; Z87.891 Personal history of nicotine dependence; Z86.73 Personal history of transient ischemic attack (TIA), and cerebral infarction without residual deficits; E78.5 Hyperlipidemia, unspecified; I10 Essential (primary) hypertension
CPT/HCPCS: 36415; 71045; 80053; 85025; 93005; 96372; 99285; J1885; J2360

== ENCOUNTER → 2023-09-13 08:26 | Outpatient (BNVA) | payer MEDICARE, OTHER, SELFPAY | PROVIDERS: PCP Family Medicine; Visit Provider Podiatrist Foot & Ankle Surgery | DX: B35.1 Tinea unguium (principal); I73.9 Peripheral vascular disease, unspecified; M21.371 Foot drop, right foot | CPT/HCPCS: 11721 ==

== ENCOUNTER → 2023-12-17 15:50 | Outpatient (BNVA) | payer MEDICARE, OTHER, SELFPAY | PROVIDERS: PCP Family Medicine; Visit Provider Family Medicine | DX: N39.0 Urinary tract infection, site not specified (principal) | CPT/HCPCS: 81000; 87077; 87086; 87184 ==

== ENCOUNTER → 2023-12-26 10:49 | Outpatient (BNVA) | payer MEDICARE, OTHER, SELFPAY | PROVIDERS: PCP Family Medicine; Visit Provider Clinical Nurse Specialist Adult Health | DX: N39.0 Urinary tract infection, site not specified (principal); I73.9 Peripheral vascular disease, unspecified; B35.1 Tinea unguium; M21.371 Foot drop, right foot | CPT/HCPCS: 11721; 81000; 87077; 87086; 87184 ==

== ENCOUNTER → 2024-02-07 11:09 | Outpatient (BNVA) | payer MEDICARE, OTHER, SELFPAY | PROVIDERS: PCP Family Medicine; Visit Provider Clinical Nurse Specialist Adult Health | DX: N39.0 Urinary tract infection, site not specified (principal) | CPT/HCPCS: 81000; 87077; 87086; 87184 ==

== ENCOUNTER → 2024-03-05 09:11 | Outpatient (BNVA) | payer MEDICARE, OTHER, SELFPAY | PROVIDERS: PCP Family Medicine; Visit Provider Podiatrist Foot & Ankle Surgery | DX: B35.1 Tinea unguium (principal); I73.9 Peripheral vascular disease, unspecified; M21.371 Foot drop, right foot | CPT/HCPCS: 11721 ==

== ENCOUNTER → 2024-03-19 08:15 | Outpatient (BNVA) | payer MEDICARE, OTHER, SELFPAY | PROVIDERS: PCP Family Medicine; Visit Provider Family Medicine | DX: Z13.6 Encounter for screening for cardiovascular disorders (principal); N39.0 Urinary tract infection, site not specified; I63.9 Cerebral infarction, unspecified; M21.379 Foot drop, unspecified foot; R53.1 Weakness; D64.9 Anemia, unspecified; D50.9 Iron deficiency anemia, unspecified | CPT/HCPCS: 80053; 80061; 81000; 85025 ==

== ENCOUNTER 2024-03-31 08:38 | Outpatient (RCR) | payer MEDICARE, OTHER, SELFPAY | END 2024-04-05 23:59 | disposition home or self-care (01) | LOC: SPT 08:38 | PROVIDERS: PCP Family Medicine; Visit Provider Family Medicine | DX: I63.9 Cerebral infarction, unspecified (principal); R53.1 Weakness; M21.379 Foot drop, unspecified foot | CPT/HCPCS: 97162; 97530 ==

== ENCOUNTER 2024-04-06 06:00 | Outpatient (RCR) | payer MEDICARE, OTHER, SELFPAY | END 2024-05-06 23:59 | disposition home or self-care (01) | LOC: SPT 06:00 | PROVIDERS: PCP Family Medicine; Visit Provider Family Medicine | DX: I63.30 Cerebral infarction due to thrombosis of unspecified cerebral artery (principal); R53.1 Weakness; M21.371 Foot drop, right foot | CPT/HCPCS: 97110; 97116; 97530 ==

== ENCOUNTER 2024-05-07 06:00 | Outpatient (RCR) | payer MEDICARE, OTHER, SELFPAY | END 2024-06-06 23:59 | disposition home or self-care (01) | LOC: SPT 06:00 | PROVIDERS: PCP Family Medicine; Visit Provider Family Medicine | DX: I63.9 Cerebral infarction, unspecified (principal); M21.379 Foot drop, unspecified foot; R53.1 Weakness | CPT/HCPCS: 97110; 97116; 97530 ==

== ENCOUNTER → 2024-05-22 11:01 | Outpatient (BNVA) | payer MEDICARE, OTHER, SELFPAY | PROVIDERS: PCP Family Medicine; Visit Provider Clinical Nurse Specialist Adult Health | DX: R30.0 Dysuria (principal) | CPT/HCPCS: 81000; 87077; 87086; 87184 ==

== ENCOUNTER 2024-06-07 06:57 | Outpatient (RCR) | payer MEDICARE, OTHER, SELFPAY | END 2024-06-16 23:59 | disposition home or self-care (01) | LOC: SPT 06:57 | PROVIDERS: PCP Family Medicine; Visit Provider Family Medicine | DX: I63.9 Cerebral infarction, unspecified (principal); R53.1 Weakness; M21.371 Foot drop, right foot | CPT/HCPCS: 97110; 97116 ==

== ENCOUNTER → 2024-06-19 11:24 | Outpatient (BNVA) | payer MEDICARE, OTHER, SELFPAY | PROVIDERS: PCP Family Medicine; Visit Provider Family Medicine | DX: N39.0 Urinary tract infection, site not specified (principal) | CPT/HCPCS: 87086 ==

== ENCOUNTER → 2024-08-06 10:45 | Outpatient (BNVA) | payer MEDICARE, OTHER, SELFPAY | PROVIDERS: PCP Family Medicine; Visit Provider Podiatrist Foot & Ankle Surgery | DX: B35.1 Tinea unguium (principal); I73.9 Peripheral vascular disease, unspecified; M21.371 Foot drop, right foot | CPT/HCPCS: 11721 ==

== ENCOUNTER 2024-09-08 06:57 | Inpatient (IN) | payer MEDICARE, OTHER, SELFPAY ==
[2024-09-08] VITALS (16 sets, daily range): BP systolic 100–152; BP diastolic 69–91; PULSE 71–101; RESP 16–26; TEMP 36.6–37.2; O2SAT 89–96; BMI 22.9
--- NOTE | 2024-09-08 07:01 | XR_ITS ---
WS: [id number] XR chest 1V portable [id number] REASON FOR EXAM: dyspnea/cough FINDINGS: Compared to previous examination of 08/06/2023, there are reticular interstitial and groundglass opac ities in the left lower lung field laterally. The right lung field is clear. Moderate tortuosity and ectasia of the thoracic aorta. Mild cardiomegaly. 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 Moderate degenerative spondylosis in the mid and lower th oracic spine. XR/XR chest 1V portable [id number] IMPRESSION: Opacities in the left lower lung of unknown chronicity. Compatible with acute o r subacute pneumonitis.
--- NOTE | 2024-09-08 07:02 | ECG_ITS ---
[facility] Test Date: 2024-09-08 Pat Name: Chico Whatley Department: Room: ICU10 Gender: Male Rn X Ray: : 1940 Requested By: Isaiah Funes Order Number: [id number] Emily MD: Uriel Llanos M.D. Measurements Intervals [place] Rate: 77 P: 0 DE: 0 QRS: -29 QRSD: 96 T: -50 QT: 389 QTc: 441 Interpretive Statements ATRIAL FIBRILLATION WITH ABERRANT CONDUCTION OR VENTRICULAR PREMATURE COMPLEXES POSSIBLE ANTERIOR MYOCARDIAL INFARCTION , OF INDETERMINATE AGE [30 ms Q WAVE IN V3/V4, OR R < 0.2 mV IN V4] INFERIOR MYOCARDIAL INFARCTION , OF INDETERMINATE AGE [40+ ms Q WAVE AND/OR ST/T ABNORMALITY IN II/aVF] Compared to ECG 09/08/2024 09:13:25 Ventricular premature complex(es) now present Aberrant conduction of supraventricular beat(s) now present Myocardial infarct finding still present Electronically Signed On 09-08-2024 21:27:25 WORKDAY DIRECTOR by Uriel Llanos M.D. [id number]
--- NOTE | 2024-09-08 07:11 | ED_ITS ---
HPI - SOB/Dyspnea 2 General: Chief Complaint: Nausea/Vomiting/Diarrhea Stated Complaint: RESP. DISTRESS Time Seen by Provider: 09/08/24 07:00 History of Present Illness: HPI Narrative: 83-year-old male presents emergency room with difficulty breathing. Patient has previously had a stroke last couple of days he said he did not feel well the noticed that he was beginning to get more weak he needs more assistance with ambulation. He had for the most part recovered from his stroke he has persistent right-sided deficits with paralysis and some difficulty with speech he never had developed serious problems with swallowing she states. He had told her he did not feel quite right over the last couple of days. She had noticed he was more weak and needed more assistance with walking that his pre-existing deficits seems to have been exacerbated. Overnight he began to have difficulty breathing complaining of shortness of breath and had some vomiting this morning she also noticed a fever. Denied any chest pain. Multiple episodes of vomiting evident on his shirt. Associated symptoms: Reports nausea and vomiting; Deny abdominal pain, chest pain or fever(s) Related Data Home Medications Medication Instructions Recorded Confirmed acetaminophen 325 mg tablet 650 mg PO DAILY PRN Pain 07/30/22 09/08/24 (Tylenol) ascorbic acid (vitamin C) 1,000 mg 1 g PO BID 01/16/23 09/08/24 capsule metoprolol tartrate 25 mg tablet 25 mg PO BID 09/08/24 09/08/24 paroxetine HCl 20 mg tablet 20 mg PO DAILY 09/08/24 09/08/24 sennosides 8.6 mg-docusate sodium 1 tab PO DAILY 09/08/24 09/08/24 50 mg tablet (Stimulant Laxative Plus) tamsulosin 0.4 mg capsule 0.4 mg PO DAILY 09/08/24 09/08/24 Previous Rx's Medication Instructions Recorded aspirin 81 mg tablet,delayed 81 mg PO DAILY #30 tabs 07/30/22 release AFO brace #1 ea 10/10/22 epinephrine 0.3 mg/0.3 mL 0.3 mg (0.3 mL) IM ONCE PRN 05/27/23 injection, auto-injector (EpiPen anaphylaxis #2 ea 2-Rashard) pantoprazole 40 mg tablet,delayed 40 mg PO BID #180 tabs 04/21/24 release lorazepam 0.5 mg tablet 0.5 mg PO DAILY PRN Insomnia #30 06/15/24 tabs levetiracetam 500 mg tablet 500 mg PO BID #60 tabs 07/15/24 (Keppra) methenamine hippurate 1 gram tablet 1 g PO BID Recurrent UTI #60 tabs 07/23/24 Allergies Allergy/AdvReac Type Severity Reaction Status Date / Time sulfamethoxazole Allergy Severe kidney Verified 08/06/24 10:51 [From Bactrim] failure trimethoprim [From Bactrim] Allergy Severe kidney Verified 08/06/24 10:51 failure Review of Systems 2 Const: Denies: fever(s) or chills Card: Denies: chest pain Resp: Reports: dyspnea GI: Reports: nausea and vomiting; Denies: abdominal pain : Denies: dysuria, urinary frequency or urinary urgency Musc: Denies: neck pain or back pain Skin/Breast: Denies: rash PFSH ED 2 PFSH: Medical History Aortic stenosis Urinary retention Osteoarthritis of right knee Iron deficiency anemia Aortic regurgitation Ascending aorta dilatation CVA (cerebral vascular accident) CVA in 2014 Arteriosclerosis Dyslipidemia Essential hypertension Surgical History History of hernia surgery History of resection of small bowel Family History Mother , at age 90 Healthy adult Father , at age 62 Cancer Lung Other CAD (coronary artery disease) Hyperlipidemia Hypertension Denies family history of Diabetes Clotting disorder Dementia Psychiatric illness Chronic kidney disease (CKD) Suicide Anesthesia complication Bleeding disorder Family history of premature coronary artery disease Lung disease Stroke Social History Smoking and tobacco/nicotine status: never used tobacco/nicotine Second hand smoke exposure: No Alcohol intake: current Alcohol intake frequency: few times a month Substance/Drug Use: never Adopted: No Marital status: Current occupational status: retired Physical Exam 2 Const: GENERAL APPEARANCE: cooperative ORIENTATION/CONSCIOUSNESS: Yes awake HENMT: COMMON NORMALS: normocephalic and atraumatic HEAD & SCALP: n ormocephalic and atraumatic Resp: OTHER: Coarse expiratory wheeze and rhonchi Cardio: COMMON NORMALS: regular rate, regular rhythm and No murmurs present (Cardio) RATE: regular rate RHYTHM: regular rhythm GI: COMMON NORMALS: Soft to palpation and No hepatosplenomegaly present A USCULTATION: Yes normoactive bowel sounds PALPATION: Yes Soft to palpation, No Tenderness to palpation present (GI), No Guarding due to palpation present (GI) and Yes No hepatosplenomegaly present Extremity: COMMON NORMALS: normal to inspection, capillary refill normal, no clubbing, cyanosis or edema, no calf tenderness and no pedal edema Skin: COMMON NORMALS: no rashes or lesions noted GENERAL SKIN EXAM: no rashes or lesions noted Course 2 Vital Signs: Vital signs: Vital Signs Temperature 98.4 F 09/08/24 12:04 Pulse Rate 73 09/08/24 13:35 Respiratory Rate 20 H 09/08/24 13:35 Blood Pressure 100/69 09/08/24 12:04 Pulse Oximetry 96 09/08/24 13:35 Oxygen Delivery Me thod Nasal Cannula 09/08/24 13:35 Oxygen Flow Rate 4.5 09/08/24 13:35 MDM - SOB/Dyspnea Medical Decision Making Patient has pneumonia with acute hypoxic respiratory failure. He also has a history of atrial fibrillation. Will admit discussed with hospitalist admit to ICU orders written antibiotics initiated started both Zosyn and Levaquin at this time cover for anaerobes for anaerobes since possibly aspirated. Liver functions mildly elevated gallbladder ultrasound ordered hospitalist will follow-up on this. Medical Records I reviewed the patient's medical records. Lab Data I reviewed the patient's lab results. 09/08/24 07:08 09/08/24 07:08 Labs/Radiology: Radiology Impressions Chest X-Ray 09/08/24 07:01 IMPRESSION: Opacities in the left lower lung of unknown chronicity. Compatible with acute or subacute pneumonitis. Chest CTA 09/08/24 07:31 IMPRESSION: 1. No evidence for pulmonary embolus. 2. Small LEFT pleural effusion with compressive atelectasis in the LEFT lower lobe. Groundglass infiltrates in the LEFT greater than RIGHT lower lobe with interstitial edema. Recommend correlation for pneumonia 3. Contrast reflux into the hepatic veins compatible with RIGHT heart dysfunction Gallbladder Ultrasound 09/08/24 10:11 IMPRESSION: 1. Contracted gallbladder with cholelithiasis. No pericholecystic fluid. 2. Mild prominence of the intrahepatic bile ducts. Visualized common bile duct appears normal. Findings could be further evaluated with MRCP if concern for common bile duct obstruction 3. Partially visualized indeterminant RIGHT renal lesion measuring 3.8 x 3.3 x 3.4 cm. This is indeterminant and incompletely evaluated. Recommend further evaluation with contrast-enhanced CT abdomen pelvis.: 4. Simple RIGHT renal cyst. 5.9 x 5.0 x 4.[address] 09/08/24 11:23 IMPRESSION: 1. No evidence of intracranial hemorrhage or mass effect. 2. Paranasal sinusitis. 3. No acute intracranial findings. Laboratory Results WBC 6.60 10^3/uL (3.29-11.43) 09/08/24 07:08 RBC 4.95 10^6/uL (3.85-5.65) 09/08/24 07:08 Hgb 15.00 g/dL (11.27-16.99) 09/08/24 07:08 Hct 45.3 % (37-53) 09/08/24 07:08 MCV 91.5 fl (82-101) 09/08/24 07:08 MCH 30.3 pg (27-33) 09/08/24 07:08 MCHC 33.1 g/dL (30-55) 09/08/24 07:08 RDW 13.9 % (12.1-15.1) 09/08/24 07:08 Plt Count 150 10^3/cmm (157-399) L 09/08/24 07:08 MPV 9.5 fL (7.4-10.4) 09/08/24 07:08 Neut % (Auto) 88.0 % 09/08/24 07:08 Lymph % (Auto) 4.8 % 09/08/24 07:08 [place] % (Auto) 5.6 % 09/08/24 07:08 Eos % (Auto) 0.8 % 09/08/24 07:08 Baso % (Auto) 0.2 % 09/08/24 07:08 Neut # (Auto) 5.81 10^3/uL (1.8-7.7) 09/08/24 07:08 Lymph # (Auto) 0.3 10^3/uL (0.8-4.8) L 09/08/24 07:08 [place] # (Auto) 0.4 10^3/uL (0.2-0.9) 09/08/24 07:08 Eos # (Auto) 0.1 10^3/uL (0.0-0.8) 09/08/24 07:08 Baso # (Auto) 0.0 10^3/uL (0.0-0.1) 09/08/24 07:08 Nucleated RBC % (auto) 0 % 09/08/24 07:08 Nucleated RBCs # 0.0 /100WBC 09/08/24 07:08 PT 14.70 SECONDS (12.1-14.9) 09/08/24 10:13 INR 1.11 (0.8-1.2) 09/08/24 10:13 Specimen Type Arterial 09/08/24 07:50 Sample Site Radial, right 09/08/24 07:50 ABG pH 7.40 (7.35-7.45) 09/08/24 07:50 ABG pCO2 33.9 mmHg (35-45) L 09/08/24 07:50 ABG pO2 93.1 mmHg (80.0-100.0) 09/08/24 07:50 ABG PO2/FiO2 Ratio 232 09/08/24 07:50 ABG HCO3 20.8 mmol/L (22-26) L 09/08/24 07:50 ABG O2 Saturation 97.8 09/08/24 07:50 ABG Base Excess -3.2 mmol/L (-2.0-2.0) L 09/08/24 07:50 Myles Test Pos 09/08/24 07:50 A-a O2 Gradient 20.0 mmHg (5-10) H 09/08/24 07:50 Hematocrit 46.4 % (42-52) 09/08/24 07:50 Hgb O2 Saturation 95.4 % (95-100) 09/08/24 07:50 Carboxyhemoglobin 1.2 %THgb (0.4-20.1) 09/08/24 07:50 Methemoglobin 1.3 % (0.4-1.5) 09/08/24 07:50 Total Hemoglobin 15.2 g/dL (14-18) 09/08/24 07:50 Sodium 144.0 mmol/L (131-143) H 09/08/24 07:50 Potassium 3.0 mmol/L (3.5-5.0) L 09/08/24 07:50 Glucose 116.0 mg/dL (70-115) H 09/08/24 07:50 Ionized Calcium 1.3 mmol/L (1.1-1.4) 09/08/24 07:50 O2 Delivery Device Nc 09/08/24 07:50 O2 Liters/Min 5.0 % 09/08/24 07:50 FiO2 40.0 % 09/08/24 07:50 [place]ade Classifier ID glc 09/08/24 07:50 Sodium 142 mmol/L (136-145) 09/08/24 07:08 Potassium 3.2 mmol/L (3.5-5.1) L 09/08/24 07:08 Chloride 107 mmol/L (98-107) 09/08/24 07:08 Carbon Dioxide 20 mmol/L (22-29) L 09/08/24 07:08 Anion Gap 18.2 (5-19) 09/08/24 07:08 BUN 20 mg/dL (8-23) 09/08/24 07:08 Creatinine 0.7 mg/dL (0.7-1.2) 09/08/24 07:08 GFR Calculation Not Reportable 09/08/24 07:08 Glucose 103 mg/dL (65-115) 09/08/24 07:08 Calculated Osmolality 297 mOsm/kg (285-295) H 09/08/24 07:08 Lactic Acid 2.3 mmol/L (0.5-2.2) H 09/08/24 09:12 Calcium 9.3 mg/dL (8.5-10.5) 09/08/24 07:08 Total Bilirubin 2.2 mg/dL (0.15-1.2) H 09/08/24 07:08 AST 14 U/L (0-40) 09/08/24 07:08 ALT 9 U/L (0-41) 09/08/24 07:08 Alkaline Phosphatase 181 U/L (40-130) H 09/08/24 07:08 Troponin T Baseline 27 ng/L (0-15) H 09/08/24 07:08 Troponin T 120 Minute 25.58 ng/L (0-15) H 09/08/24 09:12 Delta Troponin T -1.42 ABS# (0-10) L 09/08/24 09:12 NT-Pro-B Natriuret Pep 4954 pg/mL (0-450) H 09/08/24 07:08 Total Protein 6.5 g/dL (6.6-8.7) L 09/08/24 07:08 Albumin 4.0 g/dL (3.5-5.2) 09/08/24 07:08 Globulin 2.5 g/dL (1.3-4.6) 09/08/24 07:08 TSH 2.05 uIU/mL (0.27-4.20) 09/08/24 07:08 Urine Color [place] (Yellow) A 09/08/24 09:17 Urine Appearance Clear (CLEAR) 09/08/24 09:17 Urine pH 5.5 (5-7) 09/08/24 09:17 Ur Specific [place] 1.020 (1.005-1.030) 09/08/24 09:17 Urine Protein 1+ (Negative) A 09/08/24 09:17 Urine Glucose (UA) Negative (Normal) 09/08/24 09:17 Urine Ketones 1+ (Negative) H 09/08/24 09:17 Urine Blood Negative (Negative) 09/08/24 09:17 Urine Nitrate Negative (Negative) 09/08/24 09:17 Urine Bilirubin Negative (Negative) 09/08/24 09:17 Urine Urobilinogen 1.0 mg/dL (Negative) 09/08/24 09:17 Ur Leukocyte Esterase 1+ (Negative) A 09/08/24 09:17 Urine RBC 0-2 /hpf (0-2) 09/08/24 09:17 Urine WBC 21-50 /hpf (0-5) H 09/08/24 09:17 Ur Squamous Epith Cells 11-20 /hpf (0-5) 09/08/24 09:17 Amorphous Sediment Not Reportable 09/08/24 09:17 Urine Bacteria None seen /hpf (NONE) 09/08/24 09:17 Hyaline Casts 4.52 /lpf 09/08/24 09:17 Coronavirus (PCR) Negative (Negative) 09/08/24 07:33 Influenza A (PCR) Negative (Negative) 09/08/24 07:33 Influenza Type B (PCR) Negative (Negative) 09/08/24 07:33 RSV (PCR) Negative (Negative) 09/08/24 07:33 All radiology interpretation(s) finalized by discharge Discharge Plan Discharge Patient Disposition: Admitted As Inpatient Admit Provider: Arun Aguillon Clinical Impression: Acute respiratory failure with hypoxia, Pneumonia, Hypokalemia, Atrial fibrillation, Elevated liver function tests Condition: Stable Coding Level of Care Code ED Customer Expert for Naun Landers
[2024-09-08 07:24] LABS: Basophils % 0.2 %; Eosinophils # 0.1 10^3/uL (0.0-0.8); Eosinophils % 0.8 %; Hematocrit 45.3 % (37-53); Lymphocytes # 0.3 10^3/uL (0.8-4.8); Lymphocytes % 4.8 %; Mean Corpuscular HGB Conc 33.1 g/dL (30-55); Mean Corpuscular Hemoglobin 30.3 pg (27-33); Mean Corpuscular Volume 91.5 fl (82-101); Mean Platelet Volume 9.5 fL (7.4-10.4); Monocytes # 0.4 10^3/uL (0.2-0.9); Monocytes % 5.6 %; Neutrophils # 5.81 10^3/uL (1.8-7.7); Nucleated Red Blood Cells % 0 %; Platelet Count 150 10^3/cmm (157-399); Red Blood Count 4.95 10^6/uL (3.85-5.65); Red Cell Distribution Width 13.9 % (12.1-15.1)
--- NOTE | 2024-09-08 07:31 | CT_ITS ---
WS: [id number] CTA OF THE CHEST WITH PULMONARY EMBOLISM PROTOCOL TECHNIQUE: High-resolution contrast enhanced CTA of the chest with coronal and sagittal reformatted i yogeshs with pulmonary embolism protocol. MIP images are also reviewed. CLINICAL INFORMATION: Hemoptysis hypoxia COMPARISON: 2020 DLP: 362.[address] scans at [facility] use at least one of these dose optimization techniques: automated e xposure control; mA and/or kV adjustment per patient size (includes targeted exams where dose is matc hed to clinical indication); or iterative reconstruction. FINDINGS: Proximal main pulmonary arteries are normal. No evidence of pulmonary embolus. Cardiomegaly. 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 Normal caliber descending thora cic aorta. Coronary calcification. Advanced chronic emphysematous changes. Shallow inspiration. Patch y infiltrates with interstitial edema in the LEFT greater than RIGHT lower lobes. Small LEFT pleural fluid. Recommend correlation for LEFT lower lobe pneumonia. Small esophageal hiatal hernia. Splenic artery calcification. Contracts reflux into the IVC suggestin g RIGHT heart dysfunction. Mild chronic compression deformities in the midthoracic spine CT/CT angio chest PE protcl [id number] IMPRESSION: 1. No evidence for pulmonary embolus. 2. Small LEFT pleural effusion with compressive atelectasis in the LEFT lower lobe. Groundglass infiltrates in the LEFT greater than RIGHT lower lobe with in terstitial edema. Recommend correlation for pneumonia 3. Contrast reflux into the hepatic veins compatible with RIGHT heart dysfunct ion
[2024-09-08 07:35] LABS: Alanine Aminotransferase 9 U/L (0-41); Alkaline Phosphatase 181 U/L (40-130); Anion Gap 18.2 (5-19); Aspartate Amino Transferase 14 U/L (0-40); Blood Urea Nitrogen 20 mg/dL (8-23); Calcium 9.3 mg/dL (8.5-10.5); Carbon Dioxide 20 mmol/L (22-29); Chloride 107 mmol/L (98-107); Creatinine Clr Calc Pharmacy 74.6002; Globulin 2.5 g/dL (1.3-4.6); Glucose 103 mg/dL (65-115); Osmolality Calculated 297 mOsm/kg (285-295); Potassium 3.2 mmol/L (3.5-5.1); Sodium 142 mmol/L (136-145); Total Bilirubin 2.2 mg/dL (0.15-1.2); Total Protein 6.5 g/dL (6.6-8.7)
[2024-09-08 07:36] LABS: Troponin(5th) Baseline 27 ng/L (0-15)
[2024-09-08] MEDS: ipratropium-albuterol 3 mL Neb INHALATION (07:36)
[2024-09-08 08:01] LABS: ABG PCO2 33.9 mmHg (35-45); Arterial Blood Gas Hematocrit 46.4 % (42-52); Base Excess ABG -3.2 mmol/L (-2.0-2.0); Blood Gas Allen Test Pos; Blood Gas Operator Identificat glc; Blood Gas Sample Site Radial, right; Blood Gas Sample Type Arterial; Carboxyhemoglobin 1.2 %THgb (0.4-20.1); HCO3 ABG 20.8 mmol/L (22-26); HGB O2 Sat 95.4 % (95-100); Ionized Calcium Level - ABG 1.3 mmol/L (1.1-1.4); Methemoglobin 1.3 % (0.4-1.5); Oxygen Saturation ABG 97.8; PO2 ABG 93.1 mmHg (80.0-100.0); Total Hemoglobin 15.2 g/dL (14-18)
[2024-09-08 08:02] LABS: Oxygen Device NC; PO2 FiO2 Ratio Arterial Blood 232
[2024-09-08 08:31] LABS: Covid PCR NEGATIVE (Negative); Influenza A NEGATIVE (Negative); Influenza B NEGATIVE (Negative); Respiratory Syncytial Virus Ce NEGATIVE (Negative)
[2024-09-08] MEDS: iohexol 350 mg/mL 500 mL Btl (per mL) IV (08:38)
--- NOTE | 2024-09-08 09:02 | ECG_ITS ---
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 Measurements Intervals [place] Rate: 96 P: 0 AK: 0 QRS: -26 QRSD: 102 T: -68 QT: 347 QTc: 440 Interpretive Statements ATRIAL FIBRILLATION INFERIOR MYOCARDIAL INFARCTION , OF INDETERMINATE AGE [40+ ms Q WAVE AND/OR ST/T ABNORMALITY IN II/aVF] Compared to ECG 08/06/2023 10:27:15 Sinus rhythm no longer present Sinus arrhythmia no longer present Myocardial infarct finding still present Electronically Signed On 09-08-2024 21:53:44 WOODEN [employer]ADE HARDWARE INSTALLER by Uriel Llanos M.D. [id number]
[2024-09-08] MEDS: methylPREDNISolone sod succ 125 mg/2 mL INJ IVP (09:09)
[2024-09-08] MEDS: levofloxacin-dextrose 5 % 750 MG/150 ML PREMIX 100 MG IV (09:11)
--- NOTE | 2024-09-08 09:13 | ECG_ITS ---
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 Measurements Intervals [place] Rate: 95 P: 0 [place]: 0 QRS: -23 QRSD: 101 T: -67 QT: 342 QTc: 431 Interpretive Statements ATRIAL FIBRILLATION INFERIOR MYOCARDIAL INFARCTION , OF INDETERMINATE AGE [40+ ms Q WAVE AND/OR ST/T ABNORMALITY IN II/aVF] Compared to ECG 09/08/2024 07:58:49 No significant changes Electronically Signed On 09-08-2024 21:53:36 ETHNIC ORIGINS TEACHER by Uriel Llanos M.D. [email or web address]
[2024-09-08 09:48] LABS: Lactic Sepsis W/Reflex 2.3 mmol/L (0.5-2.2)
[2024-09-08 09:50] LABS: Troponin 5 2HR 25.58 ng/L (0-15)
[2024-09-08 09:51] LABS: Troponin 5 2HR Delta -1.42 ABS# (0-10)
[2024-09-08 10:01] LABS: Bilirubin Urine Negative (Negative); Blood Urine Negative (Negative); Glucose Urine UA Negative (Normal); Ketones Urine 1+ (Negative); Leukocyte Esterase Urine 1+ (Negative); Nitrate Urine Negative (Negative); Protein Urine 1+ (Negative); Urine Appearance Clear (CLEAR); pH Urine 5.5 (5-7)
[2024-09-08 10:06] LABS: Add Urine Microscopic? YES; Bacteria Urine None Seen /hpf; Hyaline Casts Urine 4.52 /lpf; RBC Urine 0-2 /hpf (0-2); WBC Urine 21-50 /hpf (0-5)
[2024-09-08 10:10] LABS: Add Urine Culture? Yes; Urine Color Orange (Yellow)
--- NOTE | 2024-09-08 10:11 | US_ITS ---
WS: [id number] ULTRASOUND ABDOMEN LIMITED CLINICAL INFORMATION: elevated t bili COMPARISON: None. FINDINGS: Liver Size: Normal. Craniocaudal length: 13.9 cm. Echogenicity: Normal. Surface nodularity: None. Mass (size and location): None. Bile ducts Intrahepatic ducts: Mild prominence Common bile duct diameter: 0.4 cm. Gallbladder Contracted with gallstones Gallstones present Gallbladder sludge: None. Gallbladder wall thickening: None. Pericholecystic fluid: None. Sonographic Mcmullen sign: Absent. Pancreas Not well visualized Right kidney: RIGHT renal cyst measuring 5.9 x 5.0 4.9 cm Indeterminate partially evaluated RIGHT renal lesion measuring 3.8 x 3.3 x 3.4 cm. Hydronephrosis: None. Size: 9.4 cm x 5.0 cm x 5.4 cm. Abdominal aorta and IVC Visualized portions are normal. Ascites: None. US/US gall bladder [id number] IMPRESSION: 1. Contracted gallbladder with cholelithiasis. No pericholecystic fluid. 2. Mild prominence of the intrahepatic bile ducts. Visualized common bile duct appears normal. Findings could be further evaluated with MRCP if concern for c ommon bile duct obstruction 3. Partially visualized indeterminant RIGHT renal lesion measuring 3.8 x 3.3 x 3.4 cm. This is indeterminant and incompletely evaluated. Recommend further ev aluation with contrast-enhanced CT abdomen pelvis.: 4. Simple RIGHT renal cyst. 5.9 x 5.0 x 4.9 cm
[2024-09-08] MEDS: piperacillin-tazobactam 3.375 GM in sodium chloride 0.9% (plus) 50 ML IV ×2 (10:31→17:33)
[2024-09-08 10:40] LABS: INR 1.11 (0.8-1.2)
[2024-09-08 10:51] LABS: NT Pro B Type Natriuretic Pept 4954 pg/mL (0-450)
[2024-09-08 11:14] LABS: Reflex Lactate Order REFLEX LACTIC ORDERD
--- NOTE | 2024-09-08 11:19 | P.HP_ITS ---
Documented by User: Leonel Hurley 09/08/24 13:12 Providers/Chief Complaint 2 Admitting Physician: Arun Aguillon MD Primary Care Provider: Sammy Cai DO Chief Complaint: RESP. DISTRESS History of Present Illness Chico Whatley is a 83 y.o. male with PMHx of stroke who presented to the ED after 2-3 days of feeling off accompanied by generalized weakness and increased confusion from baseline. Since the stroke he's had reduced strength and function of his right-sided extremities. His presentation today was prompted when he awoke last night with shaking chills and fever. History was obtained mostly from his . She reports he had vomit all over his shirt last night. He has also been coughing frequently with occasional hemoptysis. Denies dysphagia. He quit smoking 45 years ago. She also reports seeing blood in his stool last night, which happens occasionally. Review of Systems 2 Const: Reports: fever(s), chills and malaise Eyes: Denies: change in vision ENMT: Reports: other (Coughing up of brown sputum and occasional blood.); Denies: throat pain or odynophagia Card: Denies: chest pain or swelling of feet/ankles Resp: Reports: dyspnea, productive cough and hemoptysis GI: Reports: vomiting, constipation and hematochezia; Denies: abdominal pain or dysphagia : Denies: dysuria or hematuria Musc: Reports: other (Residual right sided weakness s/p stroke.) Skin/Breast: Denies: rash or skin pain Neuro: Reports: lack of coordination, difficulty walking and confusion; Denies: headache(s) or dizziness Abhi/Lymph: Denies: purpura or tender lymph nodes All/Imm: Denies: urticaria Medications/Allergies Home Medications Medication Instructions Recorded Confirmed Last Taken Type acetaminophen 325 mg tablet 650 mg PO DAILY PRN Pain 07/30/22 09/08/24 07/30/22 History (Tylenol) aspirin 81 mg tablet,delayed 81 mg PO DAILY #30 tabs 07/30/22 09/08/24 Unknown Rx release AFO brace #1 ea 10/10/22 09/08/24 Unknown Rx ascorbic acid (vitamin C) 1,000 mg 1 g PO BID 01/16/23 09/08/24 Unknown History capsule epinephrine 0.3 mg/0.3 mL 0.3 mg (0.3 mL) IM ONCE PRN 05/27/23 09/08/24 Unknown Rx injection, auto-injector (EpiPen anaphylaxis #2 ea 2-Rashard) pantoprazole 40 mg tablet,delayed 40 mg PO BID #180 tabs 04/21/24 09/08/24 Unknown Rx release lorazepam 0.5 mg tablet 0.5 mg PO DAILY PRN Insomnia #30 06/15/24 09/08/24 Unknown Rx tabs levetiracetam 500 mg tablet 500 mg PO BID #60 tabs 07/15/24 09/08/24 Unknown Rx (Keppra) methenamine hippurate 1 gram tablet 1 g PO BID Recurrent UTI #60 tabs 07/23/24 09/08/24 Unknown Rx metoprolol tartrate 25 mg tablet 25 mg PO BID 09/08/24 09/08/24 Unknown History paroxetine HCl 20 mg tablet 20 mg PO DAILY 09/08/24 09/08/24 Unknown History sennosides 8.6 mg-docusate sodium 1 tab PO DAILY 09/08/24 09/08/24 Unknown History 50 mg tablet (Stimulant Laxative Plus) tamsulosin 0.4 mg capsule 0.4 mg PO DAILY 09/08/24 09/08/24 Unknown History Allergies Allergy/AdvReac Type Severity Reaction Status Date / Time sulfamethoxazole Allergy Severe kidney Verified 08/06/24 10:51 [From Bactrim] failure trimethoprim [From Bactrim] Allergy Severe kidney Verified 08/06/24 10:51 failure PFSH Acute 2 PFSH: Medical History Aortic stenosis Urinary retention Osteoarthritis of right knee Iron deficiency anemia Aortic regurgitation Ascending aorta dilatation CVA (cerebral vascular accident) CVA in 2014 Arteriosclerosis Dyslipidemia Essential hypertension Surgical History History of hernia surgery History of resection of small bowel Family History Mother , at age 90 Healthy adult Father , at age 62 Cancer Lung Other CAD (coronary artery disease) Hyperlipidemia Hypertension Denies family history of Diabetes Clotting disorder Dementia Psychiatric illness Chronic kidney disease (CKD) Suicide Anesthesia complication Bleeding disorder Family history of premature coronary artery disease Lung disease Stroke Social History Smoking and tobacco/nicotine status: never used tobacco/nicotine Second hand smoke exposure: No Alcohol intake: current Alcohol intake frequency: few times a month Substance/Drug Use: never Adopted: No Marital status: Current occupational status: retired Vitals/I&O/Wt Last Vital Signs Temp 98.9 F 09/08/24 07:05 Pulse 93 09/08/24 07:47 Resp 26 H 09/08/24 07:39 BP 100/69 09/08/24 11:00 Pulse Ox 92 09/08/24 11:00 O2 Del Method Nasal Cannula 09/08/24 07:39 O2 Flow Rate 5 09/08/24 07:47 Weight last 48 hrs Weight 160 lb Physical Exam 2 Narrative: General: Alert and oriented. No acute distress. Cooperative. Slowed response to stimuli. HEENT: Normocephalic, atraumatic. Brown, mucousy sputum visualized on tongue and hard palate. No oropharyngeal obstruction. Nasal cannula in place set at 5L. Cardiovascular: Regular rate and rhythm. No obvious murmurs. Pulmonary: Coarse breath sounds, worse on expiration. Abdomen: Soft, nondistended. Nontender. No obvious organomegaly. Extremities: No edema. No cyanosis. Capillary refill intact. Neuro: Decreased strength and coordination of right arm and right leg. Psych: Appropriate mood and affect. Cooperative. Data 09/08/24 07:08 09/08/24 07:08 Micro: Microbiology 09/08/24 09:12 Blood Culture - Preliminary Blood SPECIMEN COLLECTED 09/08/24 09:20 Blood Culture - Preliminary Blood SPECIMEN COLLECTED A&P Assessment and plan (1) Pneumonia: Pt had home fevers, productive cough, low oxygen saturation, and risk factors for aspiration. CXR and CTA demonstrate opacities in the left lower lobe compatible with pneumonia and evidence of parapneumonic effusion. Medical history shows previous pseudomonal infection. Will place on Zosyn to cover Pseudomonas, Vancomycin to cover MRSA, and Levaquin to cover atypicals. Duonebs q6h prn. Solu-Medrol IV daily. Will eventually plan for evaluation by speech therapy. (2) Acute respiratory failure with hypoxia: See above Tachypneic with decreased oxygen saturation at presentation. Currently requiring 5L via NC. Does not require oxygen at baseline. ABG revealed decreased pCO2 and HCO3 with elevated A-a O2 gradient. (3) Vomiting: Vomiting reported prior to presentation. Unknown quantity. No abdominal pain. ABG shows normal pH. Head CT showed no evidence of hemorrhage or mass effect. Gallbladder US reveals cholelithiasis but no evidence of cholecystitis. Likely post-tussive or due to febrile illness. Zofran PRN if nausea arises. Protonix BID. Continue to monitor. (4) Hypokalemia: Potassium 3.2. Repleted with 40 mEq KCl PO. Recheck BMP. (5) Weakness: Patient endorses generalized weakness over past few days. CBC shows he is not anemic. CT head shows no hemorrhage or mass effect. Likely caused by acute illness superimposed upon weakness from past stroke. Serial neurologic examinations. (6) Atrial fibrillation: Heart rate has remained mostly normal since presentation with max of 101. Has elevated [id number] score, but also elevated HAS-BLED score suggesting significant risk of bleeding with additional anticoagulation. Plan Indeterminate urinalysis Seizure disorder Multiple other medical problems as outlined in past medical history Patient does not want CPR, other measures are okay Lovenox will be used for DVT prophylaxis Coding Level of Care Code 46025 Diagnoses Pneumonia J18.9 Acute respiratory failure with hypoxia J96.01 Vomiting R11.10 Hypokalemia E87.6 Weakness R53.1 Atrial fibrillation I48.91 Time Spent (min) 46 Documented by User: Arun Aguillon MD 09/08/24 13:13 Providers/Chief Complaint 2 Chief Complaint: RESP. DISTRESS History of Present Illness Chico Whatley is a 83 y.o. male with PMHx of stroke who presented to the ED after 2-3 days of feeling off accompanied by generalized weakness and increased confusion from baseline. Since the stroke he's had reduced strength and function of his right-sided extremities. His presentation today was prompted when he awoke last night with shaking chills and fever. History was obtained mostly from his . She reports he had vomit all over his shirt last night. He has also been coughing frequently with occasional expectoration with mucous and some blood. Denies dysphagia. He quit smoking 45 years ago. She also reports seeing blood in his stool last night, which happens occasionally. Medications/Allergies Home Medications Medication Instructions Recorded Confirmed Last Taken Type acetaminophen 325 mg tablet 650 mg PO DAILY PRN Pain 07/30/22 09/08/24 07/30/22 History (Tylenol) aspirin 81 mg tablet,delayed 81 mg PO DAILY #30 tabs 07/30/22 09/08/24 Unknown Rx release AFO brace #1 ea 10/10/22 09/08/24 Unknown Rx ascorbic acid (vitamin C) 1,000 mg 1 g PO BID 01/16/23 09/08/24 Unknown History capsule epinephrine 0.3 mg/0.3 mL 0.3 mg (0.3 mL) IM ONCE PRN 05/27/23 09/08/24 Unknown Rx injection, auto-injector (EpiPen anaphylaxis #2 ea 2-Rashard) pantoprazole 40 mg tablet,delayed 40 mg PO BID #180 tabs 04/21/24 09/08/24 Unknown Rx release lorazepam 0.5 mg tablet 0.5 mg PO DAILY PRN Insomnia #30 06/15/24 09/08/24 Unknown Rx tabs levetiracetam 500 mg tablet 500 mg PO BID #60 tabs 07/15/24 09/08/24 Unknown Rx (Keppra) methenamine hippurate 1 gram tablet 1 g PO BID Recurrent UTI #60 tabs 07/23/24 09/08/24 Unknown Rx metoprolol tartrate 25 mg tablet 25 mg PO BID 09/08/24 09/08/24 Unknown History paroxetine HCl 20 mg tablet 20 mg PO DAILY 09/08/24 09/08/24 Unknown History sennosides 8.6 mg-docusate sodium 1 tab PO DAILY 09/08/24 09/08/24 Unknown History 50 mg tablet (Stimulant Laxative Plus) tamsulosin 0.4 mg capsule 0.4 mg PO DAILY 09/08/24 09/08/24 Unknown History Allergies Allergy/AdvReac Type Severity Reaction Status Date / Time sulfamethoxazole Allergy Severe kidney Verified 08/06/24 10:51 [From Bactrim] failure trimethoprim [From Bactrim] Allergy Severe kidney Verified 08/06/24 10:51 failure PFSH Acute 2 PFSH: Medical History Aortic stenosis Urinary retention Osteoarthritis of right knee Iron deficiency anemia Aortic regurgitation Ascending aorta dilatation CVA (cerebral vascular accident) CVA in 2014 Arteriosclerosis Dyslipidemia Essential hypertension Surgical History History of hernia surgery History of resection of small bowel Family History Mother , at age 90 Healthy adult Father , at age 62 Cancer Lung Other CAD (coronary artery disease) Hyperlipidemia Hypertension Denies family history of Diabetes Clotting disorder Dementia Psychiatric illness Chronic kidney disease (CKD) Suicide Anesthesia complication Bleeding disorder Family history of premature coronary artery disease Lung disease Stroke Social History Smoking and tobacco/nicotine status: never used tobacco/nicotine Second hand smoke exposure: No Alcohol intake: current Alcohol intake frequency: few times a month Substance/Drug Use: never Adopted: No Marital status: Current occupational status: retired Physical Exam 2 Narrative: General: Alert and oriented. No acute distress. Cooperative. Slowed response to stimuli. HEENT: Normocephalic, atraumatic. Brown, mucousy dark bloody/creamy sputum visualized on tongue and hard palate. No oropharyngeal obstruction. Nasal cannula in place set at 5L. Cardiovascular: Regular rate and rhythm. No obvious murmurs. Pulmonary: Coarse breath sounds, worse on expiration. Abdomen: Soft, nondistended. Nontender. No obvious organomegaly. Extremities: No edema. No cyanosis. Capillary refill intact. Neuro: Decreased strength and coordination of right arm and right leg. Psych: Appropriate mood and affect. Cooperative. Data 09/08/24 07:08 09/08/24 07:08 Other Labs: CT head has not been completed which demonstrates possible paranasal sinusitis, otherwise no acute findings. Some old lacunar infarcts, atrophy is noted Gallbladder ultrasound demonstrates some mild prominence of intrahepatic bile ducts, indeterminate right renal lesion, contracted gallbladder with cholelithiasis Chest CTA done through the ER demonstrated some pneumonia left side, left pleural effusion which was small. I reviewed this as well. Chest x-ray left lower lobe infiltrate I reviewed this as well Lactic acid 2.3, calcium and albumin normal Total bili 2.2, AST and ALT normal Alk phos 181 Troponin 20 7 repeat 25 BNP 4954 Urinalysis 21-50 whites but 11-20 squamous COVID, influenza, RSV negative EKG demonstrates atrial fibrillation, left axis deviation, poor R wave progression. Q waves noted inferiorly A&P Assessment and plan (1) Pneumonia: Pt had home fevers, productive cough, low oxygen saturation, and risk factors for aspiration. CXR and CTA demonstrate opacities in the left lower lobe compatible with pneumonia and evidence of parapneumonic effusion. Medical history shows previous pseudomonal infection. Will place on Zosyn to cover Pseudomonas, Vancomycin to cover MRSA, and Levaquin to cover atypicals. Duonebs q6h prn. Solu-Medrol IV daily. Speech therapy consult and likely modified swallow in the future. Parapneumonic effusion on CT scan is too small to consider thoracentesis at this time. (2) Acute respiratory failure with hypoxia: See above Tachypneic with decreased oxygen saturation at presentation. Currently requiring 5L via NC. Does not require oxygen at baseline. ABG revealed decreased pCO2 and HCO3 with elevated A-a O2 gradient. Wean oxygen as tolerated (3) Vomiting: Vomiting reported prior to presentation. Unknown quantity. No abdominal pain. ABG shows normal pH. Head CT showed no evidence of hemorrhage or mass effect. Gallbladder US reveals cholelithiasis but no evidence of cholecystitis. Likely post-tussive or due to febrile illness. Zofran PRN if nausea arises. Protonix BID. Continue to monitor. Repeat liver function test tomorrow (4) Hypokalemia: Potassium 3.2. Repleted with 40 mEq KCl PO. Recheck BMP. Magnesium with a.m. lab (5) Weakness: Patient endorses generalized weakness over past few days. CBC shows he is not anemic. CT head shows no hemorrhage or mass effect. Likely caused by acute illness superimposed upon weakness from past stroke. Serial neurologic examinations. Physical therapy consultation (6) Atrial fibrillation: Heart rate has remained mostly normal since presentation with max of 101. Has elevated [id number] score, but also elevated HAS-BLED score suggesting significant risk of bleeding with additional anticoagulation. Lovenox for DVT prophylaxis currently, continue aspirin 81 mg a day Can consider full anticoagulation, but secondary to some blood in sputum currently we will make sure the DVT prophylaxis dosing does not worsen this significantly prior to entertaining full anticoagulation. Plan Indeterminate urinalysis. Urine culture Seizure disorder. Continue Keppra Multiple other medical problems as outlined in past medical history Patient does not want CPR, other measures are okay Lovenox will be used for DVT prophylaxis Attestations 2 Medical Necessity Statement*: Will require greater than 2 midnight stay for eval and treatment of hypoxia and pnemonia Diagnoses Pneumonia J18.9 Acute respiratory failure with hypoxia J96.01 Vomiting R11.10 Hypokalemia E87.6 Weakness R53.1 Atrial fibrillation I48.91 Time Spent (min) 46
--- NOTE | 2024-09-08 11:23 | CT_ITS ---
WS: [id number] CT HEAD TECHNIQUE: Noncontrast CT of the head obtained from the skullbase to the vertex. CLINICAL INFORMATION: weakness, history of hemorrhagic CVA COMPARISON: CT 07/30/2022 DLP: 2241.[address] scans at [facility] use at least one of these dose optimization techniques: automated e xposure control; mA and/or kV adjustment per patient size (includes targeted exams where dose is matc hed to clinical indication); or iterative reconstruction. FINDINGS: No evidence of intracranial hemorrhage or mass effect. Ventricular system and basal cisterns are reyes nt. Advanced small vessel changes with moderate parenchymal volume loss. No extra-axial fluid collect ions. No evidence of mass or mass effect. Vascular calcification. Small chronic lacunar infarcts in t he basal ganglia. Chronic lacunar infarcts in the periventricular white matter. Paranasal sinusitis. Air-fluid levels in the LEFT maxillary sinus and sphenoid sinuses. Fluid in the RIGHT maxillary sinus . Mild mucosal thickening RIGHT mastoid tip. CT/CT head wo con* [id number] IMPRESSION: 1. No evidence of intracranial hemorrhage or mass effect. 2. Paranasal sinusitis. 3. No acute intracranial findings.
--- NOTE | 2024-09-08 11:25 | PHA.VACGOAL ---
Vancomycin Goal - Goal Vancomycin Goal:: 15-20 mg/L Vancomycin Indication:: Other - Therapy Day of therpy:: Day 1 of [] Actual body weight (kg): 160 lb - Data Labs: WBC 6.60 10^3/uL (3.29-11.43) 09/08/24 07:08 RBC 4.95 10^6/uL (3.85-5.65) 09/08/24 07:08 Hgb 15.00 g/dL (11.27-16.99) 09/08/24 07:08 Hct 45.3 % (37-53) 09/08/24 07:08 MCV 91.5 fl (82-101) 09/08/24 07:08 MCH 30.3 pg (27-33) 09/08/24 07:08 MCHC 33.1 g/dL (30-55) 09/08/24 07:08 RDW 13.9 % (12.1-15.1) 09/08/24 07:08 Sodium 142 mmol/L (136-145) 09/08/24 07:08 Potassium 3.2 mmol/L (3.5-5.1) L 09/08/24 07:08 Chloride 107 mmol/L (98-107) 09/08/24 07:08 Carbon Dioxide 20 mmol/L (22-29) L 09/08/24 07:08 Anion Gap 18.2 (5-19) 09/08/24 07:08 BUN 20 mg/dL (8-23) 09/08/24 07:08 Creatinine 0.7 mg/dL (0.7-1.2) 09/08/24 07:08 GFR Calculation Not Reportable 09/08/24 07:08 Treatment plan:: new consult Regimen:: LOADING DOSE OF 2g MAINTENANCE DOSE OF 1000mg Q12H Follow up:: WILL CONTINUE TO MONITOR AND FOLLOW UP DAILY
--- NOTE | 2024-09-08 11:28 | USCV_ITS ---
Chico Whatley Age: 83 Gender: M : 1940 Exam Date: 09/08/2024 14:02 Ordering Phys: Arun Aguillon MD Technologist: Exam Location: [facility] [place] Indication: cp BP: / HR: 82 Rhythm: Sinus Technical Quality: Adequate MEASUREMENTS (Male / Female) Normal Values 2D ECHO LV Diastolic Diameter PLAX 5.4 cm 4.2 - 5.9 / 3.9 - 5.3 cm IVS Diastolic Thickness 1.3 cm 0.6 - 1.0 / 0.6 - 0.9 cm IVS Systolic Thickness 1.3 cm LVPW Diastolic Thickness 1.5 cm 0.6 - 1.0 / 0.6 - 0.9 cm LVPW Systolic Thickness 1.2 cm LVOT Diameter 2.0 cm LV Ejection Fraction 2D Teich 53.0 % LV Ejection Fraction MOD 4C 63.7 % LV Ejection Fraction MOD 2C 57.6 % LV Ejection Fraction 2C AL 56.5 % LA Diameter 4.8 cm Aorta at Sinotubular Diameter 3.4 cm IVC Diameter 2.1 cm M-MODE LA Ao Ratio MM 1.4 AV Cusp Separation MM 1.4 cm DOPPLER AV Peak Velocity 159.3 cm/s LVOT Peak Velocity 81.0 cm/s AV Area Cont Eq vti 1.8 cm squared AV Area Cont Eq pk 1.7 cm squared MV Peak Velocity 126.0 cm/s TV Peak Velocity 227.0 cm/s TR Peak Velocity 233.0 cm/s TR Peak Gradient 21.7 mmHg TV Peak E Velocity 74.0 cm/s PV Peak Velocity 69.0 cm/s FINDINGS Left Ventricle Mild diffuse hypokinesis of the left ventricular ejection fraction of around 50%. Technically difficult study because of the poor apical windows. Right Ventricle The right ventricle is normal in size and function. Right Atrium The right atrium is normal in size. Left Atrium Mildly increased left atrial size. Mitral Valve Mild mitral valve regurgitation. Thickened mitral valve. Aortic Valve Aortic valve sclerosis. Moderate aortic valve regurgitation. Tricuspid Valve Mild tricuspid valve regurgitation. Estimated pulmonary artery peak systolic pressure 25 mmHg Pulmonic Valve Pulmonic valve not well visualized. Pericardium Normal pericardium without effusion. Aorta Normal ascending aorta dimension. IVC Normal inferior vena cava. CONCLUSIONS Mild diffuse hypokinesis of the left ventricular ejection fraction of around 50%. Technically difficult study because of the poor apical windows. Mildly increased left atrial size. The right atrium is normal in size. Aortic valve sclerosis. Moderate aortic valve regurgitation. Mild mitral valve regurgitation. Thickened mitral valve. Mild tricuspid valve regurgitation. Estimated pulmonary artery peak systolic pressure 25 mmHg. There is no pericardial effusion. There are no intracardiac masses. Compared to the study from 12/23/2019, there seems to be a slight drop in the LV ejection fraction. Exact comparison is difficult because of the differences in the technical quality. Dr Naeem Ly MD [facility] (Electronically Signed) Final Date: 08 September 2024 21:02 S
--- NOTE | 2024-09-08 12:01 | PC.NURSE ---
Arrived from ED, transferred to bed with lift sheet, AO x4
[2024-09-08 12:09] LABS: Thyroid Stimulating Hormone 2.05 uIU/mL (0.27-4.20)
[2024-09-08] MEDS: sodium chloride 0.9% 250 ML IV (12:43)
[2024-09-08] MEDS: vancomycin 2,000 MG/400 ML PIGGYBACK 200 MG IV (12:44)
[2024-09-08] MEDS: enoxaparin 40 mg/0.4 mL Syringe SUBCUT (12:45)
[2024-09-08] MEDS: potassium chloride oral liq 20 mEq/15 mL UDC 40 MEQ PO (12:45)
[2024-09-08 12:51] LABS: Lactic Acid level (Lactate) 2.3 mmol/L (0.5-2.2)
--- NOTE | 2024-09-08 13:53 | PC.NURSE ---
report called to [facility]
[2024-09-08 15:13] LABS: Troponin 5 6HR 22.96 ng/L (0-15)
[2024-09-08 15:14] LABS: Troponin 5 6HR Delta -4.04 ng/L (0-12)
[2024-09-08] MEDS: levETIRAcetam 500 mg Tablet PO (17:32)
[2024-09-08] MEDS: pantoprazole DR 40 mg Tablet PO (17:32)
[2024-09-08] MEDS: metoprolol tartrate 25 mg Tablet PO (17:32)
[2024-09-08 20:07] LABS: MRSA PCR OZH (swab) NOT DETECTED (Negative)
[2024-09-08] MEDS: VANCOMYCIN ADD-Vantage 1,000 MG in 0.9% NaCl ADD-Vantage 250 ML 250 MG IV (23:50)
[2024-09-09] VITALS (7 sets, daily range): BP systolic 102–160; BP diastolic 62–103; PULSE 68–97; RESP 16–18; TEMP 36.4–36.9; O2SAT 91–96
[2024-09-09] MEDS: piperacillin-tazobactam 3.375 GM in sodium chloride 0.9% (plus) 50 ML IV ×3 (02:06→17:13)
[2024-09-09 05:39] LABS: Basophils % 0.2 %; Hematocrit 36.5 % (37-53); Lymphocytes # 0.6 10^3/uL (0.8-4.8); Lymphocytes % 4.3 %; Mean Corpuscular HGB Conc 32.9 g/dL (30-55); Mean Corpuscular Hemoglobin 30.5 pg (27-33); Mean Corpuscular Volume 92.6 fl (82-101); Mean Platelet Volume 10.2 fL (7.4-10.4); Monocytes # 0.8 10^3/uL (0.2-0.9); Monocytes % 5.7 %; Neutrophils # 11.62 10^3/uL (1.8-7.7); Nucleated Red Blood Cells % 0 %; Platelet Count 120 10^3/cmm (157-399); Red Blood Count 3.94 10^6/uL (3.85-5.65); Red Cell Distribution Width 14.2 % (12.1-15.1)
[2024-09-09 05:55] LABS: Alanine Aminotransferase 8 U/L (0-41); Albumin Level 3.4 g/dL (3.5-5.2); Alkaline Phosphatase 111 U/L (40-130); Anion Gap 14.8 (5-19); Aspartate Amino Transferase 12 U/L (0-40); Blood Urea Nitrogen 25 mg/dL (8-23); Calcium 8.8 mg/dL (8.5-10.5); Carbon Dioxide 20 mmol/L (22-29); Chloride 106 mmol/L (98-107); Creatinine Clr Calc Pharmacy 74.6002; Globulin 2.3 g/dL (1.3-4.6); Glucose 127 mg/dL (65-115); Magnesium 1.9 mg/dL (1.7-2.3); Osmolality Calculated 290 mOsm/kg (285-295); Potassium 3.8 mmol/L (3.5-5.1); Sodium 137 mmol/L (136-145); Total Bilirubin 1.7 mg/dL (0.15-1.2); Total Protein 5.7 g/dL (6.6-8.7)
[2024-09-09 07:18] LABS: Slide Review Slide Review Perform
--- NOTE | 2024-09-09 09:06 | PC.CHAP ---
Pastoral Care Encounter/Spiritual Assessment Type of Contact [] Declined physician executive visit [] Patient/Family/Request visit [] Outpatient visit [] Follow-up visit [] Physician referral [] Code/Alert [x] Routine visit [] Staff referral [] Actively dying [] Patient sleeping [] Family support [] [] Out of room [] Palliative care [] [] Receiving care in room [] Pre-surgical visit [] Trauma [] Long length of stay [] ICU visit [] Other: Relational/Emotional Strength [x] Patient feels connected with others/family/visitors/staff [] Distress [] Loneliness/isolation [] Abandonment Spirituality of Patient [x] Person of Krystle [] Attends Muslim of their Krystle [x] Believes in Prayer [] Reads Bible or Gnosticism materials [] There are Spiritual issues to be addressed 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 [x] Prayer [x] Active listening [] Non-anxious presence [x] Spiritual/emotional support [] Crisis/trauma care [] Spiritual counseling [] Bereavement support [] Provided bereavement packet [] Provided Bible/devotional materials [] Provided toy/stuffed animal, coloring book to patient or family member [] Provided Communion [] Anointing/[place] [] Salvation [x] Completed spiritual assessment [] Other: Impact on Illness or Injury [] Angry [] Fearful [] Anxious [] Often cries [] Exhaustion [] Unable to work [] Unable to attend advent [] Unable to walk/stand [] Unable to read [] Unable to drive [] Unable to eat/drink [] Unable to sleep [] Unable to be with family [] Patient intubated [] Other: Summary Time spent with patient 5 min
[2024-09-09] MEDS: tamsulosin 0.4 mg Capsule PO (09:27)
[2024-09-09] MEDS: aspirin 81 mg EC Tablet PO (09:27)
[2024-09-09] MEDS: levETIRAcetam 500 mg Tablet PO ×2 (09:27→17:13)
[2024-09-09] MEDS: pantoprazole DR 40 mg Tablet PO ×2 (09:27→17:13)
[2024-09-09] MEDS: metoprolol tartrate 25 mg Tablet PO ×2 (09:28→17:12)
[2024-09-09] MEDS: PARoxetine 20 mg Tablet PO (09:28)
[2024-09-09] MEDS: methylPREDNISolone sod succ 125 mg/2 mL INJ 60 MG IVP (09:28)
[2024-09-09] MEDS: sennosides-docusate Tablet 1 TAB PO (10:37)
[2024-09-09] MEDS: levofloxacin-dextrose 5 % 750 MG/150 ML PREMIX 100 MG IV (11:24)
[2024-09-09] MEDS: VANCOMYCIN ADD-Vantage 1,000 MG in 0.9% NaCl ADD-Vantage 250 ML 250 MG IV (11:25)
[2024-09-09] MEDS: enoxaparin 40 mg/0.4 mL Syringe SUBCUT (11:25)
--- NOTE | 2024-09-09 14:15 | P.PN_ITS ---
Documented by User: Leonel Hurley 09/09/24 14:41 Subjective 2 Subjective: Chico Whatley is an 83 y.o. male on hospital day #2 after admission with pneumonia causing acute respiratory failure with hypoxia. He is sitting up in his chair during our visit today. He was able to eat some breakfast this morning. He feels his symptoms have somewhat improved from yesterday. The vomiting has not recurred. His cough frequency and productivity has decreased however there is still some blood mixed in. He comments that he slept poorly due to not having his lorazepam. He has been weaned off the oxygen. No new concerns. No notable overnight events. Medications: Reviewed: Yes Vitals/I&O/Wt Last Vital Signs Temp 98.0 F 09/09/24 11:25 Pulse 68 09/09/24 11:25 Resp 17 09/09/24 11:25 BP 121/73 09/09/24 11:25 Pulse Ox 92 09/09/24 11:25 O2 Del Method Room Air 09/09/24 11:25 O2 Flow Rate 3 09/09/24 08:00 09/08/24 09/09/24 09/09/24 22:59 06:59 14:59 Intake Total 1020 / 1020 490 / 1510 620.000 / 620.000 Output Total 250 / 250 200 / 200 Balance 1020 / 1020 240 / 1260 420.000 / 420.000 Weight last 48 hrs Weight 160 lb 12.8 oz Weight 160 lb Physical Exam 2 Narrative: General: Alert and oriented. No acute distress. Cooperative. Slowed response to stimuli. HEENT: Normocephalic, atraumatic. Brown, mucousy dark bloody/creamy sputum still present. No oropharyngeal obstruction. Nasal cannula no longer in place. Cardiovascular: Regular rate and rhythm. No obvious murmurs. Pulmonary: Coarse breath sounds, worse on expiration. Improved from yesterday. Abdomen: Soft, nondistended. Nontender. No obvious organomegaly. Extremities: No edema. No cyanosis. Capillary refill intact. Neuro: Decreased strength and coordination of right arm and right leg. Psych: Appropriate mood and affect. Cooperative. Data 09/09/24 05:01 09/09/24 05:01 Micro: Microbiology 09/09/24 12:30 Bacterial Antigens - Final Urine,Voided 09/08/24 09:17 Urine Culture - Preliminary Urine,Clean Catch 09/09/24 10:06 Blood Culture - Preliminary Blood SPECIMEN COLLECTED 09/09/24 10:06 Blood Culture - Preliminary Blood SPECIMEN COLLECTED 09/08/24 09:12 Blood Culture - Preliminary Blood NEGATIVE TO DATE 09/08/24 09:20 Blood Culture - Preliminary Blood Staphylococcus epidermidis A&P Assessment and plan (1) Pneumonia: Pt had home fevers, productive cough, low oxygen saturation, and risk factors for aspiration. CXR and CTA demonstrate opacities in the left lower lobe compatible with pneumonia and evidence of parapneumonic effusion. Parapneumonic effusion on CT scan is too small to consider thoracentesis at this time. Medical history shows previous pseudomonal infection. COVID, Influenza A & B, and RSV all negative. MRSA swab negative, but 1/4 blood cultures positive for Gram+ cocci. Will repeat blood cultures and continue vancomycin. Legionella antibody still pending. Continue Zosyn, Vancomycin, and Levaquin. Duonebs q6h prn. Solu-Medrol IV daily. Speech therapy consult and likely modified swallow in the future. (2) Acute respiratory failure with hypoxia: See above Tachypneic with decreased oxygen saturation at presentation. Does not require oxygen at baseline. Has required up to 5L via NC this hospitalization, but is currently weaned to room air. (3) Vomiting: Vomiting reported prior to presentation. Unknown quantity. No abdominal pain. ABG shows normal pH. Electrolytes remain grossly normal. Head CT showed no evidence of hemorrhage or mass effect. Gallbladder US reveals cholelithiasis but no evidence of cholecystitis. LFTs normal today. Likely post-tussive or due to febrile illness. Zofran PRN if nausea arises. Protonix BID. No recurrence. Continue to monitor. (4) Hypokalemia: Potassium 3.8 today. Magnesium 1.9. Recheck BMP tomorrow. (5) Weakness: Patient endorses generalized weakness over past few days. CBC shows he is not anemic. CT head shows no hemorrhage or mass effect. Likely caused by acute illness superimposed upon weakness from past stroke. Serial neurologic examinations. Physical therapy consultation. Subjective improvement from yesterday. Expect continued improvement as acute illness resolves. (6) Atrial fibrillation: Heart rate has remained mostly normal since presentation with max of 101. Has elevated [id number] score, but also elevated HAS-BLED score suggesting significant risk of bleeding with additional anticoagulation. Lovenox for DVT prophylaxis currently, continue aspirin 81 mg a day Can consider full anticoagulation, but secondary to some blood in sputum currently we will make sure the DVT prophylaxis dosing does not worsen this significantly prior to entertaining full anticoagulation. Plan Indeterminate urinalysis. Urine culture negative to date. Seizure disorder. Continue Keppra Multiple other medical problems as outlined in past medical history Patient does not want CPR, other measures are okay Lovenox will be used for DVT prophylaxis Coding Level of Care Code 56243 Diagnoses Pneumonia J18.9 Acute respiratory failure with hypoxia J96.01 Vomiting R11.10 Hypokalemia E87.6 Weakness R53.1 Atrial fibrillation I48.91 Time Spent (min) 24 Documented by User: Arun Aguillon MD 09/09/24 14:53 Data 09/09/24 05:01 09/09/24 05:01 A&P Assessment and plan (1) Pneumonia: Pt had home fevers, productive cough, low oxygen saturation, and risk factors for aspiration. CXR and CTA demonstrate opacities in the left lower lobe compatible with pneumonia and evidence of parapneumonic effusion. Parapneumonic effusion on CT scan is too small to consider thoracentesis at this time. Medical history shows previous pseudomonal infection. COVID, Influenza A & B, and RSV all negative. MRSA swab negative, but 1/4 blood cultures positive for Gram+ cocci. Will repeat blood cultures and continue vancomycin. Likely this is a contaminant, but will continue to monitor. Legionella antibody still pending. Continue Zosyn, Vancomycin, and Levaquin. Duonebs q6h prn. Solu-Medrol IV daily. Speech therapy consult and likely modified swallow in the future. Still having some blood in the sputum. Patient believes this is perhaps less frequent than it was. Also has some evidence of sinus fluid on CT. (2) Acute respiratory failure with hypoxia: (3) Vomiting: (4) Hypokalemia: (5) Weakness: (6) Atrial fibrillation: Heart rate has remained mostly normal since presentation with max of 101. Has elevated [id number] score, but also elevated HAS-BLED score suggesting significant risk of bleeding with additional anticoagulation. Lovenox for DVT prophylaxis currently, continue aspirin 81 mg a day Can consider full anticoagulation, but secondary to some blood in sputum currently we will make sure the DVT prophylaxis dosing does not worsen this significantly prior to entertaining full anticoagulation. and patient are leaning towards aspirin alone which I think is the most reasonable. Attestations 2 Medical Necessity Statement*: Needs continued hospital stay for IV antibiotics secondary to pneumonia Diagnoses Pneumonia J18.9 Acute respiratory failure with hypoxia J96.01 Vomiting R11.10 Hypokalemia E87.6 Weakness R53.1 Atrial fibrillation I48.91 Time Spent (min) 24
[2024-09-09] MEDS: guaiFENesin 600 mg Tablet PO (17:12)
[2024-09-09] MEDS: polyethylene glycol 3350 Pkt 17 gm PO (17:13)
[2024-09-09] MEDS: LORazepam 0.5 mg Tablet PO (21:02)
[2024-09-10] VITALS: BP 135/86; PULSE 86; RESP 17; TEMP 37; O2SAT 92
[2024-09-10] MEDS: VANCOMYCIN ADD-Vantage 1,000 MG in 0.9% NaCl ADD-Vantage 250 ML 250 MG IV (00:13)
[2024-09-10] MEDS: piperacillin-tazobactam 3.375 GM in sodium chloride 0.9% (plus) 50 ML IV (02:51)
[2024-09-10 04:00] VITALS: BP 147/79; PULSE 76; RESP 17; TEMP 36.4; O2SAT 93
[2024-09-10 07:58] VITALS: BP 148/88; PULSE 73; RESP 17; TEMP 36.4; O2SAT 92
[2024-09-10 09:07] LABS: Basophils % 0.1 %; Hematocrit 38.1 % (37-53); Lymphocytes # 0.7 10^3/uL (0.8-4.8); Lymphocytes % 6.5 %; Mean Corpuscular HGB Conc 32.3 g/dL (30-55); Mean Corpuscular Hemoglobin 30.4 pg (27-33); Mean Corpuscular Volume 94.1 fl (82-101); Monocytes # 0.6 10^3/uL (0.2-0.9); Monocytes % 5.3 %; Neutrophils # 9.29 10^3/uL (1.8-7.7); Neutrophils % 85.9 %; Nucleated Red Blood Cells % 0 %; Platelet Count 124 10^3/cmm (157-399); Red Blood Count 4.05 10^6/uL (3.85-5.65); Red Cell Distribution Width 14.4 % (12.1-15.1); White Blood Count 10.81 10^3/uL (3.29-11.43)
[2024-09-10] MEDS: sennosides-docusate Tablet 1 TAB PO (09:22)
[2024-09-10] MEDS: tamsulosin 0.4 mg Capsule PO (09:22)
[2024-09-10] MEDS: PARoxetine 20 mg Tablet PO (09:22)
[2024-09-10] MEDS: metoprolol tartrate 25 mg Tablet PO (09:22)
[2024-09-10] MEDS: levETIRAcetam 500 mg Tablet PO (09:22)
[2024-09-10] MEDS: polyethylene glycol 3350 Pkt 17 gm PO (09:22)
[2024-09-10] MEDS: pantoprazole DR 40 mg Tablet PO (09:22)
[2024-09-10] MEDS: aspirin 81 mg EC Tablet PO (09:22)
[2024-09-10] MEDS: guaiFENesin 600 mg Tablet PO (09:22)
[2024-09-10 09:23] LABS: Alanine Aminotransferase 8 U/L (0-41); Albumin Level 3.4 g/dL (3.5-5.2); Alkaline Phosphatase 91 U/L (40-130); Anion Gap 12.9 (5-19); Aspartate Amino Transferase 11 U/L (0-40); Blood Urea Nitrogen 22 mg/dL (8-23); Calcium 9.5 mg/dL (8.5-10.5); Carbon Dioxide 20 mmol/L (22-29); Chloride 108 mmol/L (98-107); Creatinine Clr Calc Pharmacy 74.6932; Globulin 2.8 g/dL (1.3-4.6); Glucose 116 mg/dL (65-115); Osmolality Calculated 288 mOsm/kg (285-295); Potassium 3.9 mmol/L (3.5-5.1); Sodium 137 mmol/L (136-145); Total Bilirubin 1.2 mg/dL (0.15-1.2); Total Protein 6.2 g/dL (6.6-8.7)
[2024-09-10] MEDS: methylPREDNISolone sod succ 125 mg/2 mL INJ 60 MG IVP (09:23)
--- NOTE | 2024-09-10 10:27 | P.DS_ITS ---
Discharge Providers Date of Admission: 09/08/24 10:37 Date of Discharge: September 10, 2024 Attending Provider at Admission: Arun Aguillon MD Attending Provider at Discharge: Arun Aguillon MD Primary Care Provider: Sammy Cai DO Diagnoses at Discharge Discharge Diagnosis (1) Pneumonia: Status: Acute (2) Acute respiratory failure with hypoxia: Status: Acute (3) Vomiting: Status: Acute (4) Hypokalemia: Status: Acute (5) Weakness: Status: Acute (6) Atrial fibrillation: Status: Acute Reason for Visit Reason for Visit: RESP. DISTRESS Hospital Course Hospital Course Patient is an 83-year-old white male who presented to the hospital with fever, cough, and found to have pneumonia. He had some blood mixed in with his sputum. He was given IV antibiotics consisting of vancomycin, Levaquin, and Zosyn cons idering past history of Pseudomonas in his urine. He recovered fairly quickly, weaning oxygen, and had significant improvement. He was wheezing some and also got steroids. He had less and less blood in his sputum. By September 10 it was thought he could be discharged home. At that time he was on room air, and producing very little sputum. He will finish up a short course of doxycycline and Levaquin. Sputum culture was negative discharge. He had had 1 blood culture on admission that showed 1 out of 4 bottles Staph epidermidis likely contaminant. Repeat cultures had been drawn and were negative at discharge. He will follow-up with cardiology, and his primary care provider. He has some outstanding abnormalities on his scans, with an indeterminate renal lesion that can be followed up by his primary. He also has some intrahepatic duct dilation and increased LFTs, which did resolve during his hospital stay that can be followed up as an outpatient. Him and his were able to ask questions and agreed with the plan. Physical Exam Narrative: General Exam no distress Neck is supple Cardiovascular irregular and irregular with controlled rate Lungs clear but with diminished breath sounds bilaterally Abdomen is soft nontender Extremities no cyanosis clubbing edema Discharge Data Studies Completed and Pending Completed Studies During Hospitalization Category Date Time Status CT angio chest PE protcl [id number] Stat Cat Scan 09/08/24 07:[address] head wo con* [id number] Routine Cat Scan 09/08/24 11:23 Completed XR chest 1V portable [id number] Stat Exams 09/08/24 07:01 Completed CV. echo complete* [id number] Routine Ultrasound 09/08/24 11:28 Completed US gall bladder [id number] Stat Ultrasound 09/08/24 10:11 Completed Pending at discharge Category Date Time Status Blood Culture Stat Lab 09/08/24 09:20 Results Blood Culture Stat Lab 09/09/24 10:06 Results Legionella Antibody Routine Lab 09/08/24 12:28 Received Sputum Culture and Gram Stain Routine Lab 09/09/24 21:07 Received Urine Culture Stat Lab 09/08/24 09:17 Results Vancomycin Trough Timed Lab 09/10/24 11:00 Ordered Radiology Impressions Chest X-Ray 09/08/24 07:01 IMPRESSION: Opacities in the left lower lung of unknown chronicity. Compatible with acute or subacute pneumonitis. Chest CTA 09/08/24 07:31 IMPRESSION: 1. No evidence for pulmonary embolus. 2. Small LEFT pleural effusion with compressive atelectasis in the LEFT lower lobe. Groundglass infiltrates in the LEFT greater than RIGHT lower lobe with interstitial edema. Recommend correlation for pneumonia 3. Contrast reflux into the hepatic veins compatible with RIGHT heart dysfunction Gallbladder Ultrasound 09/08/24 10:11 IMPRESSION: 1. Contracted gallbladder with cholelithiasis. No pericholecystic fluid. 2. Mild prominence of the intrahepatic bile ducts. Visualized common bile duct appears normal. Findings could be further evaluated with MRCP if concern for common bile duct obstruction 3. Partially visualized indeterminant RIGHT renal lesion measuring 3.8 x 3.3 x 3.4 cm. This is indeterminant and incompletely evaluated. Recommend further evaluation with contrast-enhanced CT abdomen pelvis.: 4. Simple RIGHT renal cyst. 5.9 x 5.0 x 4.[address] 09/08/24 11:23 IMPRESSION: 1. No evidence of intracranial hemorrhage or mass effect. 2. Paranasal sinusitis. 3. No acute intracranial findings. Laboratory Results WBC 10.81 10^3/uL (3.29-11.43) 09/10/24 08:56 RBC 4.05 10^6/uL (3.85-5.65) 09/10/24 08:56 Hgb 12.30 g/dL (11.27-16.99) 09/10/24 08:56 Hct 38.1 % (37-53) 09/10/24 08:56 MCV 94.1 fl (82-101) 09/10/24 08:56 MCH 30.4 pg (27-33) 09/10/24 08:56 MCHC 32.3 g/dL (30-55) 09/10/24 08:56 RDW 14.4 % (12.1-15.1) 09/10/24 08:56 Plt Count 124 10^3/cmm (157-399) L 09/10/24 08:56 MPV 10.0 fL (7.4-10.4) 09/10/24 08:56 Neut % (Auto) 85.9 % 09/10/24 08:56 Lymph % (Auto) 6.5 % 09/10/24 08:56 [place] % (Auto) 5.3 % 09/10/24 08:56 Eos % (Auto) 0.0 % 09/10/24 08:56 Baso % (Auto) 0.1 % 09/10/24 08:56 Neut # (Auto) 9.29 10^3/uL (1.8-7.7) H 09/10/24 08:56 Lymph # (Auto) 0.7 10^3/uL (0.8-4.8) L 09/10/24 08:56 [place] # (Auto) 0.6 10^3/uL (0.2-0.9) 09/10/24 08:56 Eos # (Auto) 0.0 10^3/uL (0.0-0.8) 09/10/24 08:56 Baso # (Auto) 0.0 10^3/uL (0.0-0.1) 09/10/24 08:56 Nucleated RBC % (auto) 0 % 09/10/24 08:56 Nucleated RBCs # 0.0 /100WBC 09/10/24 08:56 PT 14.70 SECONDS (12.1-14.9) 09/08/24 10:13 INR 1.11 (0.8-1.2) 09/08/24 10:13 Specimen Type Arterial 09/08/24 07:50 Sample Site Radial, right 09/08/24 07:50 ABG pH 7.40 (7.35-7.45) 09/08/24 07:50 ABG pCO2 33.9 mmHg (35-45) L 09/08/24 07:50 ABG pO2 93.1 mmHg (80.0-100.0) 09/08/24 07:50 ABG PO2/FiO2 Ratio 232 09/08/24 07:50 ABG HCO3 20.8 mmol/L (22-26) L 09/08/24 07:50 ABG O2 Saturation 97.8 09/08/24 07:50 ABG Base Excess -3.2 mmol/L (-2.0-2.0) L 09/08/24 07:50 Myles Test Pos 09/08/24 07:50 A-a O2 Gradient 20.0 mmHg (5-10) H 09/08/24 07:50 Hematocrit 46.4 % (42-52) 09/08/24 07:50 Hgb O2 Saturation 95.4 % (95-100) 09/08/24 07:50 Carboxyhemoglobin 1.2 %THgb (0.4-20.1) 09/08/24 07:50 Methemoglobin 1.3 % (0.4-1.5) 09/08/24 07:50 Total Hemoglobin 15.2 g/dL (14-18) 09/08/24 07:50 Sodium 144.0 mmol/L (131-143) H 09/08/24 07:50 Potassium 3.0 mmol/L (3.5-5.0) L 09/08/24 07:50 Glucose 116.0 mg/dL (70-115) H 09/08/24 07:50 Ionized Calcium 1.3 mmol/L (1.1-1.4) 09/08/24 07:50 O2 Delivery Device Nc 09/08/24 07:50 O2 Liters/Min 5.0 % 09/08/24 07:50 FiO2 40.0 % 09/08/24 07:50 Javascript Software Engineer ID [email or web address] 09/08/24 07:50 Sodium 137 mmol/L (136-145) 09/10/24 08:56 Potassium 3.9 mmol/L (3.5-5.1) 09/10/24 08:56 Chloride 108 mmol/L (98-107) H 09/10/24 08:56 Carbon Dioxide 20 mmol/L (22-29) L 09/10/24 08:56 Anion Gap 12.9 (5-19) 09/10/24 08:56 BUN 22 mg/dL (8-23) 09/10/24 08:56 Creatinine 0.7 mg/dL (0.7-1.2) 09/10/24 08:56 GFR Calculation Not Reportable 09/10/24 08:56 Glucose 116 mg/dL (65-115) H 09/10/24 08:56 Calculated Osmolality 288 mOsm/kg (285-295) 09/10/24 08:56 Lactic Acid 2.3 mmol/L (0.5-2.2) H 09/08/24 09:12 Lactic Acid (Sepsis) 2.3 mmol/L (0.5-2.2) H 09/08/24 12:28 Calcium 9.5 mg/dL (8.5-10.5) 09/10/24 08:56 Magnesium 1.9 mg/dL (1.7-2.3) 09/09/24 05:01 Total Bilirubin 1.2 mg/dL (0.15-1.2) 09/10/24 08:56 AST 11 U/L (0-40) 09/10/24 08:56 ALT 8 U/L (0-41) 09/10/24 08:56 Alkaline Phosphatase 91 U/L (40-130) 09/10/24 08:56 Troponin T Baseline 27 ng/L (0-15) H 09/08/24 07:08 Troponin T 120 Minute 25.58 ng/L (0-15) H 09/08/24 09:12 Delta Troponin T -1.42 ABS# (0-10) L 09/08/24 09:12 Troponin T Hi Sens 6Hr 22.96 ng/L (0-15) H 09/08/24 14:20 Troponin T Hi Sens 6Hr Delta -4.04 ng/L (0-12) L 09/08/24 14:20 NT-Pro-B Natriuret Pep 4954 pg/mL (0-450) H 09/08/24 07:08 Total Protein 6.2 g/dL (6.6-8.7) L 09/10/24 08:56 Albumin 3.4 g/dL (3.5-5.2) L 09/10/24 08:56 Globulin 2.8 g/dL (1.3-4.6) 09/10/24 08:56 TSH 2.05 uIU/mL (0.27-4.20) 09/08/24 07:08 Urine Color [place] (Yellow) A 09/08/24 09:17 Urine Appearance Clear (CLEAR) 09/08/24 09:17 Urine pH 5.5 (5-7) 09/08/24 09:17 Ur Specific [place] 1.020 (1.005-1.030) 09/08/24 09:17 Urine Protein 1+ (Negative) A 09/08/24 09:17 Urine Glucose (UA) Negative (Normal) 09/08/24 09:17 Urine Ketones 1+ (Negative) H 09/08/24 09:17 Urine Blood Negative (Negative) 09/08/24 09:17 Urine Nitrate Negative (Negative) 09/08/24 09:17 Urine Bilirubin Negative (Negative) 09/08/24 09:17 Urine Urobilinogen 1.0 mg/dL (Negative) 09/08/24 09:17 Ur Leukocyte Esterase 1+ (Negative) A 09/08/24 09:17 Urine RBC 0-2 /hpf (0-2) 09/08/24 09:17 Urine WBC 21-50 /hpf (0-5) H 09/08/24 09:17 Ur Squamous Epith Cells 11-20 /hpf (0-5) 09/08/24 09:17 Amorphous Sediment Not Reportable 09/08/24 09:17 Urine Bacteria None seen /hpf (NONE) 09/08/24 09:17 Hyaline Casts 4.52 /lpf 09/08/24 09:17 Nasal MRSA (PCR) Not detected (Negative) 09/08/24 14:45 Coronavirus (PCR) Negative (Negative) 09/08/24 07:33 Influenza A (PCR) Negative (Negative) 09/08/24 07:33 Influenza Type B (PCR) Negative (Negative) 09/08/24 07:33 RSV (PCR) Negative (Negative) 09/08/24 07:33 Vitals Last Vital Signs Temp 97.5 F L 09/10/24 07:58 Pulse 73 09/10/24 07:58 Resp 17 09/10/24 07:58 BP 148/88 09/10/24 07:58 Pulse Ox 92 09/10/24 07:58 O2 Del Method Room Air 09/10/24 07:58 O2 Flow Rate 3 09/09/24 08:00 Discharge Plan Discharge Patient Disposition: Home Condition: Stable Prescriptions: New doxycycline hyclate 100 mg tablet 100 mg PO BID 7 Days Qty: 14 0RF levofloxacin 750 mg tablet 750 mg PO DAILY 7 Days Qty: 7 0RF prednisone 20 mg tablet 40 mg PO DAILY Qty: 6 0RF Continued ascorbic acid (vitamin C) 1,000 mg capsule 1 g PO BID (DME) AFO brace See Rx Instructions .Route .MEDSUPPLY Qty: 1 0RF Rx Instructions: RKAFO epinephrine [EpiPen 2-Rashard] 0.3 mg/0.3 mL auto-injector 0.3 mg IM ONCE PRN (Reason: anaphylaxis) Qty: 2 0RF pantoprazole 40 mg tablet,delayed release (DR/EC) 40 mg PO BID Qty: 180 3RF lorazepam 0.5 mg tablet 0.5 mg PO DAILY PRN (Reason: Insomnia) Qty: 30 5RF levetiracetam [Keppra] 500 mg tablet 500 mg PO BID Qty: 60 5RF methenamine hippurate 1 gram tablet 1 g PO BID Qty: 60 12RF Rx Instructions: 1 pill twice a day with 1 g vitamin C each dose Start after completing Macrobid acetaminophen [Tylenol] 325 mg Tablet 650 mg PO DAILY PRN (Reason: Pain) aspirin 81 mg tablet,delayed release (DR/EC) 81 mg PO DAILY Qty: 30 0RF metoprolol tartrate 25 mg tablet 25 mg PO BID sennosides-docusate sodium [Stimulant Laxative Plus] 8.6-50 mg tablet 1 tab PO DAILY Rx Instructions: TAKE 1 TABLET BY MOUTH EVERY DAY NEEDED FOR constipation tamsulosin 0.4 mg capsule 0.4 mg PO DAILY Rx Instructions: take 1 capsule BY MOUTH EVERY DAY paroxetine HCl 20 mg tablet 20 mg PO DAILY Rx Instructions: TAKE 1 TABLET BY MOUTH EVERY DAY FOR MOOD Discharge Orders: Discharge Order (Routine); Ordered 09/10/24 Ordered By: Arun Aguillon Referrals: Sammy Cai DO [Primary Care Provider] - 4-7 days Discharge Diet: Cardiac Discharge Activity: Increase activity as tolerated Patient Instructions: Opioid Safety Activity Restrictions/Additional Instructions: Cardiology follow-up in about 2 weeks. He has been established there before. Follow-up with primary care provider 3 to 5 days Primary care provider to evaluate small amount of intrahepatic duct dilation, indeterminate renal lesion. Finish antibiotics as prescribed. Return for any fever. Discharge Attestations Time Spent in Discharge Care*: greater than 30 min Quality Metrics Clinical Quality Measures [ No reported AMI, CVA or VTE this stay] Coding Level of Care Code 67563 Total time (in minutes) for Discharge: 35 Diagnoses Pneumonia J18.9 Acute respiratory failure with hypoxia J96.01 Vomiting R11.10 Hypokalemia E87.6 Weakness R53.1 Atrial fibrillation I48.91
[2024-09-10 10:52] VITALS: PULSE 62; RESP 17; O2SAT 94
[2024-09-10 11:47] VITALS: BP 139/79; PULSE 69; RESP 19; TEMP 36.6; O2SAT 96
[2024-09-10 12:16] LABS: Vancomycin Trough 14.1 ug/mL (10-15)
[2024-09-10 12:55] VITALS: BP 139/79; PULSE 96; RESP 19; TEMP 36.6; O2SAT 96
[2024-09-11 17:16] LABS: Legionella Antibody <1:256 TITER
== END 2024-09-10 12:55 | disposition home or self-care (01) | DRG 193 ==
LOC: ER 07:12 → ICU 10:38 → MEDSURG 14:45
PROVIDERS: Admitting Provider Internal Medicine; Emergency Provider Family Medicine; PCP Family Medicine; Visit Provider Internal Medicine
DX: J18.9 Pneumonia, unspecified organism (principal); J96.01 Acute respiratory failure with hypoxia; I69.351 Hemiplegia and hemiparesis following cerebral infarction affecting right dominant side; I35.0 Nonrheumatic aortic (valve) stenosis; M17.11 Unilateral primary osteoarthritis, right knee; I71.40 Abdominal aortic aneurysm, without rupture, unspecified; E78.5 Hyperlipidemia, unspecified; I10 Essential (primary) hypertension; E87.6 Hypokalemia; I48.91 Unspecified atrial fibrillation; G40.909 Epilepsy, unspecified, not intractable, without status epilepticus; R11.10 Vomiting, unspecified; Z79.82 Long term (current) use of aspirin; Z87.891 Personal history of nicotine dependence; Z88.2 Allergy status to sulfonamides; Z90.49 Acquired absence of other specified parts of digestive tract; Z80.1 Family history of malignant neoplasm of trachea, bronchus and lung; Z82.49 Family history of ischemic heart disease and other diseases of the circulatory system
CPT/HCPCS: 0241U; 36415; 36600; 70450; 71045; 71275; 76705; 80051; 80053; 80202; 81001; 82330; 82805; 83605; 83735; 83880; 84443; 84484; 85025; 85610; 86403; 86713; 87040; 87070; 87077; 87086; 87150; 87186; 87205; 92523; 92526; 92610; 93005; 93306; 94640; 96365; 96367; 96372; 96375; 97110; 97116; 97162; 99285; J1650; J1956; J2543; J2919; J3370; J3372; J7050

== ENCOUNTER 2024-10-06 10:56 | Outpatient (CLI) | payer MEDICARE, OTHER, SELFPAY ==
--- NOTE | 2024-10-06 11:00 | CTR_ITS ---
PROCEDURE INFORMATION: Exam: CT Abdomen And Pelvis Without And With Contrast Exam date and time: 10/06/2024 11:15 AM Age: 83 years old Clinical indication: Abnormal findings; Abnormal radiologic finding of the abdomen; Prior surgery; Surgery date: 6+ months; Surgery type: Small bowel; Patient HX: Follow up from [facility]ta chest pe, disorder of kidney and ureter. ; Additional info: N28.9 - disorder of kidney and ureter, unspecified TECHNIQUE: Imaging protocol: Computed tomography of the abdomen and pelvis without and with contrast. 3D rendering (Not supervised by radiologist): MIP and/or 3D reconstructed images were created by the technologist. Radiation optimization: All CT scans at this facility use at least one of these dose optimization techniques: automated exposure control; mA and/or kV adjustment per patient size (includes targeted exams where dose is matched to clinical indication); or iterative reconstruction. Contrast material: OMNI 350; Contrast volume: 100 ml; Contrast route: INTRAVENOUS (IV); COMPARISON: CT abdomen w con* [id number] 09/28/2019 9:05 AM RADIATION DOSE METRICS: Total DLP (mGy-cm): 1159.89 FINDINGS: Lungs: The lung bases are clear. Heart: Mild cardiomegaly. Liver: Mild hepatic steatosis. No focal liver lesion identified. Gallbladder and biliary ducts: The gallbladder is contracted. Small poorly calcified gallstones in the gallbladder. No pericholecystic inflammation appreciated. Pancreas: The pancreas is normal in appearance. No evidence of pancreatic ductal dilatation. Spleen: The spleen is normal in appearance. Adrenal glands: The adrenal glands are normal in appearance. Kidneys and ureters: No evidence of hydronephrosis or nephroureteral calculi of either kidney. There is a 10 mm simple right renal cortical cyst and a 6.1 cm simple right renal cortical cysts. There are no solid or suspicious renal lesions appreciated on either side. There are multifocal areas of renal cortical scarring in both kidneys. Both kidneys enhance symmetrically and excrete contrast symmetrically. Stomach and bowel: The small bowel loops are not thickened and are nondilated. There is colonic diverticulosis but no evidence of diverticulitis. Appendix: The appendix is normal in appearance. No evidence of appendicitis. Intraperitoneal space: Unremarkable. No free air. No significant fluid collection. Vasculature: Unremarkable. No abdominal aortic aneurysm. Lymph nodes: Unremarkable. No enlarged lymph nodes. Urinary bladder: Mild urinary bladder wall thickening. Consider UA to evaluate for cystitis. Reproductive: Unremarkable as visualized. Bones/joints: No acute osseous lesions. There are multilevel chronic, severe degenerative changes throughout the lumbar spine. There are multilevel neural foraminal stenoses secondary to endplate osteophytes. Soft tissues: Small fat containing left inguinal hernia. CT/CT abdomen pelvis wo/w [id number] IMPRESSION: 1. No suspicious renal lesions. There is bilateral renal cortical scarring and simple cysts only. 2. Hepatic steatosis. 3. Colonic diverticulosis but no evidence of diverticulitis. 4. Query mild urinary bladder wall thickening. Consider UA to exclude cystitis. 5. Colonic diverticulosis but no evidence of diverticulitis. COMMENTS: Consistent with the [place] [employer]'s Incidental Findings Committee white paper (J Am Pan Radiol 2018): Any incidental renal lesion less than 1 cm or classified as too small to characterize, or any incidental cystic renal lesion characterized as simple-appearing, is likely benign. No follow-up imaging is recommended for these lesions per consensus recommendations based on imaging criteria.
[2024-10-06] MEDS: iohexol 350 mg/mL 500 mL Btl (per mL) IV (11:26)
== END 2024-10-06 10:57 | disposition home or self-care (01) ==
PROVIDERS: PCP Family Medicine; Visit Provider Family Medicine
DX: N28.9 Disorder of kidney and ureter, unspecified (principal); R93.5 Abnormal findings on diagnostic imaging of other abdominal regions, including retroperitoneum; N28.1 Cyst of kidney, acquired; K76.0 Fatty (change of) liver, not elsewhere classified; K57.90 Diverticulosis of intestine, part unspecified, without perforation or abscess without bleeding; I51.7 Cardiomegaly; K80.20 Calculus of gallbladder without cholecystitis without obstruction; G31.89 Other specified degenerative diseases of nervous system; M48.00 Spinal stenosis, site unspecified; M25.78 Osteophyte, vertebrae; K40.90 Unilateral inguinal hernia, without obstruction or gangrene, not specified as recurrent
CPT/HCPCS: 74178

== ENCOUNTER → 2024-10-20 10:11 | Outpatient (BNVA) | payer MEDICARE, OTHER, SELFPAY | PROVIDERS: PCP Family Medicine; Visit Provider Podiatrist Foot & Ankle Surgery | DX: R23.4 Changes in skin texture (principal); B35.1 Tinea unguium; I73.9 Peripheral vascular disease, unspecified; M21.371 Foot drop, right foot | CPT/HCPCS: 11721; 99213 ==

== ENCOUNTER → 2024-10-21 13:48 | Outpatient (BNVA) | payer MEDICARE, OTHER, SELFPAY | PROVIDERS: PCP Family Medicine | DX: R39.9 Unspecified symptoms and signs involving the genitourinary system (principal) | CPT/HCPCS: 81000 ==

== ENCOUNTER 2024-12-26 09:35 | Observation (INO) | payer MEDICARE, OTHER, SELFPAY ==
--- NOTE | 2024-12-26 09:00 | ECG_ITS ---
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 Measurements Intervals [place] Rate: 68 P: 0 SD: 0 QRS: -43 QRSD: 102 T: 91 QT: 394 QTc: 421 Interpretive Statements ATRIAL FIBRILLATION LEFT AXIS DEVIATION [QRS AXIS < -30] POSSIBLE ANTERIOR MYOCARDIAL INFARCTION , PROBABLY OLD [30 ms Q WAVE IN V3/V4, OR R < 0.2 mV IN V4] Compared to ECG 09/08/2024 13:08:37 Left-axis deviation now present Ventricular premature complex(es) no longer present Aberrant conduction of supraventricular beat(s) no longer present Myocardial infarct finding still present Electronically Signed On 12-26-2024 14:42:11 CDT by Naeem Ly M.D. [id number]
[2024-12-26 09:36] VITALS: BP 147/85; PULSE 66; RESP 18; TEMP 36.7; O2SAT 99; BMI 21.6
--- NOTE | 2024-12-26 09:38 | ECG_ITS ---
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 Measurements Intervals [place] Rate: 68 P: 0 NM: 0 QRS: -43 QRSD: 102 T: 91 QT: 394 QTc: 421 Interpretive Statements ATRIAL FIBRILLATION LEFT AXIS DEVIATION [QRS AXIS < -30] POSSIBLE ANTERIOR MYOCARDIAL INFARCTION , PROBABLY OLD [30 ms Q WAVE IN V3/V4, OR R < 0.2 mV IN V4] Compared to ECG 09/08/2024 13:08:37 Left-axis deviation now present Ventricular premature complex(es) no longer present Aberrant conduction of supraventricular beat(s) no longer present Myocardial infarct finding still present Electronically Signed On 12-26-2024 14:42:14 CDT by Naeem Ly M.D. [email or web address]
--- NOTE | 2024-12-26 09:39 | CTR_ITS ---
PROCEDURE INFORMATION: Exam: CT Head Without Contrast Exam date and time: 12/26/2024 9:56 AM Age: 84 years old Clinical indication: Altered mental status/memory loss; Age related cognitive decline; Additional info: AMS TECHNIQUE: Imaging protocol: Computed tomography of the head without contrast. Radiation optimization: All CT scans at this facility use at least one of these dose optimization techniques: automated exposure control; mA and/or kV adjustment per patient size (includes targeted exams where dose is matched to clinical indication); or iterative reconstruction. COMPARISON: CT head wo con* [id number] 09/08/2024 11:41 AM RADIATION DOSE METRICS: Total DLP (mGy-cm): 1073.58 FINDINGS: Brain: Chronic lacunar infarcts along the bilateral basal ganglia. No hemorrhage. Bilateral ill-defined periventricular hypodensities consistent with marked chronic microvascular white matter ischemic changes. Cerebral ventricles: Age-related diffuse cortical atrophic changes with compensatory ventricular dilatation. Paranasal sinuses: See Bones finding. Mastoid air cells: Visualized mastoid air cells are well aerated. Bones: Partial opacification of the ethmoid, and bilateral maxillary sinuses, all other visualized paranasal sinuses clear. Soft tissues: Unremarkable. CT/CT head wo con* [id number] IMPRESSION: No acute intracranial abnormality.
--- NOTE | 2024-12-26 09:39 | XRR_ITS ---
PROCEDURE INFORMATION: Exam: XR Chest Exam date and time: 12/26/2024 9:44 AM Age: 84 years old Clinical indication: Dyspnea; H/o stroke; Additional info: AMS TECHNIQUE: Imaging protocol: Radiologic exam of the chest. Views: 1 view. COMPARISON: CT angio chest PE protcl [id number] 09/08/2024 8:25 AM FINDINGS: Lungs: Curvilinear bilateral opacities which can be seen with emphysematous lung changes. Left lower lung base atelectatic lung changes. Pleural spaces: Unremarkable. No pleural effusion. No pneumothorax. Heart/Mediastinum: Unremarkable. No cardiomegaly. Bones/joints: Bilateral marked narrowing of the glenohumeral joints with subchondral sclerosis. Chronic multilevel degenerative changes of the thoracic vertebrae. XR/XR chest 1V portable [id number] IMPRESSION: 1. Left lower lung base atelectatic lung changes. 2. Emphysematous lung changes.
--- NOTE | 2024-12-26 09:39 | CTR_ITS ---
PROCEDURE INFORMATION: Exam: CTA Head With Contrast, Arteriography Exam date and time: 12/26/2024 10:18 AM Age: 84 years old Clinical indication: Drowsiness or somnolence and weakness; Additional info: AMS TECHNIQUE: Imaging protocol: Computed tomographic angiography of the head with contrast. Exam focused on the arteries. 3D rendering (Not supervised by radiologist): MIP and/or 3D reconstructed images were created by the technologist. Radiation optimization: All CT scans at this facility use at least one of these dose optimization techniques: automated exposure control; mA and/or kV adjustment per patient size (includes targeted exams where dose is matched to clinical indication); or iterative reconstruction. Contrast material: OMNIPAQUE 350; Contrast volume: 100 ml; Contrast route: INTRAVENOUS (IV); COMPARISON: CT head wo con* [id number] 12/26/2024 9:56 AM RADIATION DOSE METRICS: Total DLP (mGy-cm): 448.65 FINDINGS: ANTERIOR CIRCULATION: Right internal carotid artery: Intracranial segment is patent with no significant stenosis. No aneurysm. Right middle cerebral artery: No occlusion or significant stenosis. No aneurysm. Right anterior cerebral artery: No opacification of the right A1 segment of the anterior cerebral artery. The right A2 segment of the anterior cerebral artery is well opacified via the anterior communicating artery. Left internal carotid artery: Intracranial segment is patent with no significant stenosis. No aneurysm. Left middle cerebral artery: No occlusion or significant stenosis. No aneurysm. Left anterior cerebral artery: No occlusion or significant stenosis. No aneurysm. POSTERIOR CIRCULATION: Right vertebral artery: No occlusion or significant stenosis. No aneurysm. Left vertebral artery: No occlusion or significant stenosis. No aneurysm. Basilar artery: No occlusion or significant stenosis. No aneurysm. Right posterior cerebral artery: No occlusion or significant stenosis. No aneurysm. Left posterior cerebral artery: No occlusion or significant stenosis. No aneurysm. Brain: Bilateral ill-defined periventricular hypodensities consistent with marked chronic microvascular white matter ischemic changes. Bilateral chronic lacunar infarcts. Cerebral ventricles: Age-related diffuse cortical atrophic changes with compensatory ventricular dilatation. Paranasal sinuses: Partial opacification of the bilateral maxillary sinus, and ethmoid sinuses all other visualized paranasal sinuses clear. Bones/joints: Unremarkable. No acute fracture. Soft tissues: Unremarkable. PROCEDURE INFORMATION: Exam: CTA Neck With Contrast Exam date and time: 12/26/2024 10:18 AM Age: 84 years old Clinical indication: Drowsiness or somnolence and weakness; Additional info: AMS TECHNIQUE: Imaging protocol: Computed tomographic angiography of the neck with contrast. Exam focused on the cervical segments of the vasculature. 3D rendering (Not supervised by radiologist): MIP and/or 3D reconstructed images were created by the technologist. Radiation optimization: All CT scans at this facility use at least one of these dose optimization techniques: automated exposure control; mA and/or kV adjustment per patient size (includes targeted exams where dose is matched to clinical indication); or iterative reconstruction. Contrast material: OMNIPAQUE 350; Contrast volume: 100 ml; Contrast route: INTRAVENOUS (IV); COMPARISON: CT angio chest PE protcl [id number] 09/08/2024 8:25 AM RADIATION DOSE METRICS: Total DLP (mGy-cm): 448.65 FINDINGS: Right common carotid artery: Calcified plaques at the right common carotid bulb with mild stenosis. No significant stenosis. No dissection or occlusion. Right internal carotid artery: Calcified and noncalcified plaques along the intracranial segment of the right internal carotid artery with moderate stenosis. No dissection or occlusion. Right external carotid artery: No occlusion or stenosis of the origin. Left common carotid artery: Calcified plaques at the left common carotid bulb with mild stenosis, No significant stenosis. No dissection or occlusion. Left internal carotid artery: Calcified and noncalcified plaques along the intracranial segment of the left internal carotid artery with moderate stenosis. No dissection or occlusion. Left external carotid artery: No occlusion or stenosis of the origin. Right vertebral artery: No stenosis. No dissection or occlusion. Left vertebral artery: No stenosis. No dissection or occlusion. Dominant left vertebral artery. Soft tissues: Normal. No significant soft tissue swelling. Bones/joints: No acute fracture. CT/CT angio headneck* [id number] IMPRESSION: 1. No large vessel occlusion or dissection. 2. No opacification of the right A1 segment of the anterior cerebral artery. The right A2 segment of the anterior cerebral artery is well opacified via the anterior communicating artery. IMPRESSION: 1. Moderate bilateral carotid stenosis along the intracranial segments of the left and right ICAs. 2. No large vessel occlusion or severe stenosis. REFERENCES: NASCET CRITERIA. The degree of stenosis in the cervical segment of the internal carotid artery is based on NASCET criteria. Normal is no stenosis. Mild is less than 50% stenosis. Moderate is 50-69% stenosis. Severe is 70% to 99% stenosis. Total occlusion is no detectable patent lumen.
[2024-12-26 09:44] LABS: Glucose Point of Care 88 mg/dL (70-110)
[2024-12-26 09:49] LABS: Basophils # 0.1 10^3/uL (0.0-0.1); Basophils % 1.2 %; Eosinophils # 0.8 10^3/uL (0.0-0.8); Eosinophils % 17.3 %; Hematocrit 44.2 % (37-53); Lymphocytes # 0.8 10^3/uL (0.8-4.8); Lymphocytes % 15.8 %; Mean Corpuscular HGB Conc 33.7 g/dL (30-55); Mean Corpuscular Hemoglobin 32.2 pg (27-33); Mean Corpuscular Volume 95.5 fl (82-101); Mean Platelet Volume 9.5 fL (7.4-10.4); Monocytes # 0.6 10^3/uL (0.2-0.9); Monocytes % 11.6 %; Neutrophils # 2.59 10^3/uL (1.8-7.7); Neutrophils % 53.9 %; Nucleated Red Blood Cells % 0 %; Platelet Count 141 10^3/cmm (157-399); Red Blood Count 4.63 10^6/uL (3.85-5.65); Red Cell Distribution Width 14.3 % (12.1-15.1); White Blood Count 4.81 10^3/uL (3.29-11.43)
[2024-12-26 09:54] LABS: INR 1.01 (0.8-1.2)
--- NOTE | 2024-12-26 09:55 | W.ED.AMS ---
HPI - Altered Mental Status General: Chief Complaint: Altered Mental Status Stated Complaint: AMS Time Seen by Provider: 12/26/24 09:38 Source: patient and EMS Mode of arrival: EMS Limitations: no limitations History of Present Illness: 84-year-old male has a history of a stroke in the past with significant right-sided deficits from the stroke. Per EMS family states that he has been more altered and weak than normal since yesterday. States that this morning they are have a hard time getting him up and that he was not talking. Patient is now awake and alert and answering my questions able to tell me the year his name and where he is at. Denies any headache Related Data Home Medications ?Medication ?Instructions ?Recorded ?Confirmed acetaminophen 325 mg tablet 650 mg PO DAILY PRN Pain 07/30/22 12/26/24 (Tylenol) paroxetine HCl 20 mg tablet 20 mg PO DAILY 09/08/24 12/26/24 metoprolol tartrate 25 mg tablet 25 mg PO BID 12/26/24 12/26/24 Previous Rx's ?Medication ?Instructions ?Recorded aspirin 81 mg tablet,delayed 81 mg PO DAILY #30 tabs 07/30/22 release pantoprazole 40 mg tablet,delayed 40 mg PO BID #180 tabs 04/21/24 release levetiracetam 500 mg tablet 500 mg PO BID #60 tabs 07/15/24 (Keppra) methenamine hippurate 1 gram tablet 1 g PO BID Recurrent UTI #60 tabs 07/23/24 tamsulosin 0.4 mg capsule 0.4 mg PO DAILY #90 caps 09/20/24 lorazepam 0.5 mg tablet 0.5 mg PO DAILY PRN Insomnia #30 12/14/24 tabs Allergies Allergy/AdvReac Type Severity Reaction Status Date / Time sulfamethoxazole (From Allergy Severe kidney Verified 12/06/24 13:28 Bactrim) failure trimethoprim (From Bactrim) Allergy Severe kidney Verified 12/06/24 13:28 failure Review of Systems Const: Denies: fever(s), chills, body aches or change in appetite Eyes: Denies: blurry vision ENMT: Denies: throat pain or dental pain Card: Denies: chest pain Resp: Denies: dyspnea GI: Denies: abdominal pain, nausea, vomiting or diarrhea Musc: Denies: neck pain or back pain Skin/Breast: Denies: rash Neuro: Reports: confusion; Denies: headache(s) PFSH ED PFSH: Medical History Aortic stenosis Urinary retention Osteoarthritis of right knee Iron deficiency anemia Aortic regurgitation Ascending aorta dilatation CVA (cerebral vascular accident) CVA in 2014 Arteriosclerosis Dyslipidemia Essential hypertension Surgical History History of hernia surgery History of resection of small bowel Family History Mother , at age 90 Healthy adult Father , at age 62 Cancer Lung Other CAD (coronary artery disease) Hyperlipidemia Hypertension Denies family history of Diabetes Clotting disorder Dementia Psychiatric illness Chronic kidney disease (CKD) Suicide Anesthesia complication Bleeding disorder Family history of premature coronary artery disease Lung disease Stroke Social History Smoking and tobacco/nicotine status: never used tobacco/nicotine Second hand smoke exposure: No Alcohol intake: current Alcohol intake frequency: few times a month Substance/Drug Use: never Adopted: No Marital status: Current occupational status: retired Physical Exam Const: COMMON NORMALS: no acute distress, patient oriented x3 and healthy appearing HENMT: COMMON NORMALS: normocephalic and atraumatic HEAD & SCALP: normocephalic and atraumatic Neck/C-Spine: COMMON NORMALS: full ROM and supple Chest: COMMONS NORMALS: normal inspection of the chest Resp: COMMON NORMALS: normal respiratory effort, No retractions, No use of accessory muscles and clear to auscultation bilaterally AUSCULTATION: clear to auscultation bilaterally Cardio: COMMON NORMALS: regular rate, regular rhythm and No murmurs present (Cardio) RATE: regular rate RHYTHM: regular rhythm Extremity: COMMON NORMALS: normal to inspection and full ROM Neuro: COMMON NORMALS: patient oriented x3 OTHER: Right sided deficit noted from previous stroke Psych: COMMON NORMALS: mental status grossly normal, Normal thought process present and cooperative THOUGHT PROCESS: Normal thought process present Skin: COMMON NORMALS: no rashes or lesions noted and no wounds GENERAL SKIN EXAM: no rashes or lesions noted Course Vital Signs: Vital signs: Vital Signs Temperature 98.1 F 12/26/24 09:36 Pulse Rate 66 12/26/24 09:36 Respiratory Rate 18 12/26/24 09:36 Blood Pressure 147/85 12/26/24 09:36 Pulse Oximetry 99 12/26/24 09:36 Oxygen Delivery Me thod Room Air 12/26/24 09:36 MDM - Altered Mental Status Medical Decision Making Patient presents here with altered mental status along with generalized weakness he is awake and alert answering questions for me he had a large stroke in the past seems to be at his baseline family states he seems to be a little weaker than normal and may be more slurred last known normal was yesterday he is not a lytic candidate CTA showed no large vessel occlusion Medical Records I reviewed the patient's medical records. Lab Data I reviewed the patient's lab results. 12/26/24 09:36 12/26/24 09:36 Radiology Impressions Chest X-Ray 12/26/24 09:39 IMPRESSION: 1. Left lower lung base atelectatic lung changes. 2. Emphysematous lung changes. Head CT 12/26/24 09:39 IMPRESSION: No acute intracranial abnormality. Head/Neck CTA 12/26/24 09:39 IMPRESSION: 1. No large vessel occlusion or dissection. 2. No opacification of the right A1 segment of the anterior cerebral artery. The right A2 segment of the anterior cerebral artery is well opacified via the anterior communicating artery. IMPRESSION: 1. Moderate bilateral carotid stenosis along the intracranial segments of the left and right ICAs. 2. No large vessel occlusion or severe stenosis. REFERENCES: NASCET CRITERIA. The degree of stenosis in the cervical segment of the internal carotid artery is based on NASCET criteria. Normal is no stenosis. Mild is less than 50% stenosis. Moderate is 50-69% stenosis. Severe is 70% to 99% stenosis. Total occlusion is no detectable patent lumen. Laboratory Results WBC 4.81 10^3/uL (3.29-11.43) 12/26/24 09:36 RBC 4.63 10^6/uL (3.85-5.65) 12/26/24 09:36 Hgb 14.90 g/dL (11.27-16.99) 12/26/24 09:36 Hct 44.2 % (37-53) 12/26/24 09:36 MCV 95.5 fl (82-101) 12/26/24 09:36 MCH 32.2 pg (27-33) 12/26/24 09:36 MCHC 33.7 g/dL (30-55) 12/26/24 09:36 RDW 14.3 % (12.1-15.1) 12/26/24 09:36 Plt Count 141 10^3/cmm (157-399) L 12/26/24 09:36 MPV 9.5 fL (7.4-10.4) 12/26/24 09:36 Neut % (Auto) 53.9 % 12/26/24 09:36 Lymph % (Auto) 15.8 % 12/26/24 09:36 [place] % (Auto) 11.6 % 12/26/24 09:36 Eos % (Auto) 17.3 % 12/26/24 09:36 Baso % (Auto) 1.2 % 12/26/24 09:36 Neut # (Auto) 2.59 10^3/uL (1.8-7.7) 12/26/24 09:36 Lymph # (Auto) 0.8 10^3/uL (0.8-4.8) 12/26/24 09:36 [place] # (Auto) 0.6 10^3/uL (0.2-0.9) 12/26/24 09:36 Eos # (Auto) 0.8 10^3/uL (0.0-0.8) 12/26/24 09:36 Baso # (Auto) 0.1 10^3/uL (0.0-0.1) 12/26/24 09:36 Nucleated RBC % (auto) 0 % 12/26/24 09:36 Nucleated RBCs # 0.0 /100WBC 12/26/24 09:36 PT 14.00 SECONDS (12.1-14.9) 12/26/24 09:36 INR 1.01 (0.8-1.2) 12/26/24 09:36 Sodium 139 mmol/L (136-145) 12/26/24 09:36 Potassium 4.0 mmol/L (3.5-5.1) 12/26/24 09:36 Chloride 104 mmol/L (98-107) 12/26/24 09:36 Carbon Dioxide 24 mmol/L (22-29) 12/26/24 09:36 Anion Gap 15.0 (5-19) 12/26/24 09:36 BUN 15 mg/dL (8-23) 12/26/24 09:36 Creatinine 0.7 mg/dL (0.7-1.2) 12/26/24 09:36 GFR Calculation Not Reportable 12/26/24 09:36 Glucose 88 mg/dL (65-115) 12/26/24 09:36 POC Glucose 88 mg/dL (70-110) 12/26/24 09:40 Calculated Osmolality 288 mOsm/kg (285-295) 12/26/24 09:36 Calcium 9.3 mg/dL (8.5-10.5) 12/26/24 09:36 Total Bilirubin 1.1 mg/dL (0.15-1.2) 12/26/24 09:36 AST 13 U/L (0-40) 12/26/24 09:36 ALT 6 U/L (0-41) 12/26/24 09:36 Alkaline Phosphatase 146 U/L (40-130) H 12/26/24 09:36 Total Protein 6.6 g/dL (6.6-8.7) 12/26/24 09:36 Albumin 4.0 g/dL (3.5-5.2) 12/26/24 09:36 Globulin 2.6 g/dL (1.3-4.6) 12/26/24 09:36 Urine Color Yellow (Yellow) 12/26/24 09:50 Urine Appearance Clear (CLEAR) 12/26/24 09:50 Urine pH 5.5 (5-7) 12/26/24 09:50 Ur Specific [place] 1.018 (1.005-1.030) 12/26/24 09:50 Urine Protein Negative (Negative) 12/26/24 09:50 Urine Glucose (UA) Negative (Normal) 12/26/24 09:50 Urine Ketones Negative (Negative) 12/26/24 09:50 Urine Blood Negative (Negative) 12/26/24 09:50 Urine Nitrate Negative (Negative) 12/26/24 09:50 Urine Bilirubin Negative (Negative) 12/26/24 09:50 Urine Urobilinogen 0.2 mg/dL (Negative) 12/26/24 09:50 Ur Leukocyte Esterase Negative (Negative) 12/26/24 09:50 Urine RBC 0-2 /hpf (0-2) 12/26/24 09:50 Urine WBC 0-5 /hpf (0-5) 12/26/24 09:50 Ur Squamous Epith Cells 0-5 /hpf (0-5) 12/26/24 09:50 Amorphous Sediment Not Reportable 12/26/24 09:50 Urine Bacteria None seen /hpf (NONE) 12/26/24 09:50 Hyaline Casts 1.21 /lpf 12/26/24 09:50 All radiology interpretation(s) finalized by discharge EKG Data EKG 1: I personally reviewed and interpreted this EKG as follows: EKG interpretation date: 12/26/24 EKG interpretation time: 09:38 Interpretation: afib hr [address] elevation qrs 102 qtc 412 Discharge Plan Discharge Patient Disposition: Admitted As Inpatient Clinical Impression: Altered mental status, Generalized weakness Condition: Stable Prescriptions: No Action pantoprazole 40 mg tablet,delayed release (DR/EC) 40 mg PO BID Qty: 180 3RF levetiracetam [Keppra] 500 mg tablet 500 mg PO BID Qty: 60 5RF methenamine hippurate 1 gram tablet 1 g PO BID Qty: 60 12RF Rx Instructions: 1 pill twice a day with 1 g vitamin C each dose Start after completing Macrobid tamsulosin 0.4 mg capsule 0.4 mg PO DAILY Qty: 90 3RF Rx Instructions: take 1 capsule BY MOUTH EVERY DAY lorazepam 0.5 mg tablet 0.5 mg PO DAILY PRN (Reason: Insomnia) Qty: 30 5RF acetaminophen [Tylenol] 325 mg Tablet 650 mg PO DAILY PRN (Reason: Pain) aspirin 81 mg tablet,delayed release (DR/EC) 81 mg PO DAILY Qty: 30 0RF metoprolol tartrate 25 mg tablet 25 mg PO BID Rx Instructions: TAKE 1 TABLET BY MOUTH TWICE DAILY paroxetine HCl 20 mg tablet 20 mg PO DAILY Rx Instructions: TAKE 1 TABLET BY MOUTH EVERY DAY FOR MOOD Referrals: Sammy Cai DO [Primary Care Provider] - Patient Instructions: Altered Mental Status (ED) Print Language: Polish Coding Level of Care Code ED Anesthesiologist Assistant for Bennettg Anshul
[2024-12-26 09:56] LABS: Bilirubin Urine Negative (Negative); Blood Urine Negative (Negative); Glucose Urine UA Negative (Normal); Ketones Urine Negative (Negative); Leukocyte Esterase Urine Negative (Negative); Nitrate Urine Negative (Negative); Protein Urine Negative (Negative); Specific Gravity, Urine 1.018 (1.005-1.030); Urine Appearance Clear (CLEAR); Urine Color Yellow (Yellow); Urobilinogen Urine 0.2 mg/dL (Negative); pH Urine 5.5 (5-7)
[2024-12-26 09:59] LABS: Alanine Aminotransferase 6 U/L (0-41); Alkaline Phosphatase 146 U/L (40-130); Aspartate Amino Transferase 13 U/L (0-40); Blood Urea Nitrogen 15 mg/dL (8-23); Calcium 9.3 mg/dL (8.5-10.5); Carbon Dioxide 24 mmol/L (22-29); Chloride 104 mmol/L (98-107); Creatinine Clr Calc Pharmacy 67.2679; Globulin 2.6 g/dL (1.3-4.6); Glucose 88 mg/dL (65-115); Osmolality Calculated 288 mOsm/kg (285-295); Sodium 139 mmol/L (136-145); Total Bilirubin 1.1 mg/dL (0.15-1.2); Total Protein 6.6 g/dL (6.6-8.7)
[2024-12-26 10:01] LABS: Add Urine Microscopic? YES; Bacteria Urine None Seen /hpf; Hyaline Casts Urine 1.21 /lpf; RBC Urine 0-2 /hpf (0-2); Squamous Epithelial Cell Urine 0-5 /hpf (0-5); WBC Urine 0-5 /hpf (0-5)
[2024-12-26 10:11] LABS: UA Slide Review UA Slide Review Perf
[2024-12-26 10:42] VITALS: PULSE 60; O2SAT 95
[2024-12-26] MEDS: aspirin 81 mg Chew Tablet 324 MG PO (11:20)
--- NOTE | 2024-12-26 12:26 | PC.NURSE ---
Med-Surg unable to take report d/t nurse being at lunch.
[2024-12-26 12:30] VITALS: BP 129/82; PULSE 65; RESP 17; O2SAT 95
[2024-12-26 13:18] VITALS: BP 139/81; PULSE 65; O2SAT 100
[2024-12-26] MEDS: sodium chloride 0.9% 500 ML IV (14:04)
--- NOTE | 2024-12-26 14:59 | PM.HP ---
Providers/Chief Complaint Admitting Physician: Lisa Watkins MD Primary Care Provider: Sammy Cai DO Chief Complaint: AMS History of Present Illness Chico Whatley is a 84 year old male with past medical history of stroke, atrial fibrillation, depression, right sided weakness chronic, BPH, presenting to the hospital for confusion altered mental status, lethargy, slurred speech. Last known normal was yesterday evening. Patient's and son are at bedside who provide most of the history. They state he has been having a lot of congestion and normally his heart rate is in the 90s however this morning they noticed his heart rate dropped from 90 to 80-70 to 60s. This is never happened before. There were quite worried about him because of that. They took him to urgent care today since patient has been coughing a lot. She states when the heart rate was dropping he also complained of some left-sided numbness in her hand. 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 Last known normal yesterday evening around 8:30 PM. In the ED he had a complete stroke workup done. Head CT, CTA head and neck negative for acute pathology at this time. CT head does show chronic changes from prior. EKG shows atrial fibrillation rate controlled. Chest x-ray unremarkable. Urinalysis unremarkable, labs unremarkable. Additionally patient'S states that he has been having diarrhea for the last 3 days. Unknown etiology at this time. He has also been coughing up a lot of phlegm. She is unsure if there is postnasal drip. Patient does appear to be dehydrated with dry mucous membranes and dry tongue. He is not confused at this time knows Dominique is the president and is lying in bed able to answer questions and follow commands. At baseline he is able to stand for a few seconds with assistance and uses a wheelchair. He is unable to ambulate on his own. Medications/Allergies Home Medications ?Medication ?Instructions ?Recorded ?Confirmed ?Last Taken ?Type acetaminophen 325 mg tablet 650 mg PO DAILY PRN Pain 07/30/22 12/26/24 07/30/22 History (Tylenol) aspirin 81 mg tablet,delayed 81 mg PO DAILY #30 tabs 07/30/22 12/26/24 Unknown Rx release pantoprazole 40 mg tablet,delayed 40 mg PO BID #180 tabs 04/21/24 12/26/24 Unknown Rx release levetiracetam 500 mg tablet 500 mg PO BID #60 tabs 07/15/24 12/26/24 Unknown Rx (Keppra) methenamine hippurate 1 gram tablet 1 g PO BID Recurrent UTI #60 tabs 07/23/24 12/26/24 Unknown Rx paroxetine HCl 20 mg tablet 20 mg PO DAILY 09/08/24 12/26/24 Unknown History tamsulosin 0.4 mg capsule 0.4 mg PO DAILY #90 caps 09/20/24 12/26/24 Unknown Rx lorazepam 0.5 mg tablet 0.5 mg PO DAILY PRN Insomnia #30 12/14/24 12/26/24 Unknown Rx tabs metoprolol tartrate 25 mg tablet 25 mg PO BID 12/26/24 12/26/24 Unknown History Allergies Allergy/AdvReac Type Severity Reaction Status Date / Time sulfamethoxazole (From Allergy Severe kidney Verified 12/06/24 13:28 Bactrim) failure trimethoprim (From Bactrim) Allergy Severe kidney Verified 12/06/24 13:28 failure PFSH Acute PFSH: Medical History Aortic stenosis Urinary retention Osteoarthritis of right knee Iron deficiency anemia Aortic regurgitation Ascending aorta dilatation CVA (cerebral vascular accident) CVA in 2014 Arteriosclerosis Dyslipidemia Essential hypertension Surgical History History of hernia surgery History of resection of small bowel Family History Mother , at age 90 Healthy adult Father , at age 62 Cancer Lung Other CAD (coronary artery disease) Hyperlipidemia Hypertension Denies family history of Diabetes Clotting disorder Dementia Psychiatric illness Chronic kidney disease (CKD) Suicide Anesthesia complication Bleeding disorder Family history of premature coronary artery disease Lung disease Stroke Social History Smoking and tobacco/nicotine status: never used tobacco/nicotine Second hand smoke exposure: No Alcohol intake: current Alcohol intake frequency: few times a month Substance/Drug Use: never Adopted: No Marital status: Current occupational status: retired Vitals/I&O/Wt Last Vital Signs Temp 98.1 F 12/26/24 09:36 Pulse 65 12/26/24 13:18 Resp 17 12/26/24 12:30 BP 139/81 12/26/24 13:18 Pulse Ox 100 12/26/24 13:18 O2 Del Method Room Air 12/26/24 13:36 Weight last 48 hrs Weight 68.039 kg Weight 64.41 kg Physical Exam Narrative: General: Alert oriented x3, patient seen laying in bed appearing comfortable at this time. Appears dehydrated, dry tongue, dry mucous membranes. Appears tired and states he is sleepy. HEENT: Normocephalic, atraumatic, EOMI, room air. Cardio: Rate controlled atrial fibrillation, heart rate in 60s. Respiratory: Good bilateral air entry, no wheezes no rhonchi appreciated GI: Abdomen soft, nontender, nondistended, bowel sounds + Extremities: No edema bilateral lower extremities Neuro: Able to move left side, cranial nerves appear to be intact. Right-sided weakness present. Data 12/26/24 09:36 12/26/24 09:36 A&P Assessment and plan (1) Dehydration: (2) CVA (cerebral vascular accident): (3) Altered mental status: (4) Atrial fibrillation: (5) BPH loc w urin obs/LUTS: Plan #Confusion lethargy tiredness, sleepiness #Dehydration #Recent diarrhea #Atrial fibrillation, rate controlled #Concerns for heart rate dropping by family??No true bradycardia reported #History of brain bleed, cerebrovascular accident, stroke, #History of seizure ? Continue Keppra 500 twice daily. She states this was started at [facility] after he had a brain bleed. Most likely for seizure prophylaxis. Actual seizures reported at this time. ? All of the patient's workup done in the ER is negative. I do not believe he is having another stroke. He does have history of stroke from prior. He has been having diarrhea from last few days. Possibility of being antibiotic induced?. Family states he was at urgent care about 2 weeks ago and received a Z-Rashard. Leukocytosis not present. Low suspicion of C. difficile as no leukocytosis present however patient is on Protonix at home which is a risk factor for C. difficile. I will check C. difficile. However will check stool culture. No clear etiology of diarrhea. Denies eating out. He will continue to monitor at this time ? Placed on telemetry and monitor heart rate. ? I will hold metoprolol to tartrate twice daily from home at this time ? Continue Keppra aspirin Protonix. Based on available data physical examination and workup from ER I believe patient may be dehydrated. I will be admitting for observation to place patient on IV fluids at this time. Will order 500 cc normal saline bolus and thereafter started on normal saline 75 to 100 cc an hour for 1 L total. ? Will order PT OT ? Will reevaluate patient in AM. -Further testing may be ordered based on clinical course. -Of note patient does have a history of urinary retention and has required a catheter in the past. I will check bladder scan at this time and order straight cath x 1. If there is evidence of patient retaining urine we will go ahead and place a Hurst. DNR/DNI. As per family paperwork is in the chart. PDMP PDMP Reviewed: Not Reviewed Attestations Medical Necessity Statement*: Observation admission for confusion lethargy tiredness sleepiness, dehydration recent diarrhea. Diagnoses Dehydration E86.0 CVA (cerebral vascular accident) I63.9 Altered mental status R41.82 Atrial fibrillation I48.91 BPH loc w urin obs/LUTS N40.1
[2024-12-26] MEDS: sodium chloride 0.9% 1,000 ML 100 ML IV (15:04)
[2024-12-26] MEDS: pantoprazole DR 40 mg Tablet PO (17:04)
[2024-12-26] MEDS: levETIRAcetam 500 mg Tablet PO (17:04)
[2024-12-26 20:07] VITALS: BP 162/82; PULSE 68; RESP 19; TEMP 36.4; O2SAT 95
[2024-12-26 22:00] VITALS: PULSE 79
[2024-12-27 00:07] VITALS: BP 130/80; PULSE 74; RESP 15; TEMP 36.7; O2SAT 94
[2024-12-27 04:00] VITALS: BP 130/93; PULSE 88; RESP 17; TEMP 36.8; O2SAT 94
[2024-12-27 05:38] VITALS: PULSE 90
[2024-12-27 05:52] LABS: Basophils % 0.8 %; Eosinophils # 0.8 10^3/uL (0.0-0.8); Eosinophils % 14.6 %; Hematocrit 40.7 % (37-53); Lymphocytes # 0.9 10^3/uL (0.8-4.8); Lymphocytes % 16.3 %; Mean Corpuscular HGB Conc 33.9 g/dL (30-55); Mean Corpuscular Hemoglobin 32.3 pg (27-33); Mean Corpuscular Volume 95.3 fl (82-101); Mean Platelet Volume 9.7 fL (7.4-10.4); Monocytes # 0.5 10^3/uL (0.2-0.9); Monocytes % 10.1 %; Neutrophils # 3.04 10^3/uL (1.8-7.7); Neutrophils % 57.8 %; Nucleated Red Blood Cells % 0 %; Platelet Count 142 10^3/cmm (157-399); Red Blood Count 4.27 10^6/uL (3.85-5.65); Red Cell Distribution Width 14.4 % (12.1-15.1); White Blood Count 5.26 10^3/uL (3.29-11.43)
[2024-12-27 06:13] LABS: Anion Gap 15.5 (5-19); Blood Urea Nitrogen 12 mg/dL (8-23); Carbon Dioxide 22 mmol/L (22-29); Chloride 105 mmol/L (98-107); Creatinine Clr Calc Pharmacy 68.1995; Glucose 82 mg/dL (65-115); Magnesium 1.9 mg/dL (1.7-2.3); Osmolality Calculated 287 mOsm/kg (285-295); Phosphorus 2.4 mg/dL (2.5-4.5); Potassium 3.5 mmol/L (3.5-5.1); Sodium 139 mmol/L (136-145)
[2024-12-27 08:00] VITALS: BP 142/87; PULSE 91; RESP 18; TEMP 37.2; O2SAT 94
[2024-12-27] MEDS: pantoprazole DR 40 mg Tablet PO (09:08)
[2024-12-27] MEDS: levETIRAcetam 500 mg Tablet PO (09:08)
[2024-12-27] MEDS: PARoxetine 20 mg Tablet PO (09:08)
[2024-12-27] MEDS: tamsulosin 0.4 mg Capsule PO (09:08)
[2024-12-27] MEDS: aspirin 81 mg EC Tablet PO (09:08)
--- NOTE | 2024-12-27 10:41 | PC.NURSE ---
During AM rounding, this RN is notified by that pt penis is hurting. During assessment, foreskin is retracted and edematous. states that a catheter was placed in ER, but the foreskin was not replaced. This RN notifies Dr. Watkins. Hurst catheter removed - intact. Cool compress placed to penis to help with swelling.
[2024-12-27 12:00] VITALS: BP 148/85; PULSE 85; RESP 18; TEMP 37.2; O2SAT 92
--- NOTE | 2024-12-27 13:07 | PM.DCS ---
Discharge Providers Date of Admission: 12/26/24 11:18 Date of Discharge: December 27, 2024 Attending Provider at Admission: Lisa Watkins MD Attending Provider at Discharge: Lisa Watkins MD Primary Care Provider: Sammy Cai DO Diagnoses at Discharge Discharge Diagnosis (1) Dehydration: Status: Resolved (2) CVA (cerebral vascular accident): Status: Acute (3) Altered mental status: Status: Resolved (4) Atrial fibrillation: Status: Acute (5) BPH loc w urin obs/LUTS: Status: Resolved Reason for Visit Reason for Visit: AMS Hospital Course Hospital Course Please see H&P for further details. Essentially patient was admitted for confusion lethargy tiredness sleepiness. He was having diarrhea for the last few days. Stroke workup was negative in the ER. We admitted him and hydrated him with IV fluids. The next day when seen in the room patient was back to his baseline. Patient's states this this is my and he is back . Hurst catheter was apparently placed in the ER however foreskin was not pulled forward therefore patient developed penile head swelling. Hurst catheter was removed. Foreskin was replaced and warm compresses were applied to the area. Penile swelling improved significantly. He did have mild redness at the proximal end of penile head. I advised patient to apply Desitin extra strength on affected area twice a day. Patient's very happy with patient's progress. She has requested discharge and patient will be going home today. Since all workup was negative and patient is back to his baseline. Patient will be discharged home. Physical Exam Narrative: General: Alert oriented x3, sitting up in bed talking laughing smiling. HEENT: Normocephalic, atraumatic, EOMI, room air. Cardio: Rate controlled atrial fibrillation, heart rate in 60s. Respiratory: Good bilateral air entry, no wheezes no rhonchi appreciated GI: Abdomen soft, nontender, nondistended, bowel sounds + Extremities: No edema bilateral lower extremities Neuro: Able to move left side, cranial nerves appear to be intact. Right-sided weakness present. Discharge Data Studies Completed and Pending Completed Studies During Hospitalization Category Date Time Status CT angio headneck* [id number] Stat Cat Scan 12/26/24 09:[address] head wo con* [id number] Stat Cat Scan 12/26/24 09:39 Completed XR chest 1V portable [id number] Stat Exams 12/26/24 09:39 Completed Radiology Impressions Chest X-Ray 12/26/24 09:39 IMPRESSION: 1. Left lower lung base atelectatic lung changes. 2. Emphysematous lung changes. Head CT 12/26/24 09:39 IMPRESSION: No acute intracranial abnormality. Head/Neck CTA 12/26/24 09:39 IMPRESSION: 1. No large vessel occlusion or dissection. 2. No opacification of the right A1 segment of the anterior cerebral artery. The right A2 segment of the anterior cerebral artery is well opacified via the anterior communicating artery. IMPRESSION: 1. Moderate bilateral carotid stenosis along the intracranial segments of the left and right ICAs. 2. No large vessel occlusion or severe stenosis. REFERENCES: NASCET CRITERIA. The degree of stenosis in the cervical segment of the internal carotid artery is based on NASCET criteria. Normal is no stenosis. Mild is less than 50% stenosis. Moderate is 50-69% stenosis. Severe is 70% to 99% stenosis. Total occlusion is no detectable patent lumen. Laboratory Results WBC 5.26 10^3/uL (3.29-11.43) 12/27/24 04:29 RBC 4.27 10^6/uL (3.85-5.65) 12/27/24 04:29 Hgb 13.80 g/dL (11.27-16.99) 12/27/24 04:29 Hct 40.7 % (37-53) 12/27/24 04:29 MCV 95.3 fl (82-101) 12/27/24 04:29 MCH 32.3 pg (27-33) 12/27/24 04:29 MCHC 33.9 g/dL (30-55) 12/27/24 04:29 RDW 14.4 % (12.1-15.1) 12/27/24 04:29 Plt Count 142 10^3/cmm (157-399) L 12/27/24 04:29 MPV 9.7 fL (7.4-10.4) 12/27/24 04:29 Neut % (Auto) 57.8 % 12/27/24 04:29 Lymph % (Auto) 16.3 % 12/27/24 04:29 [place]oula % (Auto) 10.1 % 12/27/24 04:29 Eos % (Auto) 14.6 % 12/27/24 04:29 Baso % (Auto) 0.8 % 12/27/24 04:29 Neut # (Auto) 3.04 10^3/uL (1.8-7.7) 12/27/24 04:29 Lymph # (Auto) 0.9 10^3/uL (0.8-4.8) 12/27/24 04:29 [place]oul[place] # (Auto) 0.5 10^3/uL (0.2-0.9) 12/27/24 04:29 Eos # (Auto) 0.8 10^3/uL (0.0-0.8) 12/27/24 04:29 Baso # (Auto) 0.0 10^3/uL (0.0-0.1) 12/27/24 04:29 Nucleated RBC % (auto) 0 % 12/27/24 04: Nucleated RBCs # 0.0 /100WBC 12/27/24 04:29 PT 14.00 SECONDS (12.1-14.9) 12/26/24 09:36 INR 1.01 (0.8-1.2) 12/26/24 09:36 Sodium 139 mmol/L (136-145) 12/27/24 04:29 Potassium 3.5 mmol/L (3.5-5.1) 12/27/24 04:29 Chloride 105 mmol/L (98-107) 12/27/24 04:29 Carbon Dioxide 22 mmol/L (22-29) 12/27/24 04:29 Anion Gap 15.5 (5-19) 12/27/24 04:29 BUN 12 mg/dL (8-23) 12/27/24 04:29 Creatinine 0.6 mg/dL (0.7-1.2) L 12/27/24 04:29 GFR Calculation Not Reportable 12/27/24 04:29 Glucose 82 mg/dL (65-115) 12/27/24 04:29 POC Glucose 88 mg/dL (70-110) 12/26/24 09:40 Calculated Osmolality 287 mOsm/kg (285-295) 12/27/24 04:29 Calcium 9.0 mg/dL (8.5-10.5) 12/27/24 04:29 Phosphorus 2.4 mg/dL (2.5-4.5) L 12/27/24 04:29 Magnesium 1.9 mg/dL (1.7-2.3) 12/27/24 04:29 Total Bilirubin 1.1 mg/dL (0.15-1.2) 12/26/24 09:36 AST 13 U/L (0-40) 12/26/24 09:36 ALT 6 U/L (0-41) 12/26/24 09:36 Alkaline Phosphatase 146 U/L (40-130) H 12/26/24 09:36 Total Protein 6.6 g/dL (6.6-8.7) 12/26/24 09:36 Albumin 4.0 g/dL (3.5-5.2) 12/26/24 09:36 Globulin 2.6 g/dL (1.3-4.6) 12/26/24 09:36 Urine Color Yellow (Yellow) 12/26/24 09:50 Urine Appearance Clear (CLEAR) 12/26/24 09:50 Urine pH 5.5 (5-7) 12/26/24 09:50 Ur Specific Clothier 1.018 (1.005-1.030) 12/26/24 09:50 Urine Protein Negative (Negative) 12/26/24 09:50 Urine Glucose (UA) Negative (Normal) 12/26/24 09:50 Urine Ketones Negative (Negative) 12/26/24 09:50 Urine Blood Negative (Negative) 12/26/24 09:50 Urine Nitrate Negative (Negative) 12/26/24 09:50 Urine Bilirubin Negative (Negative) 12/26/24 09:50 Urine Urobilinogen 0.2 mg/dL (Negative) 12/26/24 09:50 Ur Leukocyte Esterase Negative (Negative) 12/26/24 09:50 Urine RBC 0-2 /hpf (0-2) 12/26/24 09:50 Urine WBC 0-5 /hpf (0-5) 12/26/24 09:50 Ur Squamous Epith Cells 0-5 /hpf (0-5) 12/26/24 09:50 Amorphous Sediment Not Reportable 12/26/24 09:50 Urine Bacteria None seen /hpf (NONE) 12/26/24 09:50 Hyaline Casts 1.21 /lpf 12/26/24 09:50 Vitals Last Vital Signs Temp 99.0 F 12/27/24 12:00 Pulse 85 12/27/24 12:00 Resp 18 12/27/24 12:00 BP 148/85 12/27/24 12:00 Pulse Ox 92 12/27/24 12:00 O2 Del Method Room Air 12/27/24 12:00 Discharge Plan Discharge Patient Disposition: Home Condition: Stable Prescriptions: New Diaper Rash 40 % paste 1 applic topical BID PRN (Reason: skin irritation) Qty: 113 0RF Rx Instructions: apply to penis and perineum twice a day as needed Continued pantoprazole 40 mg tablet,delayed release (DR/EC) 40 mg PO BID Qty: 180 3RF levetiracetam [Keppra] 500 mg tablet 500 mg PO BID Qty: 60 5RF methenamine hippurate 1 gram tablet 1 g PO BID Qty: 60 12RF Rx Instructions: 1 pill twice a day with 1 g vitamin C each dose Start after completing Macrobid tamsulosin 0.4 mg capsule 0.4 mg PO DAILY Qty: 90 3RF Rx Instructions: take 1 capsule BY MOUTH EVERY DAY acetaminophen [Tylenol] 325 mg Tablet 650 mg PO DAILY PRN (Reason: Pain) aspirin 81 mg tablet,delayed release (DR/EC) 81 mg PO DAILY Qty: 30 0RF paroxetine HCl 20 mg tablet 20 mg PO DAILY Rx Instructions: TAKE 1 TABLET BY MOUTH EVERY DAY FOR MOOD Changed metoprolol tartrate 25 mg tablet 12.5 mg PO BID Qty: 30 0RF Rx Instructions: TAKE 1 TABLET BY MOUTH TWICE DAILY Held lorazepam 0.5 mg tablet 0.5 mg PO DAILY PRN (Reason: Insomnia) Qty: 30 5RF Hold Instructions: see pcp Discharge Orders: Discharge Order (Routine); Ordered 12/27/24 Ordered By: Lisa Watkins Referrals: Sammy Cai DO [Primary Care Provider] - 1-3 days (We have notified your physician's clinic of the need for a follow-up appointment to be scheduled. If you have not heard from them within the next 2 business days, please call them directly. ) Discharge Diet: Usual diet Discharge Activity: Resume usual activity Patient Instructions: Dehydration - Adult, Weakness (GEN), Altered Mental Status (ED), Altered Mental Status (GEN), Stroke (DC), Opioid Safety, Stroke Stoplight, Benign Prostatic Hypertrophy (BPH) Discharge Attestations Time Spent in Discharge Care*: greater than 30 min Quality Metrics Clinical Quality Measures [ No reported AMI, CVA or VTE this stay] Coding Level of Care Code Acute Code for Chg Fwd Diagnoses Dehydration E86.0 CVA (cerebral vascular accident) I63.9 Altered mental status R41.82 Atrial fibrillation I48.91 BPH loc w urin obs/LUTS N40.1
--- NOTE | 2024-12-27 13:38 | PC.NURSE ---
Pt able to urinate after catheter removed. Bladder emptied.
--- NOTE | 2024-12-27 14:43 | PC.NURSE ---
Pt reports being able to advance foreskin over penis.
[2024-12-27 15:34] VITALS: BP 148/85; PULSE 85; RESP 18; TEMP 37.2; O2SAT 92
--- NOTE | 2024-12-28 08:00 | PC.OT ---
OT EVALUATION ORDERS RECEIVED. PATIENT D/C BEFORE EVALUATION COULD BE ATTEMPTED.
== END 2024-12-27 15:35 | disposition home or self-care (01) ==
LOC: ER 11:35 → MEDSURG 12:18
PROVIDERS: Admitting Provider Internal Medicine; Emergency Provider Emergency Medicine; PCP Family Medicine; Visit Provider Internal Medicine
DX: E86.0 Dehydration (principal); R41.82 Altered mental status, unspecified; I48.91 Unspecified atrial fibrillation; Z79.82 Long term (current) use of aspirin; Z66 Do not resuscitate; N48.89 Other specified disorders of penis; R56.9 Unspecified convulsions; N40.1 Benign prostatic hyperplasia with lower urinary tract symptoms; N13.8 Other obstructive and reflux uropathy; I69.351 Hemiplegia and hemiparesis following cerebral infarction affecting right dominant side; E78.5 Hyperlipidemia, unspecified; R19.7 Diarrhea, unspecified
CPT/HCPCS: 36415; 36416; 70450; 70496; 70498; 71045; 80048; 80053; 81001; 82962; 83735; 84100; 85025; 85610; 93005; 96360; 96361; 99285; G0378; J7030; J7040; J9999

== ENCOUNTER → 2025-03-31 11:02 | Outpatient (BNVA) | payer MEDICARE, OTHER, SELFPAY | PROVIDERS: PCP Family Medicine; Visit Provider Podiatrist Foot & Ankle Surgery | DX: I73.9 Peripheral vascular disease, unspecified (principal); B35.1 Tinea unguium; M21.371 Foot drop, right foot | CPT/HCPCS: 11721 ==

== ENCOUNTER → 2025-05-25 09:24 | Outpatient (BNVA) | payer MEDICARE, OTHER, SELFPAY | PROVIDERS: PCP Family Medicine; Visit Provider Dermatology | DX: L85.3 Xerosis cutis (principal); L57.8 Other skin changes due to chronic exposure to nonionizing radiation; D69.2 Other nonthrombocytopenic purpura; D22.5 Melanocytic nevi of trunk; L82.1 Other seborrheic keratosis; L72.0 Epidermal cyst; D48.5 Neoplasm of uncertain behavior of skin; L57.0 Actinic keratosis | CPT/HCPCS: 11102; 17000; 99203 ==

== ENCOUNTER → 2025-06-09 10:23 | Outpatient (BNVA) | payer MEDICARE, OTHER, SELFPAY | PROVIDERS: PCP Family Medicine; Visit Provider Podiatrist Foot & Ankle Surgery | DX: I73.9 Peripheral vascular disease, unspecified (principal); B35.1 Tinea unguium; L84 Corns and callosities; M21.379 Foot drop, unspecified foot; L89.91 Pressure ulcer of unspecified site, stage 1; M21.371 Foot drop, right foot | CPT/HCPCS: 11721; 99213 ==

== ENCOUNTER 2025-07-22 09:13 | Emergency (ER) | payer MEDICARE, OTHER, SELFPAY ==
--- NOTE | 2025-07-22 09:24 | CT_ITS ---
WS: [id number] CT CERVICAL SPINE HISTORY: Trauma TECHNIQUE: Contiguous 2.0 mm axial imaging performed through the entire cervical spine. Sagittal and coronal reformats also performed. All CT scans at [facility] use at least one of these dose optimization techniques: automated exposure control; mA and/or kV adjustment per patient size (includes targeted exams where dose is matched to clinical indication); or iterative reconstruction. DLP: 1321.98 mGy.cm COMPARISON: None available. Increase in the cervical lordosis. Slight reversal of curvature in the cervical thoracic junction. No change in the configuration since 12/26/2024. Cervical disc spaces are narrowed. Small osteophytes. Facet joints are normally aligned but there is narrowing of the facet joints. Lateral masses of C1 and C2 are aligned. The odontoid is intact. Craniocervical junction is normal. C2-C3: Marked bilateral facet joint arthritis. C3-C4: Bilateral facet joint arthritis, LEFT greater than RIGHT. Mild LEFT foraminal stenosis. C4-C5: Osteophytic ridging with moderate bilateral facet joint arthritis. Mild foraminal stenosis. C5-C6: Osteophytic ridging with foraminal stenosis and facet arthritis. C6-C7: Osteophytic ridging. Mild foraminal stenosis. C7-T1: Mild foraminal stenosis. Lung apices are clear. Carotid artery calcifications. CT/CT cervical spin wo con* [id number] IMPRESSION: 1. No acute cervical fracture. 2. Advanced degenerative changes and facet joint arthropathy and foraminal isak noses as described above. Very similar to the study of 12/26/2024.
[2025-07-22 09:25] VITALS: BP 130/100; PULSE 79; RESP 18; TEMP 36.6; O2SAT 97; BMI 27.3
--- NOTE | 2025-07-22 09:25 | CT_ITS ---
WS: [id number] CT HEAD NONCONTRAST HISTORY: Closed head injury TECHNIQUE: Contiguous axial imaging performed through the brain. Bone and soft tissue windows. Sagittal and coronal reformats reviewed. All CT scans at [facility] use at least one of these dose optimization techniques: automated exposure control; mA and/or kV adjustment per patient size (includes targeted exams where dose is matched to clinical indication); or iterative reconstruction. DLP: 1321.98 mGy.cm COMPARISON: 12/26/2024 No acute intracranial hemorrhage, midline shift or mass effect. Moderate to severe atrophy and small vessel disease. Multiple chronic lacunar infarcts in the basal ganglia and bustillos radiata. No acute infarct. Ventricles: Ventricles are markedly dilated on the basis of atrophy. Mild dilatation of the temporal horns. No inferior displacement of the cerebellar tonsils. Paranasal sinuses: Small air-fluid levels in the maxillary sinuses. Moderate mucoperiosteal thickening in the ethmoid air cells. Mastoid air cells: Well pneumatized. Calvarium and scalp: Skull is intact with no soft tissue edema or swelling. CT/CT head wo con* [id number] IMPRESSION: 1. No acute intracranial hemorrhage or edema. 2. Moderate to severe atrophy with small vessel disease. Numerous lacunar infa rcts are stable. 3. Chronic ventriculomegaly on the basis of atrophy.
--- OUTSIDE RECORDS SUMMARY | 2025-07-22 09:32 | XMS_ITS | Encounter Summary ---
Author Organization [facility] Address [address] [place] [address] Care Team Providers Care Coordinator Of Genetic Services Name Role Phone Willie Floyd MD Primary Care Provider [phone] Encounter Details Date Type Department Care Team (Latest Contact Info) Description 09/14/1999 Outpatient Historical [facility] [place] [address] [place] [address] Willie Floyd MD [address] [place] [address] Unspecified essential hypertension (Primary Dx); Contact dermatitis and other eczema, due to unspecified cause Social History Tobacco Use Types Packs/Day Years Used Date Smoking Tobacco: Never Assessed Sex and Gender Information Value Date Recorded Sex Assigned at Not on file 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
--- OUTSIDE RECORDS SUMMARY | 2025-07-22 09:32 | XMS_ITS | Encounter Summary ---
Author Organization [facility] Address [address] [place] [address] Care Team Providers Care Critical Care Technician Name Role Phone Willie Floyd MD Primary Care Provider Encounter Details Date Type Department Care Team (Late st Contact Info) Description 04/05/[address] 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 Gender Identity Not on file Sexual Orientation Not on file documented as of this encounter Plan of Treatment Not on file documented as of this encounter Procedures Procedure Name Priority Date/Time Associated Diagnosis Comments PATHOLOGY Routine 04/30/2008 7:08 AM CDT documented in this encounter Results * PATHOLOGY (04/30/2008 7:08 AM CDT) PATHOLOGY/CYT OLOGY REPORT [facility] [address] [facility] [address] [id number] Collected: 04/30/2008 7:08:00 AM SURGICAL PATHOLOGY FINAL REPORT Diagnosis A. Colon, cecum, biopsy - hyperplastic polyp. B. Colon, sigmoid, biopsy - adenomatous polyp. Yan Avila M.D. (Electronically signed by) Verified: 05/03/08 SEC/SEC Clinical Information Polyps. Specimen Source AColon, CECUM BColon, SIGMOID Microscopic Description Microscopic examination was performed. Gross Description Part A. Received in formalin labelled Phylicia, cecum polyp is a 0.15 cm wakefield tissue fragment. Submitted entirely in cassette A1. Part B. Received in formalin labelled Phylicia, sigmoid colon polyp is a 0.25 cm wakefield tissue fragment. Submitted entirely in cassette B1. RLS/DJT INTERFACE SYSTEM 04/30/2008 7:08 AM CDT Braden Monterroso MD PATHOLOGY/CYTOLOGY ORDERABLES Final Result INTERFACE SYSTEM Refer to clinic/hospital department documented in this encounter Visit Diagnoses Not on filedocumented in this encounter Care Teams Critical Care Technician Relationship Specialty Start Date End Date Willie Floyd MD PCP - General 03/31/08 documented as of this encounter
--- OUTSIDE RECORDS SUMMARY | 2025-07-22 09:32 | XMS_ITS | Encounter Summary ---
Author Organization [facility] Address [address] [place] [address] Care Team Providers Care Silica Spray Mixer Name Role Phone Willie Floyd MD Primary Care Provider [phone] Encounter Details Date Type Department Care Team (Latest Contact Info) Description 01/25/2006 Outpatient Historical [facility] [place] [address] [place] [address] Willie Floyd MD [address] [place] [phone] Routine Medical Exam (Primary Dx) Social History Tobacco Use Types Packs/Day Years Used Date Smoking Tobacco: Never Assessed Sex and Gender Information Value Date Recorded Sex Assigned at Not on file 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
--- OUTSIDE RECORDS SUMMARY | 2025-07-22 09:32 | XMS_ITS | Clinical Summary ---
Author Organization [facility] [place] Address [address] [place] [address] Phone Care Team Providers Care Money Market Dealer Name Role Phone Willie Floyd MD Primary Care Provider [phone] Allergies No known active allergies Medications ADVIL PM 200-25 mg Oral Cap Take 2 Tabs by mouth nightly as needed. Active doxazosin (CARDURA) 2 mg tablet Take 1 Tab by mouth daily. 90 Tab 3 3 Active LORazepam (ATIVAN) 0.5 mg tablet Take 1 Tab by mouth every 8 hours as needed for Anxiety. 50 Tab 2 3 Active aspirin (ASPIRIN LOW DOSE) 81 mg Tablet, Delayed Release (E.C.) Take 1 Tab by mouth daily. 100 Tab 3 4 Active fluticasone (FLONASE) 50 mcg/spray [place], Suspension Administer 2 Sprays in each nostril daily. 1 Gram 12 4 Active pantoprazole (PROTONIX) 40 mg Tablet, Delayed Release (E.C.) TAKE 1 TABLET BY MOUTH EVERY DAY 30 Tab 2 4 Active mometasone (ELOCON) 0.1 % Cream APPLY TO THE AFFECTED AREA DAILY 45 Gram 0 4 Active diltiazem (DILACOR XR) 240 mg Extended Release capsule TAKE 1 CAPSULE BY MOUTH DAILY 90 Capsule 3 5 Active Active Problems Problem Noted Date Diagnosed Date HTN (hypertension) 10/21/2009 Allergic rhinitis 2008 Generalized anxiety disorder 08/27/2008 Dysphagia 04/01/2008 Immunizations Immunization Administration Dates Next Due (PNEUMOVAX 23)(50 YRS UP) PN EUMOCOCCAL POLYSACCHARIDE (PPV23) 0.5 ML, IM 06/11/2008 Influenza Seasonal Unspecified Formulation IM ,07/07/2012 Family History Medical History Relation Name Comments Healthy Brother 1 Healthy Brother 2 Lung Cancer Father Hypertension Paternal Grandfather Healthy Sister Colon Cancer Neg Hx Relation Name Status Comments Brother 1 Alive Brother 2 Alive Father age 62, lung ca ncer, heavy smoker Maternal Grandfather Maternal Grandmother Mother Alive Paternal Grandfather Paternal Grandmother Sister Alive Son Alive Social History Tobacco Use Types Packs/Day Years Used Date Smoking Tobacco: Former Cigarettes 1.5 15 0 10/07/1968 - 10/07/1983 Smokeless Tobacco: Never Alcohol Use Standard Drinks/Week Comments Yes 15.8 (1 standard drink = 0.6 oz pure alcohol) aprox 2 cans beer per day Sex and Gender Information Value Date Recorded Sex Assigned at Not on file 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 Gender Identity Not on file Sexual Orientation Not on file Occupation Industry Job Start Date Job End Date Not on file Not on file Not on file Not on file Last Filed Vital Signs Vital Sign Reading Time Taken Comments Blood Pressure 134/80 11/13/2013 10:41 AM HEBREW PROFESSOR Pulse 90 11/13/2013 10:41 AM HEBREW PROFESSOR Temperature 36.5 C (97.7 F) 11/13/2013 10:41 AM HEBREW PROFESSOR Respiratory Rate 20 11/13/2013 10:41 AM HEBREW PROFESSOR Oxygen Saturation 97% 11/13/2013 10:41 AM HEBREW PROFESSOR Inhaled Oxygen Concentration - - Weight 85.3 kg (188 lb) 11/13/2013 10:41 AM HEBREW PROFESSOR Height 172.7 cm (5' 8 ) 11/13/2013 10:41 AM HEBREW PROFESSOR Body Mass Index 28.59 11/13/2013 10:41 AM HEBREW PROFESSOR Plan of Treatment Health Maintenance Due Date Last Done Comments DTAP/TDAP/TD VACCINES (1 - Tdap) 1961 ZOSTER VACCINE (1 of 2) 1992 PNEUMOCOCCAL VACCINE 50+ YEA RS (2 of 2 - PCV) 06/11/2009 06/11/2008 RSV VACCINE (60+ or ) (1 - 1-dose 75+ series) 2017 COLORECTAL SCREENING 05/04/2018 05/04/2013, 04/24/2013, 02/23/2010, Additional history exists INFLUENZA VACCINE (#1) 2025 08/09/2013, 2011 Procedures Procedure Name Priority Date/Time Associated Diagnosis Comments ENDOSCOPY, COLON, SCREENING Routine 04/30/2008 Special Screening for Malignant Neoplasms, Colon from Last 3 Months or Most Recently Relevant to Health Maintenance Results * ENDOSCOPY, COLON, MEDICARE SCREENING (04/30/2008) us Willie Floyd MD GI PROCEDURE ORDERABLES Final R esult from Last 3 Months or Most Recently Relevant to Health Maintenance [place] [address] [place] [id number] MEDICARE PART A AND B [facility] Advance Directives For more information, please contact: [phone] * Full Code (Latest Code Status on File) Date Activated Date Inactivated Comments 04/24/2013 7:42 AM 04/24/2013 11:22 AM * Full Code Date Activated Date Inactivated Comments 02/23/2010 11:17 AM 02/24/2010 2:31 AM * Full Code Date Activated Date Inactivated Comments 11/25/2009 10:26 AM 2009 2:01 AM Care Teams Money Market Dealer Relationship Specialty Start Date End Date Willie Floyd MD PCP - General 03/31/08
--- OUTSIDE RECORDS SUMMARY | 2025-07-22 09:32 | XMS_ITS | Encounter Summary ---
Author Organization [facility] Address [address] [place] [address] Care Team Providers Care Machine Joint Cutter Name Role Phone Willie Floyd MD Primary Care Provider [phone] Encounter Details Date Type Department Care Team (Latest Contact Info) Description 03/14/2007 Outpatient Historical [facility] [place] [address] [place] [address] Willie Floyd MD [address] [place] [phone] Unspecified Essential Hypertension (Primary Dx); Edema; Nocturia Social History Tobacco Use Types Packs/Day Years Used Date Smoking Tobacco: Never Assessed Sex and Gender Information Value Date Recorded Sex Assigned at Not on file Legal Sex Male 2:52 AM RN REGISTRY Gender Identity Not on file Sexual Orientation Not on file documented as of this encounter Plan of Treatment Not on file documented as of this encounter Visit Diagnoses Diagnosis Unspecified essential hypertension- Primary Edema Nocturia documented in this encounter Care Teams Machine Joint Cutter Relationship Specialty Start Date End Date Willie Floyd MD PCP - General 03/31/08 documented as of this encounter
--- OUTSIDE RECORDS SUMMARY | 2025-07-22 09:32 | XMS_ITS | Encounter Summary ---
Author Organization [facility] Address [address] [place] [address] Care Team Providers Care Cranberry Bog Supervisor Name Role Phone Willie Floyd MD Primary Care Provider [phone] Encounter Details Date Type Department Care Team (Latest Contact Info) Description 04/12/2000 Outpatient Historical [facility] [place] [address] [place] [address] Willie Floyd MD [address] [place] [address] Routine medical exam (Primary Dx); Impacted cerumen; Unspecified essential hypertension Social History Tobacco Use Types Packs/Day Years Used Date Smoking Tobacco: Never Assessed Sex and Gender Information Value Date Recorded Sex Assigned at Not on file 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
--- OUTSIDE RECORDS SUMMARY | 2025-07-22 09:32 | XMS_ITS | Encounter Summary ---
Author Organization [facility] Address [address] [place] [address] Care Team Providers Care Commercial Pest Control Technician Name Role Phone Willie Floyd MD Primary Care Provider [phone] Encounter Details Date Type Department Care Team (Late st Contact Info) Description 04/12/2000 Outpatient Historical [facility] Willie Floyd MD [address] [place] [address] Routine medical exam (Primary Dx); Special screening for malignant neoplasms of other sites Social History Tobacco Use Types Packs/Day Years Used Date Smoking Tobacco: Never Assessed Sex and Gender Information Value Date Recorded Sex Assigned at Not on file 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
--- OUTSIDE RECORDS SUMMARY | 2025-07-22 09:32 | XMS_ITS | Clinical Summary ---
Author Organization [facility] Address [address] [facility] Attn: [place] [address] Care Team Providers Care Back Order Clerk Name Role Phone Unavailable Primary Care Provider Unavailabl e Allergies No known active allergies Medications LORazepam (ATIVAN) 0.5 mg tabletIndicatio ns:Insomnia, unspecified type Take 1 Tablet (0.5 mg) by mouth daily at bedtime. 30 Tablet 05/29/20 22 Active pantoprazole (PROTONIX) 40 mg Tablet, Delayed Release (E.C.) Take 1 Tablet (40 mg) by mouth every 12 hours. 60 Tablet 05/29/20 22 Active polyethylene glycol (MIRALAX) 17 gram Powder in Packet Take 1 Packet (17 Grams) by mouth 1 time daily as needed for Constipation. 30 Packet 05/29/20 22 Active sennosides-docu sate sodium (SENNA-S) 8.6-50 mg tablet Take 1 Tablet by mouth daily. 30 Tablet 05/29/20 22 Active tamsulosin (FLOMAX) 0.4 mg capsule Take 1 Capsule (0.4 mg) by mouth daily at bedtime. 30 Capsule 05/29/20 22 Active acetaminophen (TYLENOL) 325 mg tablet Take 2 Tablets (650 mg) by mouth every 4 hours. 120 Tablet 1 05/29/20 Active diclofenac sodium (VOLTAREN) 1 % gel Apply 2 Grams to affected area 2 times daily. 100 Gram 08/23/20 22 Active fluticasone propionate (FLONASE) 50 mcg/spray [place], Suspension nasal inhaler Administer 2 Sprays in each nostril daily. 16 Gram 05/29/20 Active lidocaine (XYLOCAINE) 2 % jelly Apply 5 mL to affected area every 6 hours as needed for Pain, Mild (penile). 30 mL 05/29/20 Active guaiFENesin (MUCINEX) 600 mg Extended Release Biphasic tablet Take 1 Tablet (600 mg) by mouth every 12 hours as needed for Other (See Comment) (Cough, congestion,). 60 Tablet 05/29/20 Active Lidocaine 4 % Adhesive Patch, Medicated Apply to bilateral sides of buttocks. Apply only once for up to 12 hours within a 24 hour period. Patches may be cut into smaller sizes with scissors prior to the removal of the release liner. Clothing may be worn over the area of application. For more information use the [employer]ed[employer] ADMINISTRATION link. 30 Patch 05/29/20 Active melatonin 3 mg Tablet Take 1 Tablet (3 mg) by mouth nightly as needed for Insomnia. 30 Tablet 05/29/20 Active metoprolol tartrate (LOPRESSOR) 25 mg tablet Take 1 Tablet (25 mg) by mouth 2 times daily. 60 Tablet 05/29/20 Active miconazole nitrate (REMEDY-AF,ZEAS ORB-AF) 2 % Powder Apply to affected area 3 times daily as needed for Other (See Comment) (Dermal fungus). 85 Gram 05/29/20 Active PARoxetine HCl (PAXIL) 10 mg tablet Take 1 Tablet (10 mg) by mouth daily. 30 Tablet 05/29/20 Active prochlorperazin e maleate (COMPAZINE) 10 mg tablet Take 1 Tablet (10 mg) by mouth every 6 hours as needed for Nausea/Emesis. 40 Tablet 05/29/20 Active Saccharomyces boulardii (FLORASTOR) 250 mg Capsule Take 2 Capsules (500 mg) by mouth 2 times daily. 60 Capsule 05/29/20 Active saliva stimulant combo #3 (BIOTENE) [place], Non-Aerosol 1 [place] by Mouth/Throat route 2 times daily. 44.3 mL 05/29/20 Active oxyCODONE (ROXICODONE) 5 mg tabletIndicatio ns:Acute pain of right shoulder Take 0.5 Tablets (2.5 mg) by mouth every 4 hours as needed for Pain, Moderate or Pain, Severe. Max Daily Amount: 15 mg 20 Tablet 05/29/20 Active levETIRAcetam (Keppra) 500 mg tablet Take 1 Tablet (500 mg) by mouth 2 times daily. 60 Tablet 05/29/20 Active gabapentin (NEURONTIN) 300 mg capsule Take 1 Capsule (300 mg) by mouth 3 times daily. 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 Elevated alkaline phosphatase level 05/07/2022 Hemiparesis of right dominant side 05/06/2022 Acute pain of right shoulder 05/06/2022 Cough 05/06/[address] 05/06/2022 Seizure 05/03/2022 Urinary hesitancy 05/02/2022 Chronic pain 05/02/2022 AF (atrial fibrillation) 05/01/2022 Chronic anticoagulation 05/01/2022 History of gastroesophageal reflux (GERD) 2021 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 HTN (hypertension) 10/21/2009 Allergic rhinitis 2008 Generalized anxiety disorder 08/27/2008 Dysphagia 04/01/2008 Intraparenchymal hematoma of brain Urinary tract infection asso ciated with indwelling urethral catheter Resolved Problems Problem Noted Date Diagnosed Date Resolved Date Hypertensive emergency 04/30/202205/06 Immunizations Immunization Administration Dates Next Due (PNEUMOVAX [...] Years Used Date Smoking Tobacco: Former Cigarettes Q uit: 10/07/1983 Smokeless Tobacco: Never Comments:Smoking History Pac ks/day: 1.50 Alcohol Use Standard Drinks/Week Comments Yes 15.8 (1 standard drink = 0.6 oz pure alcohol) Sex and Gender Information Value Date Recorded Sex Assigned at Not on file Legal Sex Male 3:47 AM GALLERY HOST Gender Identity Not on file Sexual Orientation Not on file Last Filed Vital Signs Vital Sign Reading Time Taken Comments Blood Pressure 120/77 05/29/2022 10:25 AM CDT Pulse 83 05/29/2022 10:25 AM CDT Temperature 36.9 C (98.4 F) 05/29/2022 4:00 AM CDT Respiratory Rate 18 05/29/2022 4:00 AM CDT Oxygen Saturation 96% 05/29/2022 10: 25 AM CDT Inhaled Oxygen Concentration - - Weight 74.8 kg (164 lb 12.8 oz) 05/23/2022 5:37 AM CDT bed zeroed before weighing Height 172.7 cm (5' 8 ) 05/06/2022 3:02 PM CDT Body Mass Index 25.06 05/06/2022 3:02 PM CDT Plan of Treatment Health Maintenance Due Date Last Done Comments DTAP/TDAP/TD VACCINES (1 - Tdap) 1961 ZOSTER VACCINE (1 of 2) 1992 PNEUMOCOCCAL VACCINE 50+ YEA RS (2 of 2 - PCV) 06/11/2009 06/11/2008 RSV VACCINE (60+ or ) (1 - 1-dose 75+ series) 2017 COLORECTAL SCREENING 04/24/2018 04/24/2013, 04/24/2013, 04/30/2008 INFLUENZA VACCINE (#1) 2025 08/09/2013, 2011 Insurance [address] [place] [address] MEDICARE PART A AND B [facility] Advance Directives For more information, please contact: [phone] Documents on File Type Date Recorded Patient Manager Intelligence Expl anation Advance Directive POA 05/07/2022 5:10 AM Ad rivera Directive POA * Full Code (Latest Code Status on File) Date Activated Date Inactivated Comments 05/06/2022 3:15 PM 05/29/2022 3:02 PM * Full Code Date Activated Date Inactivated Comments 04/30/2022 12:20 PM 05/06/2022 3:10 PM
--- OUTSIDE RECORDS SUMMARY | 2025-07-22 09:32 | XMS_ITS | Encounter Summary ---
Author Organization [facility] Address [address] [place] [address] Care Team Providers Care Health Care / Medical Job Titles Name Role Phone Willie Floyd MD Primary Care Provider [phone] Encounter Details Date Type Department Care Team (Latest Contact Info) Description 04/26/2006 Outpatient Historical [facility] [place] [address] [place] [address] Willie Floyd MD [address] [place] [address] Other Malaise and Fatigue (Primary Dx); Unspecified Essential Hypertension Social History Tobacco Use Types Packs/Day Years Used Date Smoking Tobacco: Never Assessed Sex and Gender Information Value Date Recorded Sex Assigned at Not on file 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
--- OUTSIDE RECORDS SUMMARY | 2025-07-22 09:32 | XMS_ITS | Encounter Summary ---
Author Organization [facility] Address [address] [place] [address] Care Team Providers Care Purchasing Director Name Role Phone Willie Floyd MD Primary Care Provider [phone] Encounter Details Date Type Department Care Team (Latest Contact Info) Description 09/25/2002 Outpatient Historical [facility] [place] [address] [place] [address] Willie Floyd MD [address] [place] [address] Routine medical exam (Primary Dx); HYPERTENSION NOS; DERMATITIS NOS; INSOMNIA NEC Social History Tobacco Use Types Packs/Day Years Used Date Smoking Tobacco: Never Assessed Sex and Gender Information Value Date Recorded Sex Assigned at Not on file Legal Sex Male 2:52 AM FRENCH BINDER Gender Identity Not on file Sexual Orientation Not on file documented as of this encounter Plan of Treatment Not on file documented as of this encounter Visit Diagnoses Diagnosis Routine medical exam- Primary Routine general medical examination at a health care facility Unspecified essential hypertension Contact dermatitis and other eczema, due to unspecified cause Insomnia, unspecified documented in this encounter Care Teams Purchasing Director Relationship Specialty Start Date End Date Willie Floyd MD PCP - General 03/31/08 documented as of this encounter
--- OUTSIDE RECORDS SUMMARY | 2025-07-22 09:32 | XMS_ITS | Encounter Summary ---
Author Organization [facility] Address [address] [place] [address] Care Team Providers Care Doctor Of Osteopathy Name Role Phone Willie Floyd MD Primary Care Provider [phone] Encounter Details Date Type Department Care Team (Latest Contact Info) Description 04/13/2005 Outpatient Historical [facility] [address] [place] [address] Willie Floyd MD [address] [place] [phone] HYPERTENSION NOS (Primary Dx) Social History Tobacco Use Types Packs/Day Years Used Date Smoking Tobacco: Never Assessed Sex and Gender Information Value Date Recorded Sex Assigned at Not on file Legal Sex Male 2:52 AM 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
--- OUTSIDE RECORDS SUMMARY | 2025-07-22 09:32 | XMS_ITS | Encounter Summary ---
Author Organization [facility] Address [address] [place] [address] Care Team Providers Care Sap Bw Consultant Name Role Phone Willie Floyd MD Primary Care Provider [phone] Encounter Details Date Type Department Care Team (Late st Contact Info) Description 04/15/2008 Outpatient Historical [facility] [address] [place] [address] Willie Floyd MD [address] [place] [phone] Social History Tobacco Use Types Packs/Day Years Used Date Smoking Tobacco: Former Cigarettes 1.5 15 0 10/07/1968 - 10/07/1983 Alcohol Use Standard Drinks/Week Comments Yes 11.7 (1 standard drink = 0.6 oz pure alcohol) aprox 2 cans beer per day Sex and Gender Information Value Date Recorded Sex Assigned at Not on file Legal Sex Male 2:52 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 Comparison: None. Findings: The images and findings were reviewed with Dr. Lucero prior to the time of dictation. Preliminary view of the abdomen shows in nondistended bowel gas pattern. Degenerative changes of the spine. The patient was given barium and an effervescent agent to swallow. There are no mucosal or masses seen in the esophagus. The esophageal motility is within normal limits. There is a small to moderate sized sliding-type hiatal hernia with associated Schatzki's ring. There are no mucosal abnormalities or masses seen in the stomach. The duodenal bulb is within normal limits. The remainder of the duodenum and visualized proximal jejunum are unremarkable. There was gastroesophageal reflux seen to the midthoracic esophagus. A 12 mm barium tablet was swallowed, and passes easily into the stomach. Impression: 1. Small to moderately size sliding-type hiatal hernia with associated Schatzki's ring. 2. Barium tablet passes through the ring promptly. - Dictated By: Al Cardenas Electronically Signed By: Yasmin Lucero M.D. Date Signed: 04/23/08 Procedure Note Genoveva Lucero - 05/01/2008 Exam: Upper GI with Air Contrast Date/Time of Exam: Apr 23, 2008 9:13:22 AM History: dysphagia. Comparison: None. Findings: The images and findings were reviewed with Dr. Lucero prior tothe time of dictation. Preliminary view of the abdomen shows in nondistended bowel gas pattern.Degenerative changes of the spine. The patient was given barium and an effervescent agent to swallow. Thereare no mucosal or masses seen in the esophagus. The esophageal motility is within normal limits. Thereis a small to moderate sized sliding-type hiatal hernia with associated Schatzki's ring. There are nomucosal abnormalities or masses seen in the stomach. The duodenal bulb is within normal limits. Theremainder of the duodenum and visualized proximal jejunum are unremarkable. There was gastroesophagealreflux seen to the midthoracic esophagus. A 12 mm barium tablet was swallowed, and passes easily intothe stomach. Impression: 1. Small to moderately size sliding-type hiatal hernia with associatedSchatzki's ring. 2. Barium tablet passes through the ring promptly. - Dictated By: Al Cardenas Electronically Signed By: Yasmin Lucero M.D. Date Signed: 04/23/08 us Willie Floyd MD DIAGNOSTIC IMAGING ORDERABLES F inal Result documented in this encounter Visit Diagnoses Not on filedocumented in this encounter Care Teams Sap Bw Consultant Relationship Specialty Start Date End Date Willie Floyd MD PCP - General 03/31/08 documented as of this encounter
--- OUTSIDE RECORDS SUMMARY | 2025-07-22 09:32 | XMS_ITS | Encounter Summary ---
Author Organization [facility] Address [address] [place] [address] Care Team Providers Care Wood Router Hand Name Role Phone Willie Floyd MD Primary Care Provider [phone] Encounter Details Date Type Department Care Team (Latest Contact Info) Description 07/18/2001 Outpatient Historical [facility] [phone] [place] [id number] Willie Floyd MD [address] [place] [phone] Unspecified essential hypertension (Primary Dx); Insomnia, unspecified Social History Tobacco Use Types Packs/Day Years Used Date Smoking Tobacco: Never Assessed Sex and Gender Information Value Date Recorded Sex Assigned at Not on file 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
--- OUTSIDE RECORDS SUMMARY | 2025-07-22 09:32 | XMS_ITS | Encounter Summary ---
Author Organization [facility] Address [address] [place] [address] Care Team Providers Care Sales Representative Raw Fibers Name Role Phone Willie Floyd MD Primary Care Provider [phone] Encounter Details Date Type Department Care Team (Latest Contact Info) Description 01/12/2005 Outpatient Historical [facility] [address] [place] [phone] Willie Floyd MD [address] [place] [phone] Routine medical exam (Primary Dx) Social History Tobacco Use Types Packs/Day Years Used Date Smoking Tobacco: Never Assessed Sex and Gender Information Value Date Recorded Sex Assigned at Not on file 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
--- OUTSIDE RECORDS SUMMARY | 2025-07-22 09:32 | XMS_ITS | Encounter Summary ---
Author Organization [facility] Address [address] [place] [address] Care Team Providers Care Electrical Apprentice Name Role Phone Willie Floyd MD Primary Care Provider [phone] Encounter Details Date Type Department Care Team (Latest Contact Info) Description 09/08/1999 Outpatient Historical [facility] [address] [place] [address] Willie Floyd MD [address] [place] [address] Cellulitis and abscess of unspecified site (Primary Dx); Contact dermatitis and other eczema, due to unspecified cause; Unspecified essential hypertension Social History Tobacco Use Types Packs/Day Years Used Date Smoking Tobacco: Never Assessed Sex and Gender Information Value Date Recorded Sex Assigned at Not on file 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
--- NOTE | 2025-07-22 09:37 | W.ED.NECK ---
HPI - Neck Pain/Injury General: Chief Complaint: Neck Pain/Injury Stated Complaint: Head and neck pain Time Seen by Provider: 07/22/25 09:18 History of Present Illness: 84-year-old male presents emergency room complaining of head and neck pain he slipped out of a chair hit his head and strained his neck. He i has previously had a stroke and is not able to ambulate without assistance he transfers with the assist of 1 of a family member is his main caregiver he is not on any anticoagulants. He denies any pain radiating to his arms but is difficult time moving today more so than he usually does requiring 2 persons to assist to transfer from wheelchair to bed. He denies any chest or abdominal pain. Related Data Home Medications ?Medication ?Instructions ?Recorded ?Confirmed acetaminophen 325 mg tablet 650 mg PO DAILY PRN Pain 07/30/22 06/09/25 (Tylenol) Previous Rx's ?Medication ?Instructions ?Recorded aspirin 81 mg tablet,delayed 81 mg PO DAILY #30 tabs 07/30/22 release methenamine hippurate 1 gram tablet 1 g PO BID Recurrent UTI #60 tabs 07/23/24 tamsulosin 0.4 mg capsule 0.4 mg PO DAILY #90 caps 09/20/24 metoprolol tartrate 25 mg tablet 12.5 mg (1/2 x 25 mg) PO BID #30 12/27/24 tabs zinc oxide-cod liver oil 40 % 1 applic topical BID PRN skin 12/27/24 topical paste (Diaper Rash) irritation #113 grams paroxetine HCl 20 mg tablet See Rx Instructions .Route 02/01/25 .COMPLEX #30 tabs amoxicillin 500 mg tablet 500 mg PO BID 10 days #20 tabs 02/17/25 npjczxfkvdqjvxp-rvkbvwaaqvcpmln-MU 4 ml PO Q6H PRN cold symptoms #118 02/17/25 2 mg-30 mg-10 mg/5 mL oral syrup mL (Bromfed DM) fluticasone propionate 50 See Rx Instructions .Route 03/22/25 mcg/actuation nasal .COMPLEX #16 grams spray,suspension pantoprazole 40 mg tablet,delayed 40 mg PO BID #180 tabs 04/13/25 release nystatin-triamcinolone 100,000 1 applic topical BID tinea #30 06/08/25 unit/g-0.1 % topical cream grams lorazepam 0.5 mg tablet 0.5 mg PO DAILY PRN Insomnia #30 06/17/25 tabs levetiracetam 500 mg tablet 500 mg PO BID #60 tabs 07/21/25 (Keppra) diclofenac sodium 75 mg 75 mg PO Q12H PRN pain #20 tabs 07/22/25 tablet,delayed release Allergies Allergy/AdvReac Type Severity Reaction Status Date / Time sulfamethoxazole (From Allergy Severe kidney Verified 06/09/25 10:24 Bactrim) failure trimethoprim (From Bactrim) Allergy Severe kidney Verified 06/09/25 10:24 failure cefepime Allergy Unconscious Verified 06/09/25 10:24 Review of Systems Const: Denies: fever(s) or chills Card: Denies: chest pain Resp: Denies: dyspnea GI: Denies: abdominal pain : Denies: dysuria, urinary frequency or urinary urgency Musc: Denies: neck pain or back pain Skin/Breast: Denies: rash PFSH ED PFSH: Medical History Aortic stenosis Urinary retention Osteoarthritis of right knee Iron deficiency anemia Aortic regurgitation Ascending aorta dilatation CVA (cerebral vascular accident) CVA in 2014 Arteriosclerosis Dyslipidemia Essential hypertension Surgical History History of hernia surgery History of resection of small bowel Family History Mother , at age 90 Healthy adult Father , at age 62 Cancer Lung Other CAD (coronary artery disease) Hyperlipidemia Hypertension Denies family history of Diabetes Clotting disorder Dementia Psychiatric illness Chronic kidney disease (CKD) Suicide Anesthesia complication Bleeding disorder Family history of premature coronary artery disease Lung disease Stroke Social History Smoking and tobacco/nicotine status: former use of tobacco/nicotine Second hand smoke exposure: No Alcohol intake: current Alcohol intake frequency: few times a month Substance/Drug Use: never Adopted: No Marital status: Current occupational status: retired Physical Exam Const: COMMON NORMALS: no acute distress GENERAL APPEARANCE: cooperative and comfortable ORIENTATION/CONSCIOUSNESS: Yes awake, Yes oriented to person, Yes oriented to place and Yes oriented to time HENMT: COMMON NORMALS: normocephalic, atraumatic and hearing grossly normal bilaterally HEAD & SCALP: normocephalic and atraumatic Resp: COMMON NORMALS: normal respiratory effort, No retractions, No use of accessory muscles and clear to auscultation bilaterally AUSCULTATION: clear to auscultation bilaterally Cardio: COMMON NORMALS: regular rate, regular rhythm and No murmurs present (Cardio) RATE: regular rate RHYTHM: regular rhythm GI: COMMON NORMALS: Soft to palpation and No hepatosplenomegaly present AUSCULTATION: Yes normoactive bowel sounds PALPATION: Yes Soft to palpation, No Tenderness to palpation present (GI), No Guarding due to palpation present (GI) and Yes No hepatosplenomegaly present Extremity: COMMON NORMALS: normal to inspection, capillary refill normal, no clubbing, cyanosis or edema, no calf tenderness and no pedal edema Neuro: SENSORIUM/ORIENTATION: Yes oriented to person, Yes oriented to place and Yes oriented to time Skin: COMMON NORMALS: no rashes or lesions noted GENERAL SKIN EXAM: no rashes or lesions noted Course Vital Signs: Vital signs: Vital Signs Temperature 97.9 F 07/22/25 09:25 Pulse Rate 73 07/22/25 11:37 Respiratory Rate 18 07/22/25 09:25 Blood Pressure 146/90 07/22/25 11:37 Pulse Oximetry 96 07/22/25 11:37 Oxygen Delivery Me thod Room Air 07/22/25 09:25 MDM - Neck Pain/Injury Medical Decision Making Patient seen and evaluated concern for cervical spine injury closed head injury including subarachnoid hemorrhage. On initial evaluation there is no focal neurologic deficits nothing to suggest stroke. Vital signs are stable no arrhythmia. Patient denied any chest pain. Knoop Workup completed CT shows previous stroke no new injury. He has significant degenerative changes but no acute cervical injury at this time will discharge patient home and follow-up with his primary care doctor. Diclofenac to use as needed. Medical Records I reviewed the patient's medical records. Lab Data I reviewed the patient's lab results. Radiology Impressions Cervical Spine CT 07/22/25 09:24 IMPRESSION: 1. No acute cervical fracture. 2. Advanced degenerative changes and facet joint arthropathy and foraminal stenoses as described above. Very similar to the study of 12/26/2024. Head CT 07/22/25 09:25 IMPRESSION: 1. No acute intracranial hemorrhage or edema. 2. Moderate to severe atrophy with small vessel disease. Numerous lacunar infarcts are stable. 3. Chronic ventriculomegaly on the basis of atrophy. All radiology interpretation(s) finalized by discharge Discharge Plan Discharge Patient Disposition: Home Clinical Impression: Fall, Hx of completed stroke, Strain of neck muscle Condition: Stable Prescriptions: New diclofenac sodium 75 mg tablet,delayed release (DR/EC) 75 mg PO Q12H PRN (Reason: pain) Qty: 20 0RF No Action amoxicillin 500 mg tablet 500 mg PO BID 10 Days Qty: 20 0RF fkyhebqmdoimlzv-[id number] [Bromfed DM] 2-30-10 mg/5 mL syrup 4 ml PO Q6H PRN (Reason: cold symptoms) Qty: 118 0RF nystatin-triamcinolone 100,000-0.1 unit/g-% cream 1 applic topical BID Qty: 30 3RF methenamine hippurate 1 gram tablet 1 g PO BID Qty: 60 12RF Rx Instructions: 1 pill twice a day with 1 g vitamin C each dose Start after completing Macrobid tamsulosin 0.4 mg capsule 0.4 mg PO DAILY Qty: 90 3RF Rx Instructions: take 1 capsule BY MOUTH EVERY DAY paroxetine HCl 20 mg tablet See Rx Instructions .ROUTE .COMPLEX Qty: 30 5RF Dose Instruction: TAKE 1 TABLET BY MOUTH EVERY DAY FOR mood Rx Instructions: TAKE 1 TABLET BY MOUTH EVERY DAY FOR mood fluticasone propionate 50 mcg/actuation spray,suspension See Rx Instructions .ROUTE .COMPLEX Qty: 16 5RF Dose Instruction: USE 1 SPRAY in each nostril EVERY DAY NEEDED FOR nasal congestion Rx Instructions: USE 1 SPRAY in each nostril EVERY DAY NEEDED FOR nasal congestion pantoprazole 40 mg tablet,delayed release (DR/EC) 40 mg PO BID Qty: 180 3RF lorazepam 0.5 mg tablet 0.5 mg PO DAILY PRN (Reason: Insomnia) Qty: 30 5RF levetiracetam [Keppra] 500 mg tablet 500 mg PO BID Qty: 60 5RF acetaminophen [Tylenol] 325 mg Tablet 650 mg PO DAILY PRN (Reason: Pain) aspirin 81 mg tablet,delayed release (DR/EC) 81 mg PO DAILY Qty: 30 0RF metoprolol tartrate 25 mg tablet 12.5 mg PO BID Qty: 30 0RF Rx Instructions: TAKE 1 TABLET BY MOUTH TWICE DAILY Diaper Rash 40 % paste 1 applic topical BID PRN (Reason: skin irritation) Qty: 113 0RF Rx Instructions: apply to penis and perineum twice a day as needed Discharge Orders: Discharge ED (Routine); Ordered 07/22/25 Ordered By: Isaiah Perez Referrals: Sammy Cai, [Primary Care Provider, Family Practice] Discharge Diet: Usual diet Discharge Activity: Increase activity as tolerated Patient Instructions: Opioid Safety, Pain Management, Patient Portal & Miguel Instructions Activity Restrictions/Additional Instructions: Thank you for choosing [employer] for your healthcare needs today. It is very important that you follow up as instructed or that you return to the Emergency Department should you have concerns or if your condition changes or worsens in any way. Emergency department visits are focused on emergent conditions, in some cases you may require further evaluation on an outpatient basis. You were seen in the emergency room after a fall scans did not show any abnormalities. Recommend you follow-up with your primary care doctor to evaluate for long-term care plans. (Please note that included in your discharge packet is information concerning opioid safety and pain management. This information is given to all patients were discharged from the ER regardless of their discharge diagnosis or the medicines they usually take or are prescribed.) Print Language: Prydeinig Coding Level of Care Code ED Mental Health Aides Teacher for Naun Landers
[2025-07-22 11:37] VITALS: BP 146/90; PULSE 73; O2SAT 96
== END 2025-07-22 11:42 | disposition home or self-care (01) ==
PROVIDERS: Emergency Provider Family Medicine; PCP Family Medicine
DX: S16.1XXA Strain of muscle, fascia and tendon at neck level, initial encounter (principal); Z86.73 Personal history of transient ischemic attack (TIA), and cerebral infarction without residual deficits; Z79.82 Long term (current) use of aspirin; E78.5 Hyperlipidemia, unspecified; I10 Essential (primary) hypertension; Z87.891 Personal history of nicotine dependence; W07.XXXA Fall from chair, initial encounter
CPT/HCPCS: 70450; 72125; 99284

== ENCOUNTER → 2025-08-10 09:38 | Outpatient (BNVA) | payer MEDICARE, OTHER, SELFPAY | PROVIDERS: PCP Family Medicine; Visit Provider Dermatology | DX: D04.39 Carcinoma in situ of skin of other parts of face (principal); B35.1 Tinea unguium; L60.8 Other nail disorders; L82.0 Inflamed seborrheic keratosis; L29.89 Other pruritus; L53.8 Other specified erythematous conditions; L57.0 Actinic keratosis | CPT/HCPCS: 17000; 17110; 99213 ==

== ENCOUNTER → 2025-09-01 10:31 | Outpatient (BNVA) | payer MEDICARE, OTHER, SELFPAY | PROVIDERS: PCP Family Medicine; Visit Provider Family Medicine | DX: I48.91 Unspecified atrial fibrillation (principal); I73.9 Peripheral vascular disease, unspecified; R15.9 Full incontinence of feces; N28.9 Disorder of kidney and ureter, unspecified; N39.0 Urinary tract infection, site not specified; D64.9 Anemia, unspecified; I63.9 Cerebral infarction, unspecified; E03.9 Hypothyroidism, unspecified | CPT/HCPCS: 80053; 82607; 84443; 85025 ==